=== PATIENT | female | born 1995 | race Caucasian/White ===

== ENCOUNTER 2023-06-25 20:33 | Outpatient (REF) | payer SELFPAY ==
[2023-07-01 14:09] LABS: Age Gdln ACOG Testing Note (.); IGP, rfx Aptima HPV ASCU Note (.)
== END 2023-06-25 20:34 | disposition home or self-care (01) ==
LOC: LAB 20:33
PROVIDERS: Visit Provider Obstetrics & Gynecology
DX: Z01.419 Encounter for gynecological examination (general) (routine) without abnormal findings (principal)
CPT/HCPCS: G0145

== ENCOUNTER 2023-10-03 13:46 | Outpatient (OUT) | payer SELFPAY ==
--- NOTE | 2023-10-03 13:48 | US_ITS ---
The [address] [address] Patient Name: ETHAN MADRIGAL MRN: [id number] date: 1995 Sex: F Assigned Patient Location: Current Patient Location: US Accession/Order Number: [id number] Exam Date: 10/03/2023 13:48 Report Date: 10/03/2023 22:42 At the request of: ASHOK AGEE Procedure: US OB transvaginal EXAMINATION: US OB transvaginal HISTORY: MISSED MENSES COMPARISON: No relevant comparison available. FINDINGS: GESTATIONAL SAC: Present and normal appearing. YOLK SAC: Present and normal appearing. POLE: Present and normal appearing. CARDIAC: Present. UTERUS: Small subchorionic hematoma/implantation bleed. OVARIES: Right: Normal. Left: Not seen. CERVIX: 5.6 cm in length and closed. CUL-DE-SAC: Normal. OTHER: None. AGE BY LMP: 8 weeks 6 days NEL BY LMP: 05/08/2024 AGE BY US CRL: 8 weeks 5 days NEL BY US CRL: 05/09/2024 US/US OB transvaginal IMPRESSION: 1. Single live intrauterine . Electronically authenticated by: JAZMÍN MURPHY Date: 10/03/2023 22:42
== END 2023-10-03 13:47 | disposition home or self-care (01) ==
LOC: US 13:46
PROVIDERS: Visit Provider Obstetrics & Gynecology
DX: Z34.91 Encounter for supervision of normal pregnancy, unspecified, first trimester (principal); N92.6 Irregular menstruation, unspecified; Z3A.08 8 weeks gestation of pregnancy
CPT/HCPCS: 76817

== ENCOUNTER 2023-11-28 14:17 | Outpatient (OUT) | payer BC, SELFPAY ==
[2023-11-28 15:16] LABS: Estimated Average Glucose 88 mg/dL; Glycohemoglobin A1C 4.7 % (4.5-6.2); Thyroid Stimulating Hormone 4.021 uIU/mL (0.358-3.740)
[2023-11-28 15:17] LABS: Basophils Percent Auto 0.4 % (0.2-2.0); Eosinophils Absolute Auto 0.1 10^3/uL (0.0-0.7); Eosinophils Percent Auto 1.2 % (0.9-7.0); Hematocrit 34.7 % (36.0-48.0); Hemoglobin 11.4 g/dL (12.0-16.0); Immature Granulocytes Abs Auto 0.15 10^3/uL (0.00-0.03); Immature Granulocytes Pct Auto 1.3 % (0.0-0.5); Lymphocytes Absolute Auto 2.6 10^3/uL (1.2-3.8); Lymphocytes Percent Auto 22.8 % (20.5-60.0); Mean Corpuscular HGB Conc 32.9 g/dL (29.9-35.2); Mean Corpuscular Hemoglobin 30.5 pg (26.7-34.0); Mean Corpuscular Volume 92.8 fL (81.0-99.0); Mean Platelet Volume 10.1 fL (9.5-13.5); Monocytes Absolute Auto 0.7 10^3/uL (0.3-0.8); Monocytes Percent Auto 6.5 % (1.7-12.0); Neutrophils Absolute Auto 7.7 10^3/uL (1.4-6.5); Neutrophils Percent Auto 67.8 % (43.0-75.0); Platelet Count 261 10^3/uL (150-450); Red Blood Count 3.74 10^6/uL (4.20-5.40); Red Cell Distribution Width 12.8 % (11.0-15.0); White Blood Count 11.3 10^3/uL (4.0-11.0)
[2023-11-29 07:10] LABS: Rubella Antibodies, IgG <0.90 index (Immune >0.99)
[2023-11-29 08:12] LABS: HCV Ab Non Reactive (Non Reactive); HIV Ab/p24 Ag Screen Non Reactive (Non Reactive)
[2024-01-16 14:45] LABS: HBsAg Screen Negative (Negative); Rapid Plasma Reagin, Quant Non Reactive titer (NonRea<1:1)
== END 2023-11-28 14:18 | disposition home or self-care (01) ==
LOC: LAB 14:17
PROVIDERS: Visit Provider Obstetrics & Gynecology
DX: N92.6 Irregular menstruation, unspecified (principal); Z36.0 Encounter for antenatal screening for chromosomal anomalies
CPT/HCPCS: 36415; 83036; 84443; 85025; 86592; 86762; 86803; 86850; 86900; 86901; 87086; 87150; 87186; 87340; 87389

== ENCOUNTER 2023-12-20 11:05 | Outpatient (OUT) | payer BC, SELFPAY ==
--- OUTSIDE RECORDS SUMMARY | 2023-12-20 11:08 | XMS_ITS | CCD ---
Author Name Unknown Address [address] [place] [id number] Organization [facility] Care Team Providers Care Project Architect Name Role Phone OMAR, DR FELIZ Attending Unavailable KARASIK, DR FELIZ Admitting Unavailable ANUEL, DR PULIDO Attending Unavailable ANUEL, DR PULIDO Consulting Unavailable ANUEL, DR PULIDO Admitting Unavailable ANUEL, DR PULIDO Attending Unavailable ANUEL, DR PULIDO Consulting Unavailable ANUEL, DR PULIDO Admitting Unavailable ANUEL, DR PULIDO Attending Unavailable ANUEL, DR PULIDO Consulting Unavailable ANUEL, DR PULIDO Admitting Unavailable KARASIK, DR FELIZ Consulting Unavailable KARASIK, DR FELIZ Admitting Unavailable KARASIK, DR FELIZ Procedure Practitioner Unava ilable KARASIK, DR FELIZ Attending Unavailable ANUEL, DR PULIDO Consulting Unavailable AGUBOSIM, ANDRE Consulting Unavailable IOFFE-PARRIS, FRANCESCO Consulting Unavailab le KARASIK, DR FELIZ Consulting Unavailable KARASIK, DR FELIZ Admitting Unavailable KARASIK, DR FELIZ Attending Unavailable D LO, DR MARIELLA Ramirez Consulting Unavailable ANUEL, DR PULIDO Consulting Unavailable ANUEL, DR PULIDO Attending Unavailable ANUEL, DR PULIDO Admitting Unavailable ANUEL, DR PULIDO Attending Unavailable ANUEL, DR PULIDO Admitting Unavailable ANUEL, ASHOK Attending Unavailable ANUEL, ASHOK Attending Unavailable Problems Active Problems Problem Classification Problem Date Documented Da te Episodic/Chronic Other and delivery including normal (9 sources) Encounter for care and examination of lactating mother; Translations: [Encounter for routine follow-up] Onset: 01-01-2022 Episodic Unclassified (1 source) CONTACT W/AND (SUSP) EXPOS COVID-19; Translations: [CONTACT W/AND (SUSP) EXPOS COVID-19] Onset: 01-03-2022 Past or Other Problems Problem Classification Problem Date Documented Date Episodic/Chronic Diabetes mellitus without complication (4 sources) Other abnormal glucose; Translations: [OTHER ABNORMAL GLUCOSE] Onset: 11-07-2021 Episodic Immunizations and screening for infectious disease (1 source) Contact with and (suspected) exposure to infections with a predominantly sexual mode of transmission; Translations: [CONTCT W EXPOS INFECT SEXUAL TRNSMS] Onset: 11-01-2021 Episodic Other complications of ; puerperium affecting management of mother (1 source) Abnormality in heart rate and rhythm complicating labor and delivery; Translations: [ABN FETL HEART RATE RHYTHM COMP L AND D] Onset: 01-03-2022 Episodic Other complications of ; puerperium affecting management of mother (1 source) Streptococcus B carrier state complicating childbirth; Translations: [STREP B GRIFFITH STATE COMP CHILDBIRTH] Onset: 01-03-2022 Episodic Other complications of (1 source) Maternal care for excessive growth, third trimester, not applicable or unspecified; Translations: [MAT CARE EXCSS FTL GRTH 3RD TRI UNS] Onset: 01-03-2022 Episodic Other screening for suspected conditions (not mental disorders or infectious disease) (8 sources) Encounter for screening for Streptococcus B; Translations: [Encounter for screening for diabetes mellitus] Onset: 10-26-2021 Episodic Prolonged (4 sources) Post-term ; Translations: [POST-TERM ] Onset: 12-24-2021 Episodic Residual codes; unclassified (1 source) 40 weeks gestation of ; Translations: [40 WEEKS GESTATION OF ] Onset: 01-03-2022 Episodic Umbilical cord complication (1 source) Labor and delivery complicated by cord around neck, without compression, not applicable or unspecified; Translations: [L AND D COMP CORD NECK NO COMPRS NA/UNS] Onset: 01-03-2022 Episodic Results Test Name Value Interpretation Reference Range Facil ity CBC W MANUAL DIFFon 12-26-19 22 ATYPICAL LYMPH # Normal [facility] Comment on above: Performed By: #### C NOMAN #### [facility] [address] [place], [place] [address] Dr. Amy Carrion ATYPICAL LYMPH % Normal [facility] Comment on above: Performed By: #### C NOMAN #### [facility] [address] [place] [address] [address] Amy Carrion BAND # 0.4 103/ul Critically high 0.0-0.3 [facility] Comment on above: Performed By: #### C BCMAN #### [facility] [address] [place] [address] Dr. Amy Carrion BAND % 3 % Normal 0-5 [facility] Comment on above: Performed By: #### C NOMAN #### [facility] [address] [place] [address] Dr. Amy Carrion BASOM # 0.00 103/ul Normal 0.00-0.10 [facility] Comment on above: Performed By: #### C NOMAN #### [facility] [address] [place] [address] Dr. Amy Carrion BASOM % 0.0 % Critically low 0.2-2.0 [facility] Comment on above: Performed By: #### C NOMAN #### [facility] [address] [place] [address] Dr. Amy Carrion BLAST # Normal [facility] Comment on above: Performed By: #### C NOMAN #### [facility] [address] [place] [address] Dr. Amy Carrion BLAST % Normal [facility] Comment on above: Performed By: #### C NOMAN #### [facility] [address] [place] [address] Dr. Amy Carrion CORRECTED WBC Normal 4.0-11.0 [facility] Comment on above: Performed By: #### C BCKAM #### [facility] [address] [place] [address] Dr. Amy Carrion EOS # 0.00 103/ul Normal 0.00-0.70 [facility] Comment on above: Performed By: #### C NOMAN #### [facility] [address] [place] [address] Dr. Amy Carrion EOS% 0.0 % Critically low 0.9-7.0 [facility] Comment on above: Performed By: #### C NOMAN #### [facility] [address] [place] [address] [address] Amy Carrion HCT 24.9 % Critically low 36.0-48.0 [facility] Comment on above: Performed By: #### C NOMAN #### [facility] [address] [place] [address] Dr. Amy Carrion HGB 8.0 g/dl Critically low 12.0-16.0 [facility] Comment on above: Performed By: #### C NOMAN #### [facility] [address] [place] [address] Dr. Amy Carrion LYMPHM # 3.06 103/ul Normal 1.20-3.80 [facility] Comment on above: Performed By: #### C NOMAN #### [facility] [address] [place] [address] Dr. Amy Carrion LYMPHM% 22.0 % Normal 20.5-60.0 [facility] Comment on above: Performed By: #### C NOMAN #### [facility] [address] [place] [address] Dr. Amy Carrion MCH 30.8 pg Normal 26.7-34.0 [facility] Comment on above: Performed By: #### C NOMAN #### [facility] [address] [place] [address] Dr. Amy Carrion MCHC 32.1 g/dl Normal 29.9-35.2 [facility] Comment on above: Performed By: #### C NOMAN #### [facility] [address] [place] [address] Dr. Amy Carrion MCV 95.8 fL Normal 81.0-99.0 [facility] Comment on above: Performed By: #### C NOMAN #### [facility] [address] [place] [address] Dr. Amy Carrion METAMYELOCYTE # Normal [facility] Comment on above: Performed By: #### C NOMAN #### [facility] [address] [place] [address] Dr. Amy Carrion METAMYELOCYTE % Normal [facility] Comment on above: Performed By: #### C NOMAN #### [facility] [address] [place] [address] [address] Amy Carrion MONOM# 1.25 103/ul Critically high 0.30-0.80 [facility] Comment on above: Performed By: #### C NOMAN #### [facility] [address] [address] [address] Amy Carrion MONOM% 9.0 % Normal 1.7-12.0 [facility] Comment on above: Performed By: #### C NOMAN #### [facility] [address] [address] [address] Amy Carrion MPV 11.0 fL Normal 9.5-13.5 [facility] Comment on above: Performed By: #### C NOMAN #### [facility] [address] [place] [address] Dr. Amy Carrion MYELOCYTE # Normal [facility] Comment on above: Performed By: #### C NOMAN #### [facility] [address] [place] [address] Dr. Amy Carrion MYELOCYTE % Normal [facility] Comment on above: Performed By: #### C NOMAN #### [facility] [address] [place] [address] Dr. Amy Carrion NRBC Normal [facility] Comment on above: Performed By: #### C NOMAN #### [facility] [address] [place] [address] Dr. Amy Carrion PLT 170 103/ul Normal 150-450 [facility] Comment on above: Performed By: #### C NOMAN #### [facility] [address] [place] [address] Dr. Amy Carrion RBC 2.60 106/ul Critically low 4.20-5.40 [facility] Comment on above: Performed By: #### C NOMAN #### [facility] [address] [place] [address] [address] Amy Carrion RDW 13.1 % Normal 11.0-15.0 [facility] Comment on above: Performed By: #### C BCMAN #### [facility] [address] [place] [address] Dr. Amy Carrion SEG # 9.17 103/ul Critically high 1.40-6.50 [facility] Comment on above: Performed By: #### C BCMAN #### [facility] [address] [place] [address] Dr. Amy Carrion SEG % 66.0 % Normal 43.0-75.0 [facility] Comment on above: Performed By: #### C BCMAN #### [facility] [address] [place] [address] Dr. Amy Carrion WBC 13.9 103/ul Critically high 4.0-11.0 [facility] Comment on above: Performed By: #### C NOMAN #### [facility] [address] [place] [address] Dr. Amy Carrion CBC AUTO DIFFon 12-25-2021 BASO # 0.0 103/ul Normal 0.0-0.1 [facility] Comment on above: Performed By: #### C BC #### [facility] [address] [place] [address] Dr. Amy Carrion Basophils/100 WBC (Bld) 0.1 % Critically low 0.2-2.0 [facility] Comment on above: Performed By: #### C BC #### [facility] [address] [place] [address] Dr. Amy Carrion EO # 0.0 103/ul Normal 0.0-0.7 [facility] Comment on above: Performed By: #### C BC #### [facility] [address] [place] [address] Dr. Amy Carrion Eosinophils/100 WBC (Bld) 0.0 % Critically low 0.9-7.0 [facility] Comment on above: Performed By: #### C BC #### [facility] [address] [place] [address] Dr. Amy Carrion Erythrocyte distribution width (RBC) [Ratio] 13.0 % Normal 11.0-15.0 [facility] Comment on above: Performed By: #### C BC #### [facility] [address] [place] [address] [address] Amy Carrion Hematocrit (Bld) [Volume fraction] 25.2 % Critically low 36.0-48.0 [facility] Comment on above: Performed By: #### C BC #### [facility] [address] [place] [address] [address] Amy Carrion Hemoglobin (Bld) [Mass/Vol] 8.2 g/dL Critically low 12.0-16.0 [facility] Comment on above: Result Comment: Post Performed By: #### C BC #### [facility] [address] [place] [address] Dr. Amy Carrion IG # 0.27 10e3/ul Critically high 0.00-0.03 [facility] Comment on above: Performed By: #### C BC #### [facility] [address] [place] [address] Dr. Amy Carrion IG % 1.3 % Critically high 0.0-0.5 [facility] Comment on above: Performed By: #### C BC #### [facility] [address] [place] [address] Dr. Amy Carrion LYMPH # 2.3 103/ul Normal 1.2-3.8 [facility] Comment on above: Performed By: #### C BC #### [facility] [address] [place] [address] Dr. Amy Carrion Lymphocytes/100 WBC (Bld) 10.8 % Critically low 20.5-60.0 [facility] Comment on above: Performed By: #### C BC #### [facility] [address] [place] [address] Dr. Amy Carrion MANUAL DIFF REQ NO Normal [facility] Comment on above: Performed By: #### C BC #### [facility] [address] [place] [address] Dr. Amy Carrion MCH (RBC) [Entitic mass] 30.6 pg Normal 26.7-34.0 [facility] Comment on above: Performed By: #### C BC #### [facility] [address] [place] [address] [address] Amy Carrion MCHC (RBC) [Mass/Vol] 32.5 g/dL Normal 29.9-35.2 [facility] Comment on above: Performed By: #### C BC #### [facility] [address] [place] [address] [address] Amy Carrion MCV (RBC) [Entitic vol] 94.0 fL Normal 81.0-99.0 [facility] Comment on above: Performed By: #### C BC #### [facility] [address] [place] [address] [address] Amy Carrion MONO # 1.8 103/ul Critically high 0.3-0.8 [facility] Comment on above: Performed By: #### C BC #### [facility] [address] [place] [address] Dr. Amy Carrion Monocytes/100 WBC (Bld) 8.4 % Normal 1.7-12.0 [facility] Comment on above: Performed By: #### C BC #### [facility] [address] [place] [address] [address] Amy Carrion NEUT # 16.7 103/ul Critically high 1.4-6.5 [facility] Comment on above: Performed By: #### C BC #### [facility] [address] [place] [address] Dr. Amy Carrion Neutrophils/100 WBC (Bld) 79.4 % Critically high 43.0-75.0 [facility] Comment on above: Performed By: #### C BC #### [facility] [address] [place] [address] [address] Amy Carrion Platelet mean volume (Bld) [Entitic vol] 10.9 fL Normal 9.5-13.5 [facility] Comment on above: Performed By: #### C BC #### [facility] [address] [place] [address] [address] Amy Carrion PLT 167 103/ul Normal 150-450 [facility] Comment on above: Performed By: #### C BC #### [facility] [address] [place] [address] Dr. Amy Carrion RBC 2.68 106/ul Critically low 4.20-5.40 [facility] Comment on above: Performed By: #### C BC #### [facility] [address] [place] [address] Dr. Amy Carrion WBC 21.0 103/ul Critically high 4.0-11.0 [facility] Comment on above: Performed By: #### C BC #### [facility] [address] [place] [address] Dr. Amy Carrion ASYMPTOMATIC COVID-19 ANTIGE Non 12-24-2021 EUA Statement SEE BELOW Normal [facility] Comment on above: Result Comment: This test has not been FDA cleared or approved, but has been authorized by the FDA under an Emergency Use Authorization (EUA) for use by authorized laboratories certified under CLIA that meet the requirements to perform moderate or high complexity testing. This test has been authorized only for the detection of proteins from SARS-CoV-2, not for any other viruses or pathogens. The emergency use of this test is authorized for the duration of the declaration that circumstances exist justifying the authorization of emergency use of in vitro diagnostic tests for detection and/or diagnosis of Covid-19 under section 564(b)(1) of the Act, 21 U.S.C. 360bbb-3(b)(1), unless the declaration is terminated or authorization is revoked sooner. Performed By: #### C VDAGA #### [facility] [address] [place] [address] Dr. Amy Carrion SARS-CoV-2 (COVID-19) RNA KERA+probe Ql (Unsp spec) Negative Normal NEGATIVE [facility] Comment on above: Result Comment: Nega tive results are presumptive. They do not preclude infection and should not be used as the sole basis for treatment decisions. Additional confirmatory testing by a molecular method should be considered. Performed By: #### C VDAGA #### [facility] [address] [place] [address] Dr. Amy Carrion CBC W MANUAL DIFFon 12-24-19 22 ATYPICAL LYMPH # Normal [facility] Comment on above: Performed By: #### C NOMAN #### [facility] [address] [place] [address] Dr. Amy Carrion ATYPICAL LYMPH % Normal [facility] Comment on above: Performed By: #### C NOMAN #### [facility] [address] [place] [address] Dr. Amy Carrion BAND # 0.3 103/ul Normal 0.0-0.3 [facility] Comment on above: Performed By: #### C NOMAN #### [facility] [address] [place] [address] Dr. Amy Carrion BAND % 2 % Normal 0-5 [facility] Comment on above: Performed By: #### C NOMAN #### [facility] [address] [place] [address] Dr. Amy Carrion BASOM # 0.00 103/ul Normal 0.00-0.10 [facility] Comment on above: Performed By: #### C NOMAN #### [facility] [address] [place] [address] Dr. Amy Carrion BASOM % 0.0 % Critically low 0.2-2.0 [facility] Comment on above: Performed By: #### C NOMAN #### [facility] [address] [place] [address] Dr. Amy Carrion BLAST # Normal [facility] Comment on above: Performed By: #### C NOMAN #### [facility] [address] [place] [address] Dr. Amy Carrion BLAST % Normal [facility] Comment on above: Performed By: #### C NOMAN #### [facility] [address] [place] [address] Dr. Amy Carrion CORRECTED WBC Normal 4.0-11.0 [facility] Comment on above: Performed By: #### C NOMAN #### [facility] [address] [place] [address] Dr. Amy Carrion EOS # 0.00 103/ul Normal 0.00-0.70 [facility] Comment on above: Performed By: #### C NOMAN #### [facility] [address] [place] [address] [address] Amy Carrion EOS% 0.0 % Critically low 0.9-7.0 [facility] Comment on above: Performed By: #### C NOMAN #### [facility] [address] [place] [address] [address] Amy Carrion HCT 36.0 % Normal 36.0-48.0 [facility] Comment on above: Performed By: #### C NOMAN #### [facility] [address] [place] [address] Dr. Amy Carrion HGB 12.2 g/dl Normal 12.0-16.0 [facility] Comment on above: Performed By: #### C NOMAN #### [facility] [address] [place] [address] Dr. Amy Carrion LYMPHM # 1.56 103/ul Normal 1.20-3.80 [facility] Comment on above: Performed By: #### Luzmaria TINEO #### [facility] [address] [place] [address] Dr. Amy Carrion LYMPHM% 9.0 % Critically low 20.5-60.0 [facility] Comment on above: Performed By: #### C NOMAN #### [facility] [address] [place] [address] Dr. Amy Carrion MCH 30.8 pg Normal 26.7-34.0 [facility] Comment on above: Performed By: #### C NOMAN #### [facility] [address] [place] [address] Dr. Amy Carrion MCHC 33.9 g/dl Normal 29.9-35.2 [facility] Comment on above: Performed By: #### Luzmaria TINEO #### [facility] [address] [place] [address] Dr. Amy Carrion MCV 90.9 fL Normal 81.0-99.0 [facility] Comment on above: Performed By: #### Luzmaria TINEO #### [facility] [address] [place] [address] Dr. Amy Carrion METAMYELOCYTE # Normal [facility] Comment on above: Performed By: #### C NOMAN #### [facility] [address] [place] [address] [address] Amy Carrion METAMYELOCYTE % Normal [facility] Comment on above: Performed By: #### C NOMAN #### [facility] [address] [address] [address] Amy Carrion MONOM# 0.86 103/ul Critically high 0.30-0.80 [facility] Comment on above: Performed By: #### C NOMAN #### [facility] [address] [address] [address] Amy Carrion MONOM% 5.0 % Normal 1.7-12.0 [facility] Comment on above: Performed By: #### C NOMAN #### [facility] [address] [place] [address] Dr. Amy Carrion MPV 11.1 fL Normal 9.5-13.5 [facility] Comment on above: Performed By: #### C NOMAN #### [facility] [address] [place] [address] Dr. Amy Carrion MYELOCYTE # Normal [facility] Comment on above: Performed By: #### C NOMAN #### [facility] [address] [place] [address] Dr. Amy Carrion MYELOCYTE % Normal [facility] Comment on above: Performed By: #### C NOMAN #### [facility] [address] [place] [address] Dr. Amy Carrion NRBC Normal [facility] Comment on above: Performed By: #### C NOMAN #### [facility] [address] [place] [address] [address] Amy Carrion PLT 203 103/ul Normal 150-450 [facility] Comment on above: Performed By: #### C NOMAN #### [facility] [address] [place] [address] Dr. Amy Carrion RBC 3.96 106/ul Critically low 4.20-5.40 [facility] Comment on above: Performed By: #### C NOMAN #### [facility] [address] [place] [address] [address] Amy Carrion RDW 12.7 % Normal 11.0-15.0 [facility] Comment on above: Performed By: #### C NOMAN #### [facility] [address] [place] [address] [address] Amy Carrion SEG # 14.53 103/ul Critically high 1.40-6.50 [facility] Comment on above: Performed By: #### C NOMAN #### [facility] [address] [place] [address] [address] Amy Carrion SEG % 84.0 % Critically high 43.0-75.0 [facility] Comment on above: Performed By: #### C NOMAN #### [facility] [address] [place] [address] Dr. Amy Carrion WBC 17.3 103/ul Critically high 4.0-11.0 [facility] Comment on above: Performed By: #### Luzmaria TINEO #### [facility] [address] [place] [address] Dr. Amy Carrion DRUG SCREEN RAPID (URINE)on 12-24-2021 AMP Negative Normal NEGATIVE [facility] Comment on above: Performed By: #### D RUGRPD #### [facility] [address] [place] [address] Dr. Amy Carrion BAR Negative Normal NEGATIVE [facility] Comment on above: Performed By: #### D RUGRPD #### [facility] [address] [place] [address] Dr. Amy Carrion BUP Negative Normal NEGATIVE [facility] Comment on above: Performed By: #### D RUGRPD #### [facility] [address] [place] [address] Dr. Amy Carrion BZO Negative Normal NEGATIVE [facility] Comment on above: Performed By: #### D RUGRPD #### [facility] [address] [address] [address] Amy Carrion MARISSA Negative Normal NEGATIVE [facility] Comment on above: Performed By: #### D RUGRPD #### [facility] [address] [place] [address] Dr. Amy Carrion CUT-OFFS SEE BELOW Normal [facility] Comment on above: Result Comment: AMP (Amphetamine): 500ng/mL, BAR (Barbituates): 200 ng/mL, BZO (Benzodiazepines): 150 ng/mL, BUP (Buprenorphine): 10 ng/mL, MARISSA (Cocaine): 150 ng/mL, mAMP (Methamphetamine): 500 ng/mL, MTD (Methadone): 200 ng/mL, OPI (Opiates): 100 ng/mL, OXY (Oxycodone): 100 ng/mL, PCP (Phencyclidine): 25 ng/mL, PPX (Propoxyphene): 300 ng/mL, THC (Cannabinoids): 50 ng/mL, TCA (Trycyclic Antidepressants): 300 ng/mL Performed By: #### D RUGRPD #### [facility] [address] [place] [address] Dr. Amy Carrion DRUG CUT HEADER DRUG CLASS TEST SYSTEM CUT-OFF CONCENTRATIONS ARE FOLLOWS: Normal [facility] Comment on above: Performed By: #### D RUGRPD #### [facility] [address] [place] [address] Dr. Amy Carrion mAMP Negative Normal NEGATIVE [facility] Comment on above: Performed By: #### D RUGRPD #### [facility] [address] [place] [address] Dr. Amy Carrion MTD Negative Normal NEGATIVE [facility] Comment on above: Performed By: #### D RUGRPD #### [facility] [address] [place] [address] Dr. Amy Carrion OPI Negative Normal NEGATIVE [facility] Comment on above: Performed By: #### D RUGRPD #### [facility] [address] [place] [address] Dr. Amy Carrion OXY Negative Normal NEGATIVE [facility] Comment on above: Performed By: #### D RUGRPD #### [facility] [address] [place] [address] Dr. Amy Carrion PCP Negative Normal NEGATIVE [facility] Comment on above: Performed By: #### D RUGRPD #### [facility] [address] [place] [address] Dr. Amy Carrion PPX Negative Normal NEGATIVE [facility] Comment on above: Performed By: #### D RUGRPD #### [facility] [address] [address] [address] Amy Carrion TCA Negative Normal NEGATIVE [facility] Comment on above: Performed By: #### D RUGRPD #### [facility] [address] [place] [address] Dr. Amy Carrion THC Negative Normal NEGATIVE [facility] Comment on above: Performed By: #### D RUGRPD #### [facility] [address] [place] [address] Dr. Amy Carrion TYPE AND SCREENon 12-24-2021 TYPE AND SCREEN Negative Normal [facility] Comment on above: Performed By: #### G TT3P #### [facility] [address] [place] [address] Dr. Amy Carrion US PREG BIOPHY W NON STRESSo n 12-22-2021 US PREG BIOPHY W NON STRESS EXAMINATION: US PREG BIOPHY W NON STRESS HISTORY: Post-term COMPARISON: No relevant comparison available. TECHNIQUE: Ultrasound biophysical profile was performed in the radiology department. FINDINGS: BREATHING MOVEMENTS: 2.0 GROSS BODY MOVEMENTS: 2.0 TONE: 2.0 QUALITATIVE AMNIOTIC FLUID VOLUME: 2.0 PRESENTATION: Cephalic HEART RATE: 132.4 bpm H.B./min AMNIOTIC FLUID VOLUME: 22.2 cm cm GESTATIONAL AGE: 40 weeks 0 days CONCLUSION: Total biophysical profile score: 8.0 Electronically authenticated by: MARIELLA WHITEHEAD Date: 2021-12-22 10:47 Normal [facility] US PREG GROWTHon 12-22-2021 US PREG GROWTH EXAMINATION: US PREG GROWTH HISTORY: Large for gestation age fetus COMPARISON: No relevant comparison available. FINDINGS: Heart Rate: 132.4 bpm Amniotic Fluid Volume: 22.2 cm , above the 95th percentile Number: 1.0 Position: Cephalic presentation, longitudinal lie Maximum Vertical Pocket: 5.8 cm cm 3.2 cm cm 9.7 cm cm 3.4 cm cm BIOMETRY: BPD: 9.5 cm cm; 38 weeks 4 days; 57% HC: 34.3 cmcm; 39 weeks 5 days, 39% AC: 37.9 cm cm; 41 weeks 6 days, greater than 97% FL: 7.6 cm cm; 38 weeks 6 days; 32.6 % % EFW: 4131.4 grams, 9 lbs. 2 oz., 87% FL/AC: 20.0 FL/BPD: 80.2 HC/AC: 0.9 GESTATIONAL AGE: Age by EDC: 40 weeks 0 days NEL by EDC: 12/22/2021 Age by US: 39 weeks 5 days NEL by US: 12/24/2021 IMPRESSION: Polyhydramnios Estimated weight 9 lbs. 2 oz. Electronically authenticated by: MARIELLA WHITEHEAD Date: 2021-12-22 10:49 Normal [facility] GROUP B STREP CULTUREon S. agalactiae Ag Ql (Unsp spec) Culture Observations: Faxed to Dr. Bose/Dr. Nelson's office 11/27/21. Isolate 1 Streptococcus agalactiae Heavy growth of ORGANISM 1 Streptococcus agalactiae ANTIBIOTIC M.I.C RX STATUS Benzylpenicillin <=0.06 S F Ampicillin <=0.25 S F Cefotaxime <=0.12 S F Ceftriaxone <=0.12 S F Levofloxacin 0.5 S F Inducible Clindamycin Resistance Neg NEG F Erythromycin <=0.12 S F Clindamycin <=0.25 S F Linezolid <=2 S F Vancomycin 0.5 S F Tetracycline >=16 R F Normal [facility] Comment on above: Performed By: #### G TT3P #### [facility] [address] [place] [address] Dr. Amy Carrion GTT 3 HR PREGon 11-07-2021 Glucose [Mass/Vol] 91 mg/dL Normal 74-106 [facility] Comment on above: Performed By: #### G TT3P #### [facility] [address] [place] [address] Dr. Amy Carrion Glucose [Mass/Vol] 172 mg/dL Normal [facility] Comment on above: Performed By: #### G TT3P #### [facility] [address] [address] [address] Amy Carrion Glucose [Mass/Vol] 134 mg/dL Normal [facility] Comment on above: Performed By: #### G TT3P #### [facility] [address] [place] [address] Dr. Amy Carrion Glucose [Mass/Vol] 117 mg/dL Normal [facility] Comment on above: Performed By: #### G TT3P #### [facility] [address] [place] [address] Dr. Amy Carrion HEPATITIS C ANTIBODYon 10-27 Hep C Virus Ab 0.2 s/co ratio Normal 0.0-0.9 [facility] Comment on above: Result Comment: Nega tive: < 0.8 Indeterminate: 0.8 - 0.9 Positive: > 0.9 . The CDC recommends that a positive HCV antibody result be followed up with a HCV Nucleic Acid Amplification test (550930). Performed By: #### G TT3P #### [facility] [address] [place] [address] Dr. Amy Carrion HIV 1 AND 2 WITH REFLEXon HIV Screen 4th Generation wRfx Non-Reactive Normal Non Reactive [facility] Comment on above: Performed By: #### H IV12 #### [facility] [address] [place] [address] Dr. Amy Carrion GLUCOSE - 1HRon 10-26-2021 Glucose [Mass/Vol] 142 mg/dL Critically high 74-106 [facility] Comment on above: Performed By: #### G LU1HR #### [facility] [address] [place] [address] Dr. Amy Carrion HEMOGRAM AND PLATELon 2020 Hematocrit (Bld) [Volume fraction] 32.8 % Critically low 36.0-48.0 [facility] Comment on above: Performed By: #### H H #### [facility] [address] [place] [address] Dr. Amy Carrion Hemoglobin (Bld) [Mass/Vol] 10.7 g/dL Critically low 12.0-16.0 [facility] Comment on above: Performed By: #### H H #### [facility] [address] [address] [address] Amy Carrion MCH (RBC) [Entitic mass] 30.6 pg Normal 26.7-34.0 [facility] Comment on above: Performed By: #### H H #### [facility] [address] [address] [address] Amy Carrion MCHC (RBC) [Mass/Vol] 32.6 g/dL Normal 29.9-35.2 [facility] Comment on above: Performed By: #### H H #### [facility] [address] [place] [address] Dr. Amy aCrrion MCV (RBC) [Entitic vol] 93.7 fL Normal 81.0-99.0 [facility] Comment on above: Performed By: #### H H #### [facility] [address] [address] [address] Amy Carrion PLT 197 103/ul Normal 150-450 [facility] Comment on above: Performed By: #### H H #### [facility] [address] [address] [address] Amy Carrion RBC 3.50 106/ul Critically low 4.20-5.40 [facility] Comment on above: Performed By: #### H H #### [facility] [address] [address] [address] Amy Carrion WBC 12.4 103/ul Critically high 4.0-11.0 [facility] Comment on above: Performed By: #### H H #### [facility] [address] [address] [address] mAy Carrion Encounters Encounter Date Encounter Type Care Provider Facility Start: 12-05-2023 End: 12-05-2023 ambulatory ASHOK BOSE Not Available Start: 10-31-2023 End: 10-31-2023 ambulatory ASHOK BOSE Not Available Start: 07-27-2022 End: 07-27-[address] ASHOK BOSE Facility:[facility] Start: 01-02-2022 End: 01-18-[address] ASHOK BOSE Facility:[facility] Start: 01-01-2022 End: 01-01-[address] TRAY NELSON Facility:[facility] Start: 12-24-2021 End: 12-26-2021 Evaluation and management of inpatient DR TRAY NELSON Facility:[facility] Start: 12-22-2021 End: 12-22-[address] TRAY NELSON Facility:[facility] Start: 11-22-2021 End: 11-22-[address] ASHOK BOSE Facility:[facility] Start: 11-07-2021 End: 11-08-[address] ASHOK BOSE Facility:[facility] Start: 10-26-2021 End: 10-27-[address] ASHOK BOSE Facility:[facility] Procedures Date Procedure Procedure Detail Performing Clinician Start: 12-24-2021 Extraction of Produc ts of Conception, Low Cervical, Open Approach DR TRAY NELSON Payers Date Payer Category Payer Unknown [id number] 1995 Unknown [id number] 2.16.84 [id number] 1997 Unknown [id number] 2.16.84 [id number] 1997 Unknown [id number] 2.16.84 [id number] 1997 Unknown [id number] 2.16.84 [id number] 1997 Unknown [id number] 2.16.84 [id number] 1997 Unknown [id number] 2.16.84 [id number] 1997 Unknown [id number] 2.16.84 [id number] 1997 Unknown [id number] 2.16.84 [id number] 1997 Unknown [id number] 2.16.84 [id number] 1959 Self-pay 1957 Unknown [id number] Summary Purpose Family History No Family History Records FoundNo Family History Records Found Advance Directives No Advanced Directives Records FoundNo Advanced Directives Records Found Additional Source Comments INFORMATION SOURCE (unrecogn ized section and content) DATE CREATED AUTHOR 07/27/2022 [facility] DATE CREATED AUTHOR AUTHOR'S ORGANIZ ATION 12/06/2023 [facility] EPIC FOR RECORDS PERTAINING TO PATIENTS WHO ARE OR HAVE BEEN ENROLLED IN A CHEMICAL DEPENDENCY/SUBSTANCEABUSE PROGRAM, SOME INFORMATION MAY BE OMITTED. This clinical summary was aggregated from multiple sources. Caution should be exercised in using it in the provision of clinical care. This summary normalizes information from multiple sources, and as a consequence, information in this document may materially change the coding, format and clinical context of patient data. In addition, data may be omitted in some cases. CLINICAL DECISIONS SHOULD BE BASED ON THE PRIMARY CLINICAL RECORDS. [facility] [employer] provides no warranty or guarantee of the accuracy or completeness of information in this document.
--- NOTE | 2023-12-20 11:11 | US_ITS ---
[address] [address] Patient Name: ETHAN MADRIGAL MRN: [id number] date: 1995 Sex: F Assigned Patient Location: US Current Patient Location: Accession/Order Number: [id number] Exam Date: 12/20/2023 11:12 Report Date: 12/20/2023 13:08 At the request of: ASHOK AGEE Procedure: US OB anatomy EXAMINATION: US OB anatomy, US OB transvaginal HISTORY: Screening Z36.89 COMPARISON: No relevant comparison available. TECHNIQUE: Transabdominal sonographic examination was performed for obstetrical and evaluation. FINDINGS: Number: 1 Heart Rate: 142.9 bpm H.B. /min Amniotic Fluid Volume: Subjectively normal position: Breech presentation, longitudinal lie Placental Location: Posterior, placental edge 2.1 cm from the internal os, grade 0 Cervix Length: 4.6 cm , closed Normal anatomy: Lateral ventricles, cerebellum, posterior fossa, nose, lips, orbits, four-chamber heart, RVOT, LVOT, diaphragm, stomach, kidneys, abdominal cord insertion, bladder, umbilical arteries, three-vessel cord, spine, extremities BIOMETRY: BPD: 4.5 cm 19 weeks 5 days ,38% HC: 17.1 cm 19 weeks 5 days,27% AC: 15.4 cm 20 weeks 4 days, 64% FL: 3.0 cm 19 weeks 2 days , 19% EFW:322.8 grams; 11 oz, 42% FL/AC: 19.5 FL/BPD: 66.2 HC/AC: 1.1 GESTATIONAL AGE: Age by EDC: 20 weeks 0 days Age by current US: 19 weeks 6 days NEL by current US: 05/09/2024 ENL by EDC: 05/08/2024 US/US OB anatomy IMPRESSION: Low lying placenta, otherwise normal anatomy scan Closed cervix measuring 4.6 cm in length *Reference: [employer] Practice Guideline for the performance of Obstetric Ultrasound Examinations, August 25, 2007. Electronically authenticated by: MARIELLA WHITEHEAD Date: 12/20/2023 13:08
--- NOTE | 2023-12-20 11:11 | US_ITS ---
[address] [address] Patient Name: ETHAN MADRIGAL MRN: [id number] date: 1995 Sex: F Assigned Patient Location: US Current Patient Location: Accession/Order Number: [id number] Exam Date: 12/20/2023 11:12 Report Date: 12/20/2023 13:08 At the request of: ASHOK AGEE Procedure: US OB transvaginal EXAMINATION: US OB anatomy, US OB transvaginal HISTORY: Screening Z36.89 COMPARISON: No relevant comparison available. TECHNIQUE: Transabdominal sonographic examination was performed for obstetrical and evaluation. FINDINGS: Number: 1 Heart Rate: 142.9 bpm H.B. /min Amniotic Fluid Volume: Subjectively normal position: Breech presentation, longitudinal lie Placental Location: Posterior, placental edge 2.1 cm from the internal os, grade 0 Cervix Length: 4.6 cm , closed Normal anatomy: Lateral ventricles, cerebellum, posterior fossa, nose, lips, orbits, four-chamber heart, RVOT, LVOT, diaphragm, stomach, kidneys, abdominal cord insertion, bladder, umbilical arteries, three-vessel cord, spine, extremities BIOMETRY: BPD: 4.5 cm 19 weeks 5 days ,38% HC: 17.1 cm 19 weeks 5 days,27% AC: 15.4 cm 20 weeks 4 days, 64% FL: 3.0 cm 19 weeks 2 days , 19% EFW:322.8 grams; 11 oz, 42% FL/AC: 19.5 FL/BPD: 66.2 HC/AC: 1.1 GESTATIONAL AGE: Age by EDC: 20 weeks 0 days Age by current US: 19 weeks 6 days NEL by current US: 05/09/2024 NEL by EDC: 05/08/2024 US/US OB transvaginal IMPRESSION: Low lying placenta, otherwise normal anatomy scan Closed cervix measuring 4.6 cm in length *Reference: [employer] Practice Guideline for the performance of Obstetric Ultrasound Examinations, August 25, 2007. Electronically authenticated by: MARIELLA WHITEHEAD Date: 12/20/2023 13:08
== END 2023-12-20 11:06 | disposition home or self-care (01) ==
LOC: US 11:05
PROVIDERS: Visit Provider Obstetrics & Gynecology
DX: Z36.89 Encounter for other specified antenatal screening (principal); O44.42 Low lying placenta NOS or without hemorrhage, second trimester; Z3A.20 20 weeks gestation of pregnancy
CPT/HCPCS: 76805; 76817

== ENCOUNTER 2024-01-14 15:23 | Outpatient (OUT) | payer BC, SELFPAY ==
--- NOTE | 2024-01-14 | US_ITS ---
[address] [address] Patient Name: ETHAN MADRIGAL MRN: [id number] date: 1995 Sex: F Assigned Patient Location: [facility] Current Patient Location: [facility] Accession/Order Number: [id number] Exam Date: 01/14/2024 14:32 Report Date: 01/14/2024 15:30 At the request of: ASHOK AGEE Procedure: US OB cervical length EXAMINATION: US OB placenta, US OB cervical length HISTORY: LOW LYING PLACENTA COMPARISON: [Ultrasound OB anatomy FINDINGS: PLACENTA: Posterior, grade 0, with lower margin 3.5 cm from os. CERVIX LENGTH: 5.0 cm in length, closed. HEART RATE: Not obtained. OTHER: None. US/US OB cervical length IMPRESSION: 1. Posterior placenta which is no longer low-lying. Electronically authenticated by: JAZMÍN MURPHY Date: 01/14/2024 15:30
--- NOTE | 2024-01-14 14:30 | US_ITS ---
[address] [id number] Patient Name: ETHAN MADRIGAL MRN: [id number] date: 1995 Sex: F Assigned Patient Location: [facility] Current Patient Location: [facility] Accession/Order Number: [id number] Exam Date: 01/14/2024 14:32 Report Date: 01/14/2024 15:30 At the request of: ASHOK AGEE Procedure: US OB placenta EXAMINATION: US OB placenta, US OB cervical length HISTORY: LOW LYING PLACENTA COMPARISON: [Ultrasound OB anatomy FINDINGS: PLACENTA: Posterior, grade 0, with lower margin 3.5 cm from os. CERVIX LENGTH: 5.0 cm in length, closed. HEART RATE: Not obtained. OTHER: None. US/US OB placenta IMPRESSION: 1. Posterior placenta which is no longer low-lying. Electronically authenticated by: JAZMÍN MURPHY Date: 01/14/2024 15:30
== END 2024-01-14 15:24 | disposition home or self-care (01) ==
LOC: NOMS 15:23
PROVIDERS: Visit Provider Obstetrics & Gynecology
DX: O44.40 Low lying placenta NOS or without hemorrhage, unspecified trimester (principal)
CPT/HCPCS: 76815; 76817

== ENCOUNTER 2024-02-11 15:17 | Outpatient (OUT) | payer BC, SELFPAY ==
--- OUTSIDE RECORDS SUMMARY | 2024-02-11 15:26 | XMS_ITS | CCD ---
Author Organization [facility] Care Team Providers Care Cover Creaser Name Role Phone OMAR, DR FELIZ Attending [...] Admitting Unavailable KARASIK, DR FELIZ Attending Unavailable WEST, DR MARIELLA Ramirez Consulting Unavailable ANUEL, DR PULIDO Consulting Unavailable ANUEL, DR PULIDO Attending Unavailable ANUEL, DR PULIDO Admitting Unavailable ANUEL, DR PULIDO Attending Unavailable ANUEL, DR PULIDO Admitting Unavailable Unavailable Primary Care Provider Unavailabl e ASHOK BOSE Attending Unavailable LLUVIAJANINA MCALLISTER Attending Unavailable ANUEL, ASHOK Attending Unavailable ANUEL, ASHOK Attending Unavailable Medications Current Medications Medication Drug Class(es) Dates Sig (Normalized) Sig (Original) docusate sodium 100 mg oral capsule (2 sources) Start: 01-02-2024 End: 04-01-2024 take 1 capsule by mouth twice daily as needed for constipation docusate sodium (Colace) 100 MG capsule Indications: Constipation during in second trimester Take 1 capsule (100 mg) by mouth 2 (two) times a day as needed for constipation 60 capsule 2 01/02/2024 04/01/2024 Active magnesium oxide 400 mg oral tablet (2 sources) Start: 01-02-2024 End: 04-01-2024 take 1 tablet by mouth once in the morning magnesium oxide (Mag-Ox) 400 MG tablet Indications: Constipation during in second trimester Take 1 tablet (400 mg) by mouth in the morning. 30 tablet 2 01/02/2024 04/01/2024 Active sertraline 100 mg oral tablet (2 sources) Serotonin Reuptake Inhibitor Start: 10-31-2023 End: 02-28-2024 take 1 tablet by mouth once daily sertraline (Zoloft) 100 MG tablet Indications: Depression with anxiety Take 1 tablet (100 mg) by mouth 1 (one) time each day at the same time 30 tablet 3 10/31/2023 02/28/2024 Active Problems Active Problems Problem Classification Problem Date Documented Da te Episodic/Chronic Other complications of (2 sources) Diseases of the digestive system complicating , second trimester; Translations: [Other current conditions classifiable elsewhere of mother, antepartum condition or complication] 01-02-2024 Episodic Other and delivery including normal (11 sources) Encounter for care and examination of [...] Results Test Name Value Interpretation Reference Range Facility Urinalysis macro (dipstick) panel (U)on 01-02-2024 Bilirubin, UA Negative Negative - 4(70) +++ mg/dL [facility] Blood, UA Negative Negative - 50 Nathan/mcL [facility] Clarity, UA Clear [facility] re Color, UA Yellow [facility] Glucose, UA Negative Negative - 2000(110) ++++ mg/dL [facility] Interpretation and review of laboratory results Abnormal [facility] Ketones, UA Negative Negative - 160(16) ++++ mg/dL [facility] Leukocytes, UA Negative Negative - 500+++ Isha/mcL [facility] Nitrite, UA Negative Negative - Positive [facility] pH, UA 7.0 5 - 9 [facility] Protein, UA Positive Negative - 1999(20) ++++ mg/dL [facility] Spec Grav, UA 1.020 1 - 1.03 [facility] care Urobilinogen, UA 0.2 0.2 - 12 mg/dL [facility] CBC W MANUAL DIFFon 12-26-19 ATYPICAL LYMPH # Normal [facility] Comment on above: Performed By: #### C BCKAM #### [facility] [address] [place] [address] Dr. Amy Carrion ATYPICAL LYMPH % Normal [facility] Comment on above: Performed By: #### C NOMAN #### [facility] [address] [place] [address] Dr. Amy Carrion BAND # 0.4 103/ul Critically high 0.0-0.3 [facility] Comment on above: Performed By: #### C NOMAN #### [facility] [address] [place] [address] Dr. Amy Carrion BAND % 3 % Normal 0-5 [facility] Comment on above: Performed By: #### C NOMAN #### [facility] [address] [place] [address] Dr. Amy Carrion BASOM # 0.00 103/ul Normal 0.00-0.10 [facility] Comment on above: Performed By: #### C NOMAN #### [facility] [address] [place] [address] Dr. Amy Carrion BASOM % 0.0 % Critically low 0.2-2.0 [facility] Comment on above: Performed By: #### C NOMAN #### [facility] [address] [place] [address] Dr. Amy Carrion BLAST # Normal [facility] Comment on above: Performed By: #### C NOMAN #### [facility] [address] [place] [address] Dr. Amy Carrion BLAST % Normal [facility] Comment on above: Performed By: #### C NOMAN #### [facility] [address] [place] [address] Dr. Amy Carrion CORRECTED WBC Normal 4.0-11.0 [facility] Comment on above: Performed By: #### C NOMAN #### [facility] [address] [place] [address] Dr. Amy Carrion EOS # 0.00 103/ul Normal 0.00-0.70 [facility] Comment on above: Performed By: #### C NOMAN #### [facility] [address] [address] [address] Amy Carrion EOS% 0.0 % Critically low 0.9-7.0 [facility] Comment on above: Performed By: #### C NOMAN #### [facility] [address] [address] [address] Amy Carrion HCT 24.9 % Critically low 36.0-48.0 [facility] Comment on above: Performed By: #### C NOMAN #### [facility] [address] [place] [address] Dr. Amy Carrion HGB 8.0 g/dl Critically low 12.0-16.0 [facility] Comment on above: Performed By: #### C NOMAN #### [facility] [address] [place] [address] Dr. Amy Carrion LYMPHM # 3.06 103/ul Normal 1.20-3.80 [facility] Comment on above: Performed By: #### C NOMAN #### [facility] [address] [place] [address] Dr. Amy Carrion LYMPHM% 22.0 % Normal 20.5-60.0 [facility] Comment on above: Performed By: #### C NOMAN #### [facility] [address] [place] [address] Dr. Amy Carrion MCH 30.8 pg Normal 26.7-34.0 [facility] Comment on above: Performed By: #### C NOMAN #### [facility] [address] [address] [address] Amy Carrion MCHC 32.1 g/dl Normal 29.9-35.2 [facility] Comment on above: Performed By: #### C NOMAN #### [facility] [address] [place] [address] Dr. Amy Carrion MCV 95.8 fL Normal 81.0-99.0 [facility] Comment on above: Performed By: #### C NOMAN #### [facility] [address] [place] [address] Dr. Amy Carrion METAMYELOCYTE # Normal [facility] Comment on above: Performed By: #### C NOMAN #### [facility] [address] [address] [address] Amy Carrion METAMYELOCYTE % Normal [facility] Comment on above: Performed By: #### C NOMAN #### [facility] [address] [address] [address] Amy Carrion MONOM# 1.25 103/ul Critically high 0.30-0.80 [facility] Comment on above: Performed By: #### C NOMAN #### [facility] [address] [place] [address] Dr. Amy Carrion MONOM% 9.0 % Normal 1.7-12.0 [facility] Comment on above: Performed By: #### C NOMAN #### [facility] [address] [place] [address] Dr. Amy Carrion MPV 11.0 fL Normal 9.5-13.5 [facility] Comment on above: Performed By: #### C NOMAN #### [facility] [address] [place] [address] Dr. Amy Carrion MYELOCYTE # Normal [facility] Comment on above: Performed By: #### C NOMAN #### [facility] [address] [place] [address] Dr. Amy Carrion MYELOCYTE % Normal [facility] Comment on above: Performed By: #### C NOMAN #### [facility] [address] [place] [address] Dr. Amy Carrion NRBC Normal [facility] Comment on above: Performed By: #### C NOMAN #### [facility] [address] [address] [address] Amy Carrion PLT 170 103/ul Normal 150-450 [facility] Comment on above: Performed By: #### C NOMAN #### [facility] [address] [place] [address] Dr. Amy Carrion RBC 2.60 106/ul Critically low 4.20-5.40 [facility] Comment on above: Performed By: #### C BCMAN #### [facility] [address] [place] [address] Dr. Amy Carrion RDW 13.1 % Normal 11.0-15.0 [facility] Comment on above: Performed By: #### C BCMAN #### [facility] [address] [place] [address] Dr. Amy Carrion SEG # 9.17 103/ul Critically high 1.40-6.50 [facility] Comment on above: Performed By: #### C BCMAN #### [facility] [address] [place] [address] Dr. Amy Carrion SEG % 66.0 % Normal 43.0-75.0 [facility] Comment on above: Performed By: #### C BCMAN #### [facility] [address] [place] [address] Dr. Amy Carrion WBC 13.9 103/ul Critically high 4.0-11.0 [facility] Comment on above: Performed By: #### C BCMAN #### [facility] [address] [place] [address] Dr. Amy Carrion CBC AUTO DIFFon 12-25-2021 BASO # 0.0 103/ul Normal 0.0-0.1 [facility] Comment on above: Performed By: #### C BC #### [facility] [address] [place] [address] Dr. Amy Carrion Basophils/100 WBC (Bld) 0.1 % Critically low 0.2-2.0 [facility] Comment on above: Performed By: #### C BC #### [facility] [address] [place] [address] Dr. Amy Carrion EO # 0.0 103/ul Normal 0.0-0.7 [facility] Comment on above: Performed By: #### C BC #### [facility] [address] [place] [address] Dr. Amy Carrion Eosinophils/100 WBC (Bld) 0.0 % Critically low 0.9-7.0 [facility] Comment on above: Performed By: #### C BC #### [facility] [address] [address] [address] Amy Carrion Erythrocyte distribution width (RBC) [Ratio] 13.0 % Normal 11.0-15.0 [facility] Comment on above: Performed By: #### C BC #### [facility] [address] [address] [address] Amy Carrion Hematocrit (Bld) [Volume fraction] 25.2 % Critically low 36.0-48.0 [facility] Comment on above: Performed By: #### C BC #### [facility] [address] [place] [address] Dr. Amy Carrion Hemoglobin (Bld) [Mass/Vol] 8.2 g/dL Critically low 12.0-16.0 [facility] Comment on above: Result Comment: Post Performed By: #### C BC #### [facility] [address] [place] [address] Dr. Amy Carrion IG # 0.27 10e3/ul Critically high 0.00-0.03 [facility] Comment on above: Performed By: #### C BC #### [facility] [address] [place] [address] Dr. Amy Carrion IG % 1.3 % Critically high 0.0-0.5 [facility] Comment on above: Performed By: #### C BC #### [facility] [address] [place] [address] Dr. Amy Carrion LYMPH # 2.3 103/ul Normal 1.2-3.8 [facility] Comment on above: Performed By: #### C BC #### [facility] [address] [place] [address] Dr. Amy Carrion Lymphocytes/100 WBC (Bld) 10.8 % Critically low 20.5-60.0 [facility] Comment on above: Performed By: #### C BC #### [facility] [address] [place] [address] Dr. Amy Carrion MANUAL DIFF REQ NO Normal [facility] Comment on above: Performed By: #### C BC #### [facility] [address] [address] [address] Amy Carrion MCH (RBC) [Entitic mass] 30.6 pg Normal 26.7-34.0 [facility] Comment on above: Performed By: #### C BC #### [facility] [address] [place] [address] Dr. Amy Carrion MCHC (RBC) [Mass/Vol] 32.5 g/dL Normal 29.9-35.2 [facility] Comment on above: Performed By: #### C BC #### [facility] [address] [place] [address] Dr. Amy Carrion MCV (RBC) [Entitic vol] 94.0 fL Normal 81.0-99.0 [facility] Comment on above: Performed By: #### C BC #### [facility] [address] [place] [address] Dr. Amy Carrion MONO # 1.8 103/ul Critically high 0.3-0.8 [facility] Comment on above: Performed By: #### C BC #### [facility] [address] [place] [address] Dr. Amy Carrion Monocytes/100 WBC (Bld) 8.4 % Normal 1.7-12.0 [facility] Comment on above: Performed By: #### C BC #### [facility] [address] [place] [address] Dr. Amy Carrion NEUT # 16.7 103/ul Critically high 1.4-6.5 [facility] Comment on above: Performed By: #### C BC #### [facility] [address] [place] [address] Dr. Amy Carrion Neutrophils/100 WBC (Bld) 79.4 % Critically high 43.0-75.0 [facility] Comment on above: Performed By: #### C BC #### [facility] [address] [place] [address] Dr. Amy Carrion Platelet mean volume (Bld) [Entitic vol] 10.9 fL Normal 9.5-13.5 [facility] Comment on above: Performed By: #### C BC #### [facility] [address] [place], [place] [address] Dr. Amy Carrion PLT 167 103/ul Normal 150-450 [facility] Comment on above: Performed By: #### C BC #### [facility] [address] [place], [place] [address] Dr. Amy Carrion RBC 2.68 106/ul Critically low 4.20-5.40 [facility] Comment on above: Performed By: #### C BC #### [facility] [id number] Amy Carrion WBC 21.0 103/ul Critically high 4.0-11.0 [facility] Comment on above: Performed By: #### C BC #### [facility] [address] [place] [address] Dr. Amy Carrion ASYMPTOMATIC COVID-19 ANTIGE Non 12-24-2021 EUA Statement SEE BELOW Normal [facility] Comment on above: Result Comment: This [...] sooner. Performed By: #### C VDAGA #### [facility] [address] [place] [address] Dr. Amy Carrion SARS-CoV-2 (COVID-19) RNA KERA+probe Ql (Unsp spec) Negative Normal NEGATIVE [facility] Comment on above: Result Comment: Nega tive results are presumptive. They do not preclude infection and should not be used as the sole basis for treatment decisions. Additional confirmatory testing by a molecular method should be considered. Performed By: #### C VDAGA #### [facility] [address] [place] [address] Dr. Amy Carrion CBC W MANUAL DIFFon 12-24-19 22 ATYPICAL LYMPH # Normal [facility] Comment on above: Performed By: #### C NOMAN #### [facility] [address] [place] [address] Dr. Amy Carrion ATYPICAL LYMPH % Normal [facility] Comment on above: Performed By: #### C NICOLASMAN #### [facility] [address] [place] [address] Dr. Amy Carrion BAND # 0.3 103/ul Normal 0.0-0.3 [facility] Comment on above: Performed By: #### C NOMAN #### [facility] [address] [place] [address] Dr. Amy Carrion BAND % 2 % Normal 0-5 [facility] Comment on above: Performed By: #### C NOMAN #### [facility] [address] [place] [address] Dr. Amy Carrion BASOM # 0.00 103/ul Normal 0.00-0.10 [facility] Comment on above: Performed By: #### C NOMAN #### [facility] [address] [place] [address] Dr. Amy Carrion BASOM % 0.0 % Critically low 0.2-2.0 [facility] Comment on above: Performed By: #### C NOMAN #### [facility] [address] [place] [address] Dr. Amy Carrion BLAST # Normal [facility] Comment on above: Performed By: #### C NOMAN #### [facility] [address] [place] [address] Dr. Amy Carrion BLAST % Normal [facility] Comment on above: Performed By: #### C NOMAN #### [facility] [address] [place] [address] Dr. Amy Carrion CORRECTED WBC Normal 4.0-11.0 [facility] Comment on above: Performed By: #### C NOMAN #### [facility] [address] [address] [address] Amy Carrion EOS # 0.00 103/ul Normal 0.00-0.70 [facility] Comment on above: Performed By: #### C NOMAN #### [facility] [address] [address] [address] Amy Carrion EOS% 0.0 % Critically low 0.9-7.0 [facility] Comment on above: Performed By: #### C NOMAN #### [facility] [address] [place] [address] Dr. Amy Carrion HCT 36.0 % Normal 36.0-48.0 [facility] Comment on above: Performed By: #### C NOMAN #### [facility] [address] [place] [address] Dr. Amy Carrion HGB 12.2 g/dl Normal 12.0-16.0 [facility] Comment on above: Performed By: #### C NOMAN #### [facility] [address] [place] [address] Dr. Amy Carrion LYMPHM # 1.56 103/ul Normal 1.20-3.80 [facility] Comment on above: Performed By: #### C NOMAN #### [facility] [address] [place] [address] Dr. Amy Carrion LYMPHM% 9.0 % Critically low 20.5-60.0 [facility] Comment on above: Performed By: #### C NOMAN #### [facility] [address] [place] [address] Dr. Amy Carrion MCH 30.8 pg Normal 26.7-34.0 [facility] Comment on above: Performed By: #### C NOMAN #### [facility] [address] [place] [address] Dr. Amy Carrion MCHC 33.9 g/dl Normal 29.9-35.2 [facility] Comment on above: Performed By: #### C NOMAN #### [facility] [address] [place] [address] Dr. Amy Carrion MCV 90.9 fL Normal 81.0-99.0 [facility] Comment on above: Performed By: #### C BCMAN #### [facility] [address] [place] [address] Dr. Amy Carrion METAMYELOCYTE # Normal [facility] Comment on above: Performed By: #### C NOMNA #### [facility] [address] [place] [address] Dr. Amy Carrion METAMYELOCYTE % Normal [facility] Comment on above: Performed By: #### C NOMAN #### [facility] [address] [place] [address] Dr. Amy Carrion MONOM# 0.86 103/ul Critically high 0.30-0.80 [facility] Comment on above: Performed By: #### C NOMAN #### [facility] [address] [place] [address] Dr. Amy Carrion MONOM% 5.0 % Normal 1.7-12.0 [facility] Comment on above: Performed By: #### C NOMAN #### [facility] [address] [place] [address] Dr. Amy Carrion MPV 11.1 fL Normal 9.5-13.5 [facility] Comment on above: Performed By: #### C NOMAN #### [facility] [address] [place] [address] Dr. Amy Carrion MYELOCYTE # Normal [facility] Comment on above: Performed By: #### C NOMAN #### [facility] [address] [place] [address] Dr. Amy Carrion MYELOCYTE % Normal [facility] Comment on above: Performed By: #### C NOMAN #### [facility] [address] [place] [address] Dr. Amy Carrion NRBC Normal [facility] Comment on above: Performed By: #### C NOMAN #### [facility] [address] [place] [address] Dr. Amy Carrion PLT 203 103/ul Normal 150-450 [facility] Comment on above: Performed By: #### C NOMAN #### [facility] [address] [address] [address] Amy Carrion RBC 3.96 106/ul Critically low 4.20-5.40 [facility] Comment on above: Performed By: #### C NOMAN #### [facility] [address] [address] [address] Amy Carrion RDW 12.7 % Normal 11.0-15.0 [facility] Comment on above: Performed By: #### C NOMAN #### [facility] [address] [address] [address] Amy Carrion SEG # 14.53 103/ul Critically high 1.40-6.50 [facility] Comment on above: Performed By: #### C NOMAN #### [facility] [address] [address] [address] Amy Carrion SEG % 84.0 % Critically high 43.0-75.0 [facility] Comment on above: Performed By: #### Luzmaria TINEO #### [facility] [address] [address] [address] Amy Carrion WBC 17.3 103/ul Critically high 4.0-11.0 [facility] Comment on above: Performed By: #### C NOMAN #### [facility] [address] [address] [address] Amy Carrion DRUG SCREEN RAPID (URINE)on 12-24-2021 AMP Negative Normal NEGATIVE [facility] Comment on above: Performed By: #### D RUGRPD #### [facility] [address] [address] [address] Amy Carrion BAR Negative Normal NEGATIVE [facility] Comment on above: Performed By: #### D RUGRPD #### [facility] [address] [address] [address] Amy Carrion BUP Negative Normal NEGATIVE [facility] Comment on above: Performed By: #### D RUGRPD #### [facility] [address] [address] [address] Amy Carrion BZO Negative Normal NEGATIVE [facility] Comment on above: Performed By: #### D RUGRPD #### [facility] [address] [place] [address] Dr. Amy Carrion MARISSA Negative Normal NEGATIVE [facility] Comment on above: Performed By: #### D RUGRPD #### [facility] [address] [place] [address] Dr. Amy Carrion CUT-OFFS SEE BELOW Normal [facility] Comment on above: Result Comment: AMP [...] ng/mL Performed By: #### D RUGRPD #### [facility] [address] [place] [address] Dr. Amy Carrion DRUG CUT HEADER DRUG CLASS TEST SYSTEM CUT-OFF CONCENTRATIONS ARE FOLLOWS: Normal [facility] Comment on above: Performed By: #### D RUGRPD #### [facility] [address] [place] [address] Dr. Amy Carrion mAMP Negative Normal NEGATIVE [facility] Comment on above: Performed By: #### D RUGRPD #### [facility] [address] [place] [address] Dr. Amy Carrion MTD Negative Normal NEGATIVE [facility] Comment on above: Performed By: #### D RUGRPD #### [facility] [address] [place] [address] Dr. Amy Carrion OPI Negative Normal NEGATIVE [facility] Comment on above: Performed By: #### D RUGRPD #### [facility] [address] [place] [address] Dr. Amy Carrion OXY Negative Normal NEGATIVE [facility] Comment on above: Performed By: #### D RUGRPD #### [facility] [address] [place] [address] Dr. Amy Carrion PCP Negative Normal NEGATIVE [facility] Comment on above: Performed By: #### D RUGRPD #### [facility] [address] [place] [address] Dr. Amy Carrion PPX Negative Normal NEGATIVE [facility] Comment on above: Performed By: #### D RUGRPD #### [facility] [address] [place] [address] Dr. Amy Carrion TCA Negative Normal NEGATIVE [facility] Comment on above: Performed By: #### D RUGRPD #### [facility] [address] [place] [address] Dr. Amy Carrion THC Negative Normal NEGATIVE [facility] Comment on above: Performed By: #### D RUGRPD #### [facility] [address] [place] [address] Dr. Amy Carrion TYPE AND SCREENon 12-24-2021 TYPE AND SCREEN Negative Normal [facility] Comment on above: Performed By: #### G TT3P #### [facility] [facility] [address] [place] [address] Dr. Amy Carrion US PREG BIOPHY W [...] by: MARIELLA WHITEHEAD Date: 2021-12-22 10:47 Normal [facility] US PREG GROWTHon 12-22-2021 US PREG [...] by: MARIELLA WHITEHEAD Date: 2021-12-22 10:[address] [facility] GROUP B STREP CULTUREon S. agalactiae Ag Ql (Unsp spec) Culture Observations: Faxed to Dr. Bose/Dr. Mills's office 11/27/21. Isolate 1 Streptococcus agalactiae Heavy [...] S F Tetracycline >=[address] [facility] Comment on above: Performed By: #### G TT3P #### [facility] [address] [place] [address] Dr. Amy Carrion GTT 3 HR PREGon 11-07-2021 Glucose [Mass/Vol] 91 mg/dL Normal 74-106 [facility] Comment on above: Performed By: #### G TT3P #### [facility] [address] [place] [address] Dr. Amy Carrion Glucose [Mass/Vol] 172 mg/dL Normal [facility] Comment on above: Performed By: #### G TT3P #### [facility] [address] [place] [address] Dr. Amy Carrion Glucose [Mass/Vol] 134 mg/dL Normal [facility] Comment on above: Performed By: #### G TT3P #### [facility] [address] [place] [address] Dr. Amy Carrion Glucose [Mass/Vol] 117 mg/dL Normal [facility] Comment on above: Performed By: #### G TT3P #### [facility] [address] [place] [address] Dr. Amy Carrion HEPATITIS C ANTIBODYon 10-27 Hep C Virus Ab 0.2 s/co ratio Normal 0.0-0.9 [facility] Comment on above: Result Comment: Nega tive: < 0.8 Indeterminate: 0.8 - 0.9 Positive: > 0.9 . The CDC recommends that a positive HCV antibody result be followed up with a HCV Nucleic Acid Amplification test ([id number]). Performed By: #### G TT3P #### [facility] [address] [place] [address] Dr. Amy Carrion HIV 1 AND 2 WITH REFLEXon HIV Screen 4th Generation wRfx Non-Reactive Normal Non Reactive [facility] Comment on above: Performed By: #### H IV12 #### [facility] [address] [place] [address] Dr. Amy Carrion GLUCOSE - 1HRon 10-26-2021 Glucose [Mass/Vol] 142 mg/dL Critically high 74-106 [facility] Comment on above: Performed By: #### G LU1HR #### [facility] [address] [place] [address] Dr. Amy Carrion HEMOGRAM AND PLATELon 2020 Hematocrit (Bld) [Volume fraction] 32.8 % Critically low 36.0-48.0 [facility] Comment on above: Performed By: #### H H #### [facility] [address] [place] [address] Dr. Amy Carrion Hemoglobin (Bld) [Mass/Vol] 10.7 g/dL Critically low 12.0-16.0 [facility] Comment on above: Performed By: #### H H #### [facility] [address] [place] [address] Dr. Amy Carrion MCH (RBC) [Entitic mass] 30.6 pg Normal 26.7-34.0 [facility] Comment on above: Performed By: #### H H #### [facility] [address] [place] [address] Dr. Amy Carrion MCHC (RBC) [Mass/Vol] 32.6 g/dL Normal 29.9-35.2 [facility] Comment on above: Performed By: #### H H #### [facility] [address] [place] [address] Dr. Amy Carrion MCV (RBC) [Entitic vol] 93.7 fL Normal 81.0-99.0 [facility] Comment on above: Performed By: #### H H #### [facility] [address] [place] [address] Dr. Amy Carrion PLT 197 103/ul Normal 150-450 [facility] Comment on above: Performed By: #### H H #### [facility] [address] [place] [address] Dr. Amy Carrion RBC 3.50 106/ul Critically low 4.20-5.40 [facility] Comment on above: Performed By: #### H H #### [facility] [address] [place] [address] Dr. Amy Carrion WBC 12.4 103/ul Critically high 4.0-11.0 [facility] Comment on above: Performed By: #### H H #### [facility] [address] [place] [address] Dr. Amy Carrion Vital Signs Date Time Vital Sign Value Performing Clinician Faci lity 01-02-2024 11:26-0500 Body mass index (BMI) [Ratio] 33.62 kg/m2 Janina DAY Work Phone: [facility] 01-02-2024 11:26-0500 Body weight 83.37 kg Janina DAY Work Phone: [facility] 01-02-2024 11:26-0500 Diastolic blood pressure 74 mm[Hg] Janina DAY Work Phone: [facility] 01-02-2024 11:26-0500 Systolic blood pressure 122 mm[Hg] Janina DAY Work Phone: [facility] Healthcare Encounters Encounter Date Encounter Type Care Provider Facility Start: 02-03-2024 End: 02-03-2024 ambulatory ASHOK BOSE Not Available Start: 01-02-2024 End: 01-02-2024 ambulatory JANINA TEIXEIRA Not Available Start: 01-02-2024 End: 01-02-2024 flow sheet Janina DAY Work Phone: [facility] Comment on above: Second trimester pre gnancy; Constipation during in second trimester Start: 12-05-2023 End: 12-05-2023 ambulatory ASHOK BOSE Not Available Start: 10-31-2023 End: 10-31-2023 ambulatory ASHOK BOSE Not Available Start: 07-27-2022 End: 07-27-[address] ASHOK BOSE Facility:[facility] Start: 01-02-2022 End: 01-18-[address] ASHOK BOSE Facility:[facility] Start: 01-01-2022 End: 01-01-[address] TRAY MILLS Facility:[facility] Start: 12-24-2021 End: 12-26-2021 Evaluation and management of inpatient DR TRAY MILLS Facility:[facility] Start: 12-22-2021 End: 12-22-[address] TRAY MILLS Facility:[facility] Start: 11-22-2021 End: 11-22-[address] ASHOK BOSE Facility:[facility] Start: 11-07-2021 End: 11-08-[address] ASHOK BOSE Facility:[facility] Start: 10-26-2021 End: 10-27-[address] ASHOK BOSE Facility:[facility] Procedures Date Procedure Procedure Detail Performing Clinician Start: 01-02-2024 Urnls dip stick/tabl et rgnt non-auto w/o micrscp Janina DAY Work Phone: Start: 12-24-2021 Extraction of Produc ts of Conception, Low Cervical, Open Approach DR TRAY MILLS Plan of Treatment Date Care Activity Detail Author Start: 06-30-2024 End: 06-30-2024 Patient encounter procedure 06/30/2024 2:00 PM EDT Office Visit [facility] [address] [place] [address] Ashok Bose, DO [address] [place], [place] [id number] [facility] Start: 02-03-2024 End: 02-03-2024 Patient encounter procedure 02/03/2024 1:50 PM EDT Routine [facility] [address] [place] [address] Ashok Bose, DO [address], [facility] Payers Date Payer Category Payer Unknown BCBS BCBS xxxxxx [id number] 2023-Present [phone] [address] [place] [address] [id number] 2023 Unknown [id number] 1997 Unknown [id number] 1997 Unknown [id number] 1997 Unknown [id number] [id number] 1997 Unknown [id number] [id number] 1997 Unknown [id number] [id number] 1997 Unknown [id number] [id number] 1997 Unknown [id number] [id number] 1997 Unknown [id number] [id number] 1997 Unknown [id number] [id number] 1997 Unknown [id number] [id number] 1997 Unknown [id number] 1957 Self-pay 1957 Unknown [id number] Social History Date Type Detail Facility Tobacco smoking stat [facility] Tobacco smoking consumption unknown [facility] Start: 08-16-2023 [facility] Start: 1997 Sex Assigned At Not on file [facility] Gender identity Not on file [facility] History of Present illness Narrative 01-02-2024 SHAY Flores - 01/02/2024 11:20 AM EST Note Date & Type Note Facility 01-02-2024 History of Presen t illness Narrative Reason for Appointment: Patient ID: Ethan Madrigal is a 28 y.o. female who presents for Routine Visit Patient presents today for Return OB appointment. Current Medications: has a current medication list which includes the following prescription(s): sertraline. Medical History: Active Ambulatory Problems Diagnosis Date Noted No Active Ambulatory Problems Resolved Ambulatory Problems Diagnosis Date Noted No Resolved Ambulatory Problems Past Medical History: Diagnosis Date Anxiety Frequent headaches Family History Problem Relation Name Age of Onset Hypertension Mother Diabetes Father Cancer Maternal Grandmother Social History Tobacco Use Smoking status: Not on file Smokeless tobacco: Not on file Substance Use Topics Alcohol use: Not on file Drug use: Not on file Past Surgical History: Procedure Laterality Date SECTION, LOW TRANSVERSE 12/24/2021 PAP SMEAR 03/01/2021 negative No Known Allergies Review of Systems: Review of Systems Constitutional: Negative. HENT: Negative. Eyes: Negative. Respiratory: Negative. Cardiovascular: Negative. Gastrointestinal: Negative. Genitourinary: Negative. Musculoskeletal: Negative. Skin: Negative. Neurological: Negative. All other systems reviewed and are negative. Hematological: Negative. Endocrine: Negative. Allergic/Immunologic: Negative. Objective Physical Exam Constitutional: Appearance: Normal appearance. She is normal weight. HENT: Head: Normocephalic. Cardiovascular: Rate and Rhythm: Normal rate. Pulses: Normal pulses. Pulmonary: Effort: Pulmonary effort is normal. Breath sounds: Normal breath sounds. Abdominal: Palpations: Abdomen is soft. Musculoskeletal: General: Normal range of motion. Neurological: General: No focal deficit present. Mental Status: She is alert and oriented to person, place, and time. Psychiatric: Mood and Affect: Mood normal. Behavior: Behavior normal. Thought Content: Thought content normal. Judgment: Judgment normal. Vitals and nursing note reviewed. Vitals: Estimated body mass index is 33.62 kg/m as calculated from the following: Height as of 06/25/23: 5' 2 . Weight as of this encounter: 183 lb 12.8 oz. BP: 122/74 Patient's last menstrual period was 08/02/2023. Assessment/Plan Encounter Diagnosis Name Primary? Second trimester Patient presents today for a routine obstetrics appointment. Patient is currently 21w6d with a Estimated Date of Delivery: 05/08/24. Patient presents today for a routine obstetrics appointment. Patient is currently 21w6d . Patient states she is doing well but has complaints of being tired due to current . Patient has verbalizes frequent movement. labor precautions was discussed/given Follow Up: Patient is to return to office in 4 weeks for routine OB appointment. Documented by SHAY Flores on behalf of: SHAY Flores documented in this encounter [facility] Evaluation note Note Date & Type Note Facility Evaluation note Diagnosis Second trimester state, incidental Constipation during in second trimester documented in this encounter [facility] Summary Purpose Family History No Family History Records FoundNo Family History Records Found Advance Directives No Advanced Directives Records FoundNo Advanced Directives Records Found Additional Source Comments INFORMATION SOURCE (unrecogn ized section and content) DATE CREATED AUTHOR 07/27/2022 [facility] DATE CREATED AUTHOR AUTHOR'S ORGANIZ ATION 02/04/2024 [facility] EPIC Reason for Visit (unrecogniz ed section and content) Reason Comments Routine Visit FOR RECORDS PERTAINING TO PATIENTS WHO ARE [...] BE BASED ON THE PRIMARY CLINICAL RECORDS. [facility] [employer] provides no warranty or guarantee of the accuracy or completeness of information in this document.
[2024-02-11 16:52] LABS: Basophils Absolute Auto 0.1 10^3/uL (0.0-0.1); Basophils Percent Auto 0.4 % (0.2-2.0); Eosinophils Absolute Auto 0.1 10^3/uL (0.0-0.7); Eosinophils Percent Auto 0.6 % (0.9-7.0); Hematocrit 33.2 % (36.0-48.0); Hemoglobin 10.9 g/dL (12.0-16.0); Immature Granulocytes Pct Auto 1.5 % (0.0-0.5); Lymphocytes Absolute Auto 2.3 10^3/uL (1.2-3.8); Lymphocytes Percent Auto 17.2 % (20.5-60.0); Mean Corpuscular HGB Conc 32.8 g/dL (29.9-35.2); Mean Corpuscular Volume 94.3 fL (81.0-99.0); Mean Platelet Volume 9.6 fL (9.5-13.5); Monocytes Absolute Auto 0.7 10^3/uL (0.3-0.8); Monocytes Percent Auto 5.2 % (1.7-12.0); Neutrophils Percent Auto 75.1 % (43.0-75.0); Platelet Count 218 10^3/uL (150-450); Red Blood Count 3.52 10^6/uL (4.20-5.40); Red Cell Distribution Width 12.4 % (11.0-15.0); White Blood Count 13.3 10^3/uL (4.0-11.0)
[2024-02-11 17:01] LABS: Glucose 1 Hour 140 mg/dL (<130)
== END 2024-02-11 15:18 | disposition home or self-care (01) ==
LOC: LAB 15:17
PROVIDERS: Visit Provider Obstetrics & Gynecology
DX: Z13.1 Encounter for screening for diabetes mellitus (principal)
CPT/HCPCS: 36415; 82950; 85025

== ENCOUNTER 2024-02-25 13:41 | Outpatient (OUT) | payer BC, SELFPAY ==
--- OUTSIDE RECORDS SUMMARY | 2024-02-25 13:54 | XMS_ITS | CCD ---
Author Organization [facility] Care Team Providers Care Flamer After Lasting Name Role Phone OMAR, DR FELIZ Attending [...] PULIDO Admitting Unavailable Unavailable Primary Care Provider Unavailtawnya e ASHOK BOSE Attending Unavailable JANINA TEIXEIRA Attending Unavailable ANUEL, ASHOK Attending Unavailable ANUELASHOK HERNANDEZ Attending Unavailable ANUELASHOK Attending Unavailable Medications Current Medications Medication Drug [...] UA Negative Negative - 4(70) +++ mg/dL [facility] Blood, UA Negative Negative - 50 Nathan/mcL [facility] Clarity, UA [facility] Color, UA Yellow [facility] e Glucose, UA Negative Negative - 1999(110) ++++ mg/dL [facility] Interpretation and review of laboratory results Abnormal [facility] Ketones, UA Negative Negative - 160(16) ++++ mg/dL [facility] Leukocytes, UA Negative Negative - 500+++ Isha/mcL [facility] Nitrite, UA Negative Negative - Positive [facility] pH, UA 7.0 5 - [facility], [facility] Positive Negative - 1999(20) ++++ mg/dL [facility] Spec Grav, UA 1.020 1 - 1.03 [facility] care Urobilinogen, UA 0.2 0.2 - 12 mg/dL [facility] CBC W MANUAL DIFFon 12-26-19 22 ATYPICAL LYMPH # Normal [facility] Comment on above: Performed By: #### C NOMAN #### [facility] [address] [place] [address] Dr. Amy Carrion ATYPICAL LYMPH % Normal [facility] Comment on above: Performed By: #### C NOMAN #### [facility] [address] [place] [address] Dr. Amy Carrion BAND # 0.4 103/ul Critically high 0.0-0.3 [facility] Comment on above: Performed By: #### C NOMAN #### [facility] [address] [place] [address] Dr. Amy Carrion BAND % 3 % Normal 0-5 [facility] Comment on above: Performed By: #### C NOMAN #### [facility] [address] [place] [address] Dr. Amy Carrion BASOM # 0.00 103/ul Normal 0.00-0.10 [facility] Comment on above: Performed By: #### C NOMAN #### [facility] [address] [place] [address] Dr. Amy Carrion BASOM % 0.0 % Critically low 0.2-2.0 [facility] Comment on above: Performed By: #### C NOMAN #### [facility] [address] [place] [address] Dr. Amy Carrion BLAST # Normal [facility] Comment on above: Performed By: #### C NOMAN #### [facility] [address] [place] [address] Dr. Amy Carrion BLAST % Normal [facility] Comment on above: Performed By: #### C NOMAN #### [facility] [address] [place] [address] Dr. Amy Carrion CORRECTED WBC Normal 4.0-11.0 [facility] Comment on above: Performed By: #### C NOMAN #### [facility] [address] [place] [address] Dr. Amy Carrion EOS # 0.00 103/ul Normal 0.00-0.70 [facility] Comment on above: Performed By: #### C NOMAN #### [facility] [address] [address] [address] Amy Carrion EOS% 0.0 % Critically low 0.9-7.0 [facility] Comment on above: Performed By: #### C NOMAN #### [facility] [address] [address] [address] Amy Carrion HCT 24.9 % Critically low 36.0-48.0 [facility] Comment on above: Performed By: #### C NOMAN #### [facility] [address] [address] [address] Amy Carrion HGB 8.0 g/dl Critically low 12.0-16.0 [facility] Comment on above: Performed By: #### C NOMAN #### [facility] [address] [place] [address] Dr. Amy Carrion LYMPHM # 3.06 103/ul Normal 1.20-3.80 [facility] Comment on above: Performed By: #### C NOMAN #### [facility] [address] [address] [address] Amy Carrion LYMPHM% 22.0 % Normal 20.5-60.0 [facility] Comment on above: Performed By: #### C NOMAN #### [facility] [address] [place] [address] Dr. Amy Carrion MCH 30.8 pg Normal 26.7-34.0 [facility] Comment on above: Performed By: #### C NOMAN #### [facility] [address] [address] [address] Amy Carrion MCHC 32.1 g/dl Normal 29.9-35.2 [facility] Comment on above: Performed By: #### C NOMAN #### [facility] [address] [place] [address] Dr. Amy Carrion MCV 95.8 fL Normal 81.0-99.0 [facility] Comment on above: Performed By: #### C NOMAN #### [facility] [address] [place] [address] Dr. Amy Carrion METAMYELOCYTE # Normal [facility] Comment on above: Performed By: #### C NOMAN #### [facility] [address] [place] [address] Dr. Amy Carrion METAMYELOCYTE % Normal [facility] Comment on above: Performed By: #### C NOMAN #### [facility] [address] [address] [address] Amy Carrion MONOM# 1.25 103/ul Critically high 0.30-0.80 [facility] Comment on above: Performed By: #### C NOMAN #### [facility] [address] [address] [address] Amy Carrion MONOM% 9.0 % Normal 1.7-12.0 [facility] Comment on above: Performed By: #### C NOMAN #### [facility] [address] [place] [address] Dr. Amy Carrion MPV 11.0 fL Normal 9.5-13.5 [facility] Comment on above: Performed By: #### C NOMAN #### [facility] [address] [place] [address] Dr. Amy Carrion MYELOCYTE # Normal [facility] Comment on above: Performed By: #### C NOMAN #### [facility] [address] [place] [address] Dr. Amy Carrion MYELOCYTE % Normal [facility] Comment on above: Performed By: #### C NOMAN #### [facility] [address] [place] [address] Dr. Amy Carrion NRBC Normal [facility] Comment on above: Performed By: #### C NOMAN #### [facility] [address] [address] [address] Amy Carrion PLT 170 103/ul Normal 150-450 [facility] Comment on above: Performed By: #### C NOMAN #### [facility] [address] [place] [address] Dr. Amy Carrion RBC 2.60 106/ul Critically low 4.20-5.40 [facility] Comment on above: Performed By: #### C BCMAN #### [facility] [address] [address] [address] Amy Carrion RDW 13.1 % Normal 11.0-15.0 [facility] Comment on above: Performed By: #### C BCMAN #### [facility] [address] [place] [address] Dr. Amy Carrion SEG # 9.17 103/ul Critically high 1.40-6.50 [facility] Comment on above: Performed By: #### C BCMAN #### [facility] [address] [place] [address] Dr. Amy Carrion SEG % 66.0 % Normal 43.0-75.0 [facility] Comment on above: Performed By: #### C BCMAN #### [facility] [address] [place] [address] Dr. Amy Carrion WBC 13.9 103/ul Critically high 4.0-11.0 [facility] Comment on above: Performed By: #### C NICOLASMAN #### [facility] [address] [place] [address] Dr. Amy Carrion CBC AUTO DIFFon 12-25-2021 BASO # 0.0 103/ul Normal 0.0-0.1 [facility] Comment on above: Performed By: #### C BC #### [facility] [address] [place] [address] Dr. Amy Carrion Basophils/100 WBC (Bld) 0.1 % Critically low 0.2-2.0 [facility] Comment on above: Performed By: #### C BC #### [facility] [address] [place] [address] Dr. Amy Carrion EO # 0.0 103/ul Normal 0.0-0.7 [facility] Comment on above: Performed By: #### C BC #### [facility] [address] [place] [address] Dr. Amy Carrion Eosinophils/100 WBC (Bld) 0.0 % Critically low 0.9-7.0 [facility] Comment on above: Performed By: #### C BC #### [facility] [address] [place] [address] Dr. Amy Carrion Erythrocyte distribution width (RBC) [Ratio] 13.0 % Normal 11.0-15.0 [facility] Comment on above: Performed By: #### C BC #### [facility] [address] [place] [address] Dr. Amy Carrion Hematocrit (Bld) [Volume fraction] 25.2 % Critically low 36.0-48.0 [facility] Comment on above: Performed By: #### C BC #### [facility] [address] [place] [address] Dr. Amy Carrion Hemoglobin (Bld) [Mass/Vol] 8.2 g/dL Critically low 12.0-16.0 [facility] Comment on above: Result Comment: Post Performed By: #### C BC #### [facility] [address] [place] [address] Dr. Amy Carrion IG # 0.27 10e3/ul Critically high 0.00-0.03 [facility] Comment on above: Performed By: #### C BC #### [facility] [address] [place] [address] Dr. Amy Carrion IG % 1.3 % Critically high 0.0-0.5 [facility] Comment on above: Performed By: #### C BC #### [facility] [address] [place] [address] Dr. Amy Carrion LYMPH # 2.3 103/ul Normal 1.2-3.8 [facility] Comment on above: Performed By: #### C BC #### [facility] [address] [place] [address] Dr. Amy Carrion Lymphocytes/100 WBC (Bld) 10.8 % Critically low 20.5-60.0 [facility] Comment on above: Performed By: #### C BC #### [facility] [address] [place] [address] Dr. Amy Carrion MANUAL DIFF REQ NO Normal [facility] Comment on above: Performed By: #### C BC #### [facility] [address] [address] [address] Amy Carrion MCH (RBC) [Entitic mass] 30.6 pg Normal 26.7-34.0 [facility] Comment on above: Performed By: #### C BC #### [facility] [address] [address] [address] Amy Carrion MCHC (RBC) [Mass/Vol] 32.5 g/dL Normal 29.9-35.2 [facility] Comment on above: Performed By: #### C BC #### [facility] [address] [address] [address] Amy Carrion MCV (RBC) [Entitic vol] 94.0 fL Normal 81.0-99.0 [facility] Comment on above: Performed By: #### C BC #### [facility] [address] [place] [address] Dr. Amy Carrion MONO # 1.8 103/ul Critically high 0.3-0.8 [facility] Comment on above: Performed By: #### C BC #### [facility] [address] [place] [address] Dr. Amy Carrion Monocytes/100 WBC (Bld) 8.4 % Normal 1.7-12.0 [facility] Comment on above: Performed By: #### C BC #### [facility] [address] [place] [address] Dr. Amy Carrion NEUT # 16.7 103/ul Critically high 1.4-6.5 [facility] Comment on above: Performed By: #### C BC #### [facility] [address] [place] [address] Dr. Amy Carrion Neutrophils/100 WBC (Bld) 79.4 % Critically high 43.0-75.0 [facility] Comment on above: Performed By: #### C BC #### [facility] [address] [place] [address] Dr. Amy Carrion Platelet mean volume (Bld) [Entitic vol] 10.9 fL Normal 9.5-13.5 [facility] Comment on above: Performed By: #### C BC #### [facility] [address] [place], [place] [address] Dr. Amy Carrion PLT 167 103/ul Normal 150-450 [facility] Comment on above: Performed By: #### C BC #### [facility] [address] [place], [place] [address] Dr. Amy Carrion RBC 2.68 106/ul Critically low 4.20-5.40 [facility] Comment on above: Performed By: #### C BC #### [facility] [address] [place], [place] [address] Dr. Amy Carrion WBC 21.0 103/ul Critically high 4.0-11.0 [facility] Comment on above: Performed By: #### C BC #### [facility] [address] [address] [address] Amy Carrion ASYMPTOMATIC COVID-19 ANTIGE Non 12-24-2021 EUA Statement SEE BELOW Normal [facility] Comment on above: Result Comment: This test [...] sooner. Performed By: #### C VDAGA #### [facility] [address] [address] [address] Amy Carrion SARS-CoV-2 (COVID-19) RNA KERA+probe Ql (Unsp spec) Negative Normal NEGATIVE [facility] Comment on above: Result Comment: Nega tive results are presumptive. They do not preclude infection and should not be used as the sole basis for treatment decisions. Additional confirmatory testing by a molecular method should be considered. Performed By: #### C VDAGA #### [facility] [address] [place] [address] Dr. Amy Carrion CBC W MANUAL DIFFon 12-24-19 22 ATYPICAL LYMPH # Normal [facility] Comment on above: Performed By: #### C BCMAN #### [facility] [address] [place] [address] Dr. Amy Carrion ATYPICAL LYMPH % Normal [facility] Comment on above: Performed By: #### C BCMAN #### [facility] [address] [place] [address] Dr. Amy Carrion BAND # 0.3 103/ul Normal 0.0-0.3 [facility] Comment on above: Performed By: #### C BCMAN #### [facility] [address] [place] [address] Dr. Amy Carrion BAND % 2 % Normal 0-5 [facility] Comment on above: Performed By: #### C NICOLASMAN #### [facility] [address] [place] [address] Dr. Amy Carrion BASOM # 0.00 103/ul Normal 0.00-0.10 [facility] Comment on above: Performed By: #### C BCMAN #### [facility] [address] [place] [address] Dr. Amy Carrion BASOM % 0.0 % Critically low 0.2-2.0 [facility] Comment on above: Performed By: #### C NICOLASMAN #### [facility] [address] [place] [address] Dr. Amy Carrion BLAST # Normal [facility] Comment on above: Performed By: #### C NICOLASMAN #### [facility] [address] [place] [address] Dr. Amy Carrion BLAST % Normal [facility] Comment on above: Performed By: #### C NICOLASMAN #### [facility] [address] [place] [address] Dr. Amy Carrion CORRECTED WBC Normal 4.0-11.0 [facility] Comment on above: Performed By: #### C NOMAN #### [facility] [address] [address] [address] Amy Carrion EOS # 0.00 103/ul Normal 0.00-0.70 [facility] Comment on above: Performed By: #### C NOMAN #### [facility] [address] [address] [address] Amy Carrion EOS% 0.0 % Critically low 0.9-7.0 [facility] Comment on above: Performed By: #### C NOMAN #### [facility] [address] [place] [address] Dr. Amy Carrion HCT 36.0 % Normal 36.0-48.0 [facility] Comment on above: Performed By: #### C NOMAN #### [facility] [address] [place] [address] Dr. Amy Carrion HGB 12.2 g/dl Normal 12.0-16.0 [facility] Comment on above: Performed By: #### C NOMAN #### [facility] [address] [place] [address] Dr. Amy Carrion LYMPHM # 1.56 103/ul Normal 1.20-3.80 [facility] Comment on above: Performed By: #### C NOMAN #### [facility] [address] [place] [address] Dr. Amy Carrion LYMPHM% 9.0 % Critically low 20.5-60.0 [facility] Comment on above: Performed By: #### C NOMAN #### [facility] [address] [place] [address] Dr. Amy Carrion MCH 30.8 pg Normal 26.7-34.0 [facility] Comment on above: Performed By: #### C NOMAN #### [facility] [address] [place] [address] Dr. Amy Carrion MCHC 33.9 g/dl Normal 29.9-35.2 [facility] Comment on above: Performed By: #### C NOMAN #### [facility] [address] [address] [address] Amy Carrion MCV 90.9 fL Normal 81.0-99.0 [facility] Comment on above: Performed By: #### C BCMAN #### [facility] [address] [place] [address] Dr. Amy Carrion METAMYELOCYTE # Normal [facility] Comment on above: Performed By: #### C BCKAM #### [facility] [address] [place] [address] Dr. Amy Carrion METAMYELOCYTE % Normal [facility] Comment on above: Performed By: #### C BCKAM #### [facility] [address] [place] [address] Dr. Amy Carrion MONOM# 0.86 103/ul Critically high 0.30-0.80 [facility] Comment on above: Performed By: #### C BCKAM #### [facility] [address] [place] [address] Dr. Amy Carrion MONOM% 5.0 % Normal 1.7-12.0 [facility] Comment on above: Performed By: #### C NOMAN #### [facility] [address] [place] [address] Dr. Amy Carrion MPV 11.1 fL Normal 9.5-13.5 [facility] Comment on above: Performed By: #### C NOMAN #### [facility] [address] [place] [address] Dr. Amy Carrion MYELOCYTE # Normal [facility] Comment on above: Performed By: #### C BCKAM #### [facility] [address] [place] [address] Dr. Amy Carrion MYELOCYTE % Normal [facility] Comment on above: Performed By: #### C BCMAN #### [facility] [address] [place] [address] Dr. Amy Carrion NRBC Normal [facility] Comment on above: Performed By: #### C NOMAN #### [facility] [address] [place] [address] Dr. Amy Carrion PLT 203 103/ul Normal 150-450 [facility] Comment on above: Performed By: #### C NICOLASMAN #### [facility] [address] [address] [address] Amy Carrion RBC 3.96 106/ul Critically low 4.20-5.40 [facility] Comment on above: Performed By: #### C NOMAN #### [facility] [address] [address] [address] Amy Carrion RDW 12.7 % Normal 11.0-15.0 [facility] Comment on above: Performed By: #### C NOMAN #### [facility] [address] [address] [address] Amy Carrion SEG # 14.53 103/ul Critically high 1.40-6.50 [facility] Comment on above: Performed By: #### C NOMAN #### [facility] [address] [address] [address] Amy Carrion SEG % 84.0 % Critically high 43.0-75.0 [facility] Comment on above: Performed By: #### C NOMAN #### [facility] [address] [address] [address] Amy Carrion WBC 17.3 103/ul Critically high 4.0-11.0 [facility] Comment on above: Performed By: #### C NOMAN #### [facility] [address] [address] [address] Amy Carrion DRUG SCREEN RAPID (URINE)on 12-24-2021 AMP Negative Normal NEGATIVE [facility] Comment on above: Performed By: #### D RUGRPD #### [facility] [address] [place] [address] Dr. Amy Carrion BAR Negative Normal NEGATIVE [facility] Comment on above: Performed By: #### D RUGRPD #### [facility] [address] [address] [address] Amy Carrion BUP Negative Normal NEGATIVE [facility] Comment on above: Performed By: #### D RUGRPD #### [facility] [address] [address] [address] Amy Carrion BZO Negative Normal NEGATIVE [facility] Comment on above: Performed By: #### D RUGRPD #### [facility] [address] [place] [address] Dr. Amy Carrion MARISSA Negative Normal NEGATIVE [facility] Comment on above: Performed By: #### D RUGRPD #### [facility] [address] [place] [address] Dr. Amy Carrion CUT-OFFS SEE BELOW Normal [facility] Comment on above: Result Comment: AMP [...] ng/mL Performed By: #### D RUGRPD #### [facility] [address] [place] [address] Dr. Amy Carrion DRUG CUT HEADER DRUG CLASS TEST SYSTEM CUT-OFF CONCENTRATIONS ARE FOLLOWS: Normal [facility] Comment on above: Performed By: #### D RUGRPD #### [facility] [address] [place] [address] Dr. Amy Carrion mAMP Negative Normal NEGATIVE [facility] Comment on above: Performed By: #### D RUGRPD #### [facility] [address] [place] [address] Dr. Amy Carrion MTD Negative Normal NEGATIVE [facility] Comment on above: Performed By: #### D RUGRPD #### [facility] [address] [place] [address] Dr. Amy Carrion OPI Negative Normal NEGATIVE [facility] Comment on above: Performed By: #### D RUGRPD #### [facility] [address] [place] [address] Dr. Amy Carrion OXY Negative Normal NEGATIVE [facility] Comment on above: Performed By: #### D RUGRPD #### [facility] [address] [place] [address] Dr. Amy Carrion PCP Negative Normal NEGATIVE [facility] Comment on above: Performed By: #### D RUGRPD #### [facility] [address] [place] [address] Dr. Amy Carrion PPX Negative Normal NEGATIVE [facility] Comment on above: Performed By: #### D RUGRPD #### [facility] [address] [place] [address] Dr. Amy Carrion TCA Negative Normal NEGATIVE [facility] Comment on above: Performed By: #### D RUGRPD #### [facility] [address] [place] [address] Dr. Amy Carrion THC Negative Normal NEGATIVE [facility] Comment on above: Performed By: #### D RUGRPD #### [facility] [address] [place] [address] Dr. Amy Carrion TYPE AND SCREENon 12-24-2021 TYPE AND SCREEN Negative Normal [facility] Comment on above: Performed By: #### G TT3P #### [facility] [address] [place] [address] Dr. Amy Carrion US PREG BIOPHY W [...] MARIELLA WHITEHEAD Date: 2021-12-22 10:47 Normal [facility] US PREG GROWTHon 12-22-2021 US PREG [...] by: MARIELLA WHITEHEAD Date: 2021-12-22 10:49 Normal [facility] GROUP B STREP CULTUREon S. agalactiae [...] S F Tetracycline >=16 R F Normal [facility] Comment on above: Performed By: #### G TT3P #### [facility] [address] [place] [address] Dr. Amy Carrion GTT 3 HR PREGon 11-07-2021 Glucose [Mass/Vol] 91 mg/dL Normal 74-106 [facility] Comment on above: Performed By: #### G TT3P #### [facility] [address] [place] [address] Dr. Amy Carrion Glucose [Mass/Vol] 172 mg/dL Normal [facility] Comment on above: Performed By: #### G TT3P #### [facility] [address] [place] [address] Dr. Amy Carrion Glucose [Mass/Vol] 134 mg/dL Normal [facility] Comment on above: Performed By: #### G TT3P #### [facility] [address] [place] [address] Dr. Amy Carrion Glucose [Mass/Vol] 117 mg/dL Normal [facility] Comment on above: Performed By: #### G TT3P #### [facility] [address] [place] [address] Dr. Amy Carrion HEPATITIS C ANTIBODYon 10-27 Hep C Virus Ab 0.2 s/co ratio Normal 0.0-0.9 [facility] Comment on above: Result Comment: Nega tive: < 0.8 Indeterminate: 0.8 - 0.9 Positive: > 0.9 . The CDC recommends that a positive HCV antibody result be followed up with a HCV Nucleic Acid Amplification test (335135). Performed By: #### G TT3P #### [facility] [address] [place] [address] Dr. Amy Carrion HIV 1 AND 2 WITH REFLEXon HIV Screen 4th Generation wRfx Non-Reactive Normal Non Reactive [facility] Comment on above: Performed By: #### H IV12 #### [facility] [address] [place] [address] Dr. Amy Carrion GLUCOSE - 1HRon 10-26-2021 Glucose [Mass/Vol] 142 mg/dL Critically high 74-106 [facility] Comment on above: Performed By: #### G LU1HR #### [facility] [address] [place] [address] Dr. Amy Carrion HEMOGRAM AND PLATELon 2020 Hematocrit (Bld) [Volume fraction] 32.8 % Critically low 36.0-48.0 [facility] Comment on above: Performed By: #### H H #### [facility] [address] [place] [address] Dr. Amy Carrion Hemoglobin (Bld) [Mass/Vol] 10.7 g/dL Critically low 12.0-16.0 [facility] Comment on above: Performed By: #### H H #### [facility] [address] [place] [address] Dr. Amy Carrion MCH (RBC) [Entitic mass] 30.6 pg Normal 26.7-34.0 [facility] Comment on above: Performed By: #### H H #### [facility] [address] [place] [address] Dr. Amy Carrion MCHC (RBC) [Mass/Vol] 32.6 g/dL Normal 29.9-35.2 [facility] Comment on above: Performed By: #### H H #### [facility] [address] [place] [address] Dr. Amy Carrion MCV (RBC) [Entitic vol] 93.7 fL Normal 81.0-99.0 [facility] Comment on above: Performed By: #### H H #### [facility] [address] [place] [address] Dr. Amy Carrion PLT 197 103/ul Normal 150-450 [facility] Comment on above: Performed By: #### H H #### [facility] [address] [place] [address] Dr. Amy Carrion RBC 3.50 106/ul Critically low 4.20-5.40 [facility] Comment on above: Performed By: #### H H #### [facility] [address] [place] [address] Dr. Amy Carrion WBC 12.4 103/ul Critically high 4.0-11.0 [facility] Comment on above: Performed By: #### H H #### [facility] [address] [place] [address] Dr. Amy Carrion Vital Signs Date Time Vital Sign Value Performing Clinician Faci lity 02-08-2024 11:26-0500 Body mass index (BMI) [Ratio] 33.62 kg/m2 Janina DAY Work Phone: [facility] 01-02-2024 11:26-0500 Body weight 83.37 kg Janina DAY Work Phone: [facility] 01-02-2024 11:26-0500 Diastolic blood pressure 74 mm[Hg] Janina DAY Work Phone: [facility] 01-02-2024 11:26-0500 Systolic blood pressure 122 mm[Hg] Janina DAY Work Phone: [facility] Healthcare Encounters Encounter Date Encounter Type Care Provider Facility Start: 02-17-2024 End: 02-17-2024 ambulatory ASHOK ANUEL Not Available Start: 02-03-2024 End: 02-03-2024 ambulatory ASHOK ANUEL Not Available Start: 01-02-2024 End: 01-02-2024 ambulatory JANINA TEIXEIRA Not Available Start: 01-02-2024 End: 01-02-2024 flow sheet Janina DAY Work Phone: [facility] Comment on above: Second trimester pre gnancy; Constipation during in second trimester Start: 12-05-2023 End: 12-05-2023 ambulatory ASHOK ANUEL Not Available Start: 10-31-2023 End: 10-31-2023 ambulatory ASHOK ANUEL Not Available Start: 07-27-2022 End: 07-27-2022 ambulatory [...] EDT Office Visit [facility] [address] [id number] Ashok Bose, DO [address] [place], [place] [id number] [facility] Start: 02-03-2024 End: 02-03-2024 Patient encounter procedure 02/03/2024 1:50 PM EDT Routine [facility] [address] [place] [address] Ashok Bose, DO [address] [place] [address] [facility] Payers Date Payer Category Payer Unknown BCBS BCBS xxxxxx [id number] 2023-Present [phone] [address] [place] [address] [id number] 2023 Unknown [id number] 1997 Unknown [id number] [id number] 1997 Unknown [id number] 2.16.840.1.803511.3.579.2.593 1997 Unknown [id number] 2.16.840.1.582130.3.579.2.593 1997 Unknown [id number] 2.16.840.1.917772.3.579.2.593 1997 Unknown [id number] 2.16.840.1.392190.3.579.2.593 1997 Unknown [id number] 2.16.840.1.270128.3.579.2.593 1997 Unknown [id number] 2.16.840.1.090962.3.579.2.593 1997 Unknown [id number] 2.16.840.1.119826.3.579.2.593 1997 Unknown [id number] 2.16.840.1.614794.3.579.2.1259 1997 Unknown [id number] 2.16.840.1.688601.3.579.2.1259 1997 Unknown [id number] 2.16.840.1.301520.3.579.2.1259 1997 Unknown [id number] 2.16.840.1.744382.3.579.2.1259 1959 Self-pay 1957 Unknown [id number] Social History Date Type Detail Facility Tobacco smoking stat [facility] Tobacco smoking consumption unknown [facility] Start: 08-16-2023 [facility] Start: 1997 Sex Assigned At Not on file [facility] Gender identity Not on file [facility] History of Present illness Narrative 01-02-2024 [...] pital DATE CREATED AUTHOR AUTHOR'S ORGANIZ ATION 02/18/2024 [facility] EPIC Reason for Visit (unrecogniz ed [...] BE BASED ON THE PRIMARY CLINICAL RECORDS. [employer] provides no warranty or guarantee of the accuracy or completeness of information in this document.
[2024-02-25 15:17] LABS: Glucose Fasting 77 mg/dL (<95)
[2024-02-25 15:19] LABS: Glucose 1 Hour 162 mg/dL (<180)
[2024-02-25 16:11] LABS: Glucose 2 Hour 153 mg/dL (<155)
[2024-02-25 17:08] LABS: Glucose 3 Hour 125 mg/dL (<140)
== END 2024-02-25 13:42 | disposition home or self-care (01) ==
LOC: LAB 13:41
PROVIDERS: Visit Provider Obstetrics & Gynecology
DX: R73.09 Other abnormal glucose (principal)
CPT/HCPCS: 36415; 82951; 82952

== ENCOUNTER 2024-03-31 15:24 | Outpatient (OUT) | payer BC, SELFPAY ==
[2024-03-31 16:26] LABS: Thyroid Stimulating Hormone 2.166 uIU/mL (0.358-3.740)
== END 2024-03-31 15:25 | disposition home or self-care (01) ==
LOC: LAB 15:24
PROVIDERS: Visit Provider Obstetrics & Gynecology
DX: R79.89 Other specified abnormal findings of blood chemistry (principal)
CPT/HCPCS: 36415; 84443

== ENCOUNTER 2024-04-14 | Outpatient (REF) | payer BC, SELFPAY | END 2024-04-15 13:07 | disposition home or self-care (01) | LOC: LAB | PROVIDERS: Visit Provider Obstetrics & Gynecology | DX: Z34.93 Encounter for supervision of normal pregnancy, unspecified, third trimester (principal) | CPT/HCPCS: 87081; 87150; 87186 ==

== ENCOUNTER 2024-05-06 05:31 | Inpatient (IN) | payer BC, SELFPAY ==
[2024-05-06] VITALS (39 sets, daily range): BP systolic 91–131; BP diastolic 51–79; PULSE 71–92; TEMP 36.4–37.2; O2SAT 89–100
--- OUTSIDE RECORDS SUMMARY | 2024-05-06 05:35 | XMS_ITS | CCD ---
Author Organization [facility] Care Team Providers Care Retail Warehouse Associate Name Role Phone OMAR, DR FELIZ Attending [...] Admitting Unavailable KARASIK, DR FELIZ Attending Unavailable VIEQUES, DR MARIELLA Ramirez Consulting Unavailable ANUEL, DR PULIDO Consulting Unavailable ANUEL, DR PULIDO Attending Unavailable ANUEL, DR PULIDO Admitting Unavailable ANUEL, DR PULIDO Attending Unavailable ANUEL, DR PULIDO Admitting Unavailable Unavailable Primary Care Provider Unavailabl e ASHOK BOSE Attending Unavailable JANINA TEIXEIRA Attending Unavailable ANUELASHOK HERNANDEZ Attending Unavailable ANUELASHOK HERNANDEZ Attending Unavailable JANINA TEIXEIRA Attending Unavailable ANUELASHOK HERNANDEZ Attending Unavailable ANUEL, ASHOK Attending Unavailable LLUVIA, JANINA Attending Unavailable ANUELASHOK HERNANDEZ Attending Unavailable ANUELASHOK HRENANDEZ Attending Unavailable JANINA TEIXEIRA Attending Unavailable Medications Current Medications Medication Drug [...] UA Negative Negative - 4(70) +++ mg/dL [facility] Blood, UA Negative Negative - 50 Nathan/mcL [facility] Clarity, UA Clear [facility] re Color, UA Yellow [facility], [facility]A Negative Negative - 1999(110) ++++ mg/dL [facility] Interpretation and review of laboratory results Abnormal [facility] Ketones, UA Negative Negative - 160(16) ++++ mg/dL [facility] Leukocytes, UA Negative Negative - 500+++ Isha/mcL [facility] Nitrite, UA Negative Negative - Positive [facility] pH, UA 7.0 5 - 9 [facility] e Protein, UA Positive Negative - 1999(20) ++++ mg/dL [facility] Spec Grav, UA 1.020 1 - 1.03 [facility] Urobilinogen, UA 0.2 0.2 - 12 mg/dL [facility] W MANUAL DIFFon 12-26-19 22 ATYPICAL LYMPH # Normal [facility] Comment on above: Performed By: #### C NOMAN #### [facility] [address] [place] [address] Dr. Amy Carrion ATYPICAL LYMPH % Normal [facility] Comment on above: Performed By: #### C NOMAN #### [facility] [address] [address] [address] Amy Carrion BAND # 0.4 103/ul Critically high 0.0-0.3 [facility] Comment on above: Performed By: #### C NOMAN #### [facility] [address] [place] [address] Dr. Amy Carrion BAND % 3 % Normal 0-5 [facility] Comment on above: Performed By: #### C NOMAN #### [facility] [address] [place] [address] Dr. Amy Carrion BASOM # 0.00 103/ul Normal 0.00-0.10 [facility] Comment on above: Performed By: #### C NOMAN #### [facility] [address] [place] [address] Dr. Amy Carrion BASOM % 0.0 % Critically low 0.2-2.0 [facility] Comment on above: Performed By: #### C NOMAN #### [facility] [address] [address] [address] Amy Carrion BLAST # Normal [facility] Comment on above: Performed By: #### C NOMAN #### [facility] [address] [place] [address] Dr. Amy Carrion BLAST % Normal [facility] Comment on above: Performed By: #### C NOMAN #### [facility] [address] [place] [address] Dr. Amy Carrion CORRECTED WBC Normal 4.0-11.0 [facility] Comment on above: Performed By: #### C NOMAN #### [facility] [address] [address] [address] Amy Carrion EOS # 0.00 103/ul Normal 0.00-0.70 [facility] Comment on above: Performed By: #### Luzmaria TINEO #### [facility] [address] [place] [address] Dr. Amy Carrion EOS% 0.0 % Critically low 0.9-7.0 [facility] Comment on above: Performed By: #### Luzmaria TINEO #### [facility] [address] [place] [address] Dr. Amy Carrion HCT 24.9 % Critically low 36.0-48.0 [facility] Comment on above: Performed By: #### Luzmaria TINEO #### [facility] [address] [place] [address] Dr. Amy Carrion HGB 8.0 g/dl Critically low 12.0-16.0 [facility] Comment on above: Performed By: #### Luzmaria TINEO #### [facility] [address] [place] [address] Dr. Amy Carrion LYMPHM # 3.06 103/ul Normal 1.20-3.80 [facility] Comment on above: Performed By: #### Luzmaria TINEO #### [facility] [address] [place] [address] Dr. Amy Carrion LYMPHM% 22.0 % Normal 20.5-60.0 [facility] Comment on above: Performed By: #### Luzmaria TINEO #### [facility] [address] [place] [address] Dr. Amy Carrion MCH 30.8 pg Normal 26.7-34.0 [facility] Comment on above: Performed By: #### Luzmaria TINEO #### [facility] [address] [place] [address] Dr. Amy Carrion MCHC 32.1 g/dl Normal 29.9-35.2 [facility] Comment on above: Performed By: #### Luzmaria TINEO #### [facility] [address] [place] [address] Dr. Amy Carrion MCV 95.8 fL Normal 81.0-99.0 [facility] Comment on above: Performed By: #### C BCKAM #### [facility] [address] [place] [address] Dr. Amy Carrion METAMYELOCYTE # Normal [facility] Comment on above: Performed By: #### C BCMAN #### [facility] [address] [place] [address] Dr. Amy Carrion METAMYELOCYTE % Normal [facility] Comment on above: Performed By: #### C BCMAN #### [facility] [address] [place] [address] Dr. Amy Carrion MONOM# 1.25 103/ul Critically high 0.30-0.80 [facility] Comment on above: Performed By: #### C BCKAM #### [facility] [address] [place] [address] Dr. Amy Carrion MONOM% 9.0 % Normal 1.7-12.0 [facility] Comment on above: Performed By: #### C BCMAN #### [facility] [address] [place] [address] Dr. Amy Carrion MPV 11.0 fL Normal 9.5-13.5 [facility] Comment on above: Performed By: #### C NOMAN #### [facility] [address] [place] [address] Dr. Amy Carrion MYELOCYTE # Normal [facility] Comment on above: Performed By: #### C BCKAM #### [facility] [address] [place] [address] Dr. Amy Carrion MYELOCYTE % Normal [facility] Comment on above: Performed By: #### C BCKAM #### [facility] [address] [place] [address] Dr. Amy Carrion NRBC Normal [facility] Comment on above: Performed By: #### C BCKAM #### [facility] [address] [place] [address] Dr. Amy Carrion PLT 170 103/ul Normal 150-450 [facility] Comment on above: Performed By: #### C BCKAM #### [facility] [address] [address] [address] Amy Carrion RBC 2.60 106/ul Critically low 4.20-5.40 [facility] Comment on above: Performed By: #### C NOMAN #### [facility] [address] [address] [address] Amy Carrion RDW 13.1 % Normal 11.0-15.0 [facility] Comment on above: Performed By: #### C NOMAN #### [facility] [address] [address] [address] Amy Carrion SEG # 9.17 103/ul Critically high 1.40-6.50 [facility] Comment on above: Performed By: #### C NOMAN #### [facility] [address] [place] [address] Dr. Amy Carrion SEG % 66.0 % Normal 43.0-75.0 [facility] Comment on above: Performed By: #### C NOMAN #### [facility] [address] [address] [address] Amy Carrion WBC 13.9 103/ul Critically high 4.0-11.0 [facility] Comment on above: Performed By: #### C NOMAN #### [facility] [address] [place] [address] Dr. Amy Carrion CBC AUTO DIFFon 12-25-2021 BASO # 0.0 103/ul Normal 0.0-0.1 [facility] Comment on above: Performed By: #### C BC #### [facility] [address] [place] [address] Dr. Amy Carrion Basophils/100 WBC (Bld) 0.1 % Critically low 0.2-2.0 [facility] Comment on above: Performed By: #### C BC #### [facility] [address] [place] [address] Dr. Amy Carrion EO # 0.0 103/ul Normal 0.0-0.7 [facility] Comment on above: Performed By: #### C BC #### [facility] [address] [address] [address] Amy Carrion Eosinophils/100 WBC (Bld) 0.0 % Critically low 0.9-7.0 [facility] Comment on above: Performed By: #### C BC #### [facility] [address] [place] [address] Dr. Amy Carrion Erythrocyte distribution width (RBC) [Ratio] 13.0 % Normal 11.0-15.0 [facility] Comment on above: Performed By: #### C BC #### [facility] [address] [place] [address] Dr. Amy Carrion Hematocrit (Bld) [Volume fraction] 25.2 % Critically low 36.0-48.0 [facility] Comment on above: Performed By: #### C BC #### [facility] [address] [place] [address] Dr. Amy Carrion Hemoglobin (Bld) [Mass/Vol] 8.2 g/dL Critically low 12.0-16.0 [facility] Comment on above: Result Comment: Post Performed By: #### C BC #### [facility] [address] [place] [address] Dr. Amy Carrion IG # 0.27 10e3/ul Critically high 0.00-0.03 [facility] Comment on above: Performed By: #### C BC #### [facility] [address] [place] [address] Dr. Amy Carrion IG % 1.3 % Critically high 0.0-0.5 [facility] Comment on above: Performed By: #### C BC #### [facility] [address] [place] [address] Dr. Amy Carrion LYMPH # 2.3 103/ul Normal 1.2-3.8 [facility] Comment on above: Performed By: #### C BC #### [facility] [address] [place] [address] Dr. Amy Carrion Lymphocytes/100 WBC (Bld) 10.8 % Critically low 20.5-60.0 [facility] Comment on above: Performed By: #### C BC #### [facility] [address] [place] [address] Dr. Amy Carrion MANUAL DIFF REQ NO Normal [facility] Comment on above: Performed By: #### C BC #### [facility] [address] [place] [address] Dr. Amy Carrion MCH (RBC) [Entitic mass] 30.6 pg Normal 26.7-34.0 [facility] Comment on above: Performed By: #### C BC #### [facility] [address] [place] [address] Dr. Amy Carrion MCHC (RBC) [Mass/Vol] 32.5 g/dL Normal 29.9-35.2 [facility] Comment on above: Performed By: #### C BC #### [facility] [address] [place] [address] Dr. Amy Carrion MCV (RBC) [Entitic vol] 94.0 fL Normal 81.0-99.0 [facility] Comment on above: Performed By: #### C BC #### [facility] [address] [place] [address] Dr. Amy Carrion MONO # 1.8 103/ul Critically high 0.3-0.8 [facility] Comment on above: Performed By: #### C BC #### [facility] [address] [place] [address] Dr. Amy Carrion Monocytes/100 WBC (Bld) 8.4 % Normal 1.7-12.0 [facility] Comment on above: Performed By: #### C BC #### [facility] [address] [place] [address] Dr. Amy Carrion NEUT # 16.7 103/ul Critically high 1.4-6.5 [facility] Comment on above: Performed By: #### C BC #### [facility] [address] [place] [address] Dr. Amy Carrion Neutrophils/100 WBC (Bld) 79.4 % Critically high 43.0-75.0 [facility] Comment on above: Performed By: #### C BC #### [facility] [address] [place] [address] Dr. Amy Carrion Platelet mean volume (Bld) [Entitic vol] 10.9 fL Normal 9.5-13.5 [facility] Comment on above: Performed By: #### C BC #### [facility] [address] [address] [address] Amy Carrion PLT 167 103/ul Normal 150-450 [facility] Comment on above: Performed By: #### C BC #### [facility] [address] [place] [address] Dr. Amy Carrion RBC 2.68 106/ul Critically low 4.20-5.40 [facility] Comment on above: Performed By: #### C BC #### [facility] [address] [place] [address] Dr. Amy Carrion WBC 21.0 103/ul Critically high 4.0-11.0 [facility] Comment on above: Performed By: #### C BC #### [facility] [address] [place] [address] Dr. Amy Carrion ASYMPTOMATIC COVID-19 ANTIGE Non 12-24-2021 EUA Statement SEE BELOW Normal [facility] Comment on above: Result Comment: This [...] #### C VDAGA #### [facility] [address] [place] [address] Dr. Amy Carrion SARS-CoV-2 (COVID-19) RNA KERA+probe Ql (Unsp spec) Negative Normal NEGATIVE [facility] Comment on above: Result Comment: Nega tive results are presumptive. They do not preclude infection and should not be used as the sole basis for treatment decisions. Additional confirmatory testing by a molecular method should be considered. Performed By: #### C VDAGA #### [facility] [address] [place] [address] Dr. Amy Carrion CBC W MANUAL DIFFon 12-24-19 22 ATYPICAL LYMPH # Normal [facility] Comment on above: Performed By: #### C NOMAN #### [facility] [address] [place] [address] Dr. Amy Carrion ATYPICAL LYMPH % Normal [facility] Comment on above: Performed By: #### C NOMAN #### [facility] [address] [place] [address] Dr. Amy Carrion BAND # 0.3 103/ul Normal 0.0-0.3 [facility] Comment on above: Performed By: #### C NOMAN #### [facility] [address] [place] [address] Dr. Amy Carrion BAND % 2 % Normal 0-5 [facility] Comment on above: Performed By: #### C NOMAN #### [facility] [address] [place] [address] Dr. Amy Carrion BASOM # 0.00 103/ul Normal 0.00-0.10 [facility] Comment on above: Performed By: #### C NOMAN #### [facility] [address] [place] [address] Dr. Amy Carrion BASOM % 0.0 % Critically low 0.2-2.0 [facility] Comment on above: Performed By: #### C NOMAN #### [facility] [address] [place] [address] Dr. Amy Carrion BLAST # Normal [facility] Comment on above: Performed By: #### C NOMAN #### [facility] [address] [place] [address] Dr. Amy Carrion BLAST % Normal [facility] Comment on above: Performed By: #### C NOMAN #### [facility] [address] [place] [address] Dr. Amy Carrion CORRECTED WBC Normal 4.0-11.0 [facility] Comment on above: Performed By: #### C NOMAN #### [facility] [address] [address] [address] Amy Carrion EOS # 0.00 103/ul Normal 0.00-0.70 [facility] Comment on above: Performed By: #### C NOMAN #### [facility] [address] [place] [address] Dr. Amy Carrion EOS% 0.0 % Critically low 0.9-7.0 [facility] Comment on above: Performed By: #### C NOMAN #### [facility] [address] [place] [address] Dr. Amy Carrion HCT 36.0 % Normal 36.0-48.0 [facility] Comment on above: Performed By: #### C NOMAN #### [facility] [address] [place] [address] Dr. Amy Carrion HGB 12.2 g/dl Normal 12.0-16.0 [facility] Comment on above: Performed By: #### C NOMAN #### [facility] [address] [place] [address] Dr. Amy Carrion LYMPHM # 1.56 103/ul Normal 1.20-3.80 [facility] Comment on above: Performed By: #### C NOMAN #### [facility] [address] [place] [address] Dr. Amy Carrion LYMPHM% 9.0 % Critically low 20.5-60.0 [facility] Comment on above: Performed By: #### C NOMAN #### [facility] [address] [place] [address] Dr. Amy Carrion MCH 30.8 pg Normal 26.7-34.0 [facility] Comment on above: Performed By: #### C NOMAN #### [facility] [address] [place] [address] Dr. Amy Carrion MCHC 33.9 g/dl Normal 29.9-35.2 [facility] Comment on above: Performed By: #### C BCMAN #### [facility] [address] [place] [address] Dr. Amy Carrion MCV 90.9 fL Normal 81.0-99.0 [facility] Comment on above: Performed By: #### C BCKAM #### [facility] [address] [place] [address] Dr. Amy Carrion METAMYELOCYTE # Normal [facility] Comment on above: Performed By: #### C BCKAM #### [facility] [address] [place] [address] Dr. Amy Carrion METAMYELOCYTE % Normal [facility] Comment on above: Performed By: #### C NOMAN #### [facility] [address] [place] [address] Dr. Amy Carrion MONOM# 0.86 103/ul Critically high 0.30-0.80 [facility] Comment on above: Performed By: #### C NOMAN #### [facility] [address] [place] [address] Dr. Amy Carrion MONOM% 5.0 % Normal 1.7-12.0 [facility] Comment on above: Performed By: #### C NOMAN #### [facility] [address] [place] [address] Dr. Amy Carrion MPV 11.1 fL Normal 9.5-13.5 [facility] Comment on above: Performed By: #### C BCMAN #### [facility] [address] [place] [address] Dr. Amy Carrion MYELOCYTE # Normal [facility] Comment on above: Performed By: #### C BCMAN #### [facility] [address] [place] [address] Dr. Amy Carrion MYELOCYTE % Normal [facility] Comment on above: Performed By: #### C BCKAM #### [facility] [address] [place] [address] Dr. Amy Carrion NRBC Normal [facility] Comment on above: Performed By: #### C NOMAN #### [facility] [address] [address] [address] Amy Carrion PLT 203 103/ul Normal 150-450 [facility] Comment on above: Performed By: #### C NOMAN #### [facility] [address] [address] [address] Amy Carrion RBC 3.96 106/ul Critically low 4.20-5.40 [facility] Comment on above: Performed By: #### C NOMAN #### [facility] [address] [address] [address] Amy Carrion RDW 12.7 % Normal 11.0-15.0 [facility] Comment on above: Performed By: #### Luzmaria TINEO #### [facility] [address] [address] [address] Amy Carrion SEG # 14.53 103/ul Critically high 1.40-6.50 [facility] Comment on above: Performed By: #### Luzmaria TINEO #### [facility] [address] [address] [address] Amy Carrion SEG % 84.0 % Critically high 43.0-75.0 [facility] Comment on above: Performed By: #### Luzmaria TINEO #### [facility] [address] [address] [address] Amy Carrion WBC 17.3 103/ul Critically high 4.0-11.0 [facility] Comment on above: Performed By: #### Luzmaria TINEO #### [facility] [address] [address] [address] Amy Carrion DRUG SCREEN RAPID (URINE)on 12-24-2021 AMP Negative Normal NEGATIVE [facility] Comment on above: Performed By: #### D RUGRPLeah #### [facility] [address] [address] [address] Amy Carrion BAR Negative Normal NEGATIVE [facility] Comment on above: Performed By: #### D RAMINRPLeah #### [facility] [address] [address] [address] Amy Carrion BUP Negative Normal NEGATIVE [facility] Comment on above: Performed By: #### D RUGRPD #### [facility] [address] [place] [address] Dr. Amy Carrion BZO Negative Normal NEGATIVE [facility] Comment on above: Performed By: #### D RUGRPD #### [facility] [address] [place] [address] Dr. Amy Carrion MARISSA Negative Normal NEGATIVE [facility] Comment on above: Performed By: #### D RUGRPD #### [facility] [address] [place] [address] Dr. Amy Carrion CUT-OFFS SEE BELOW Normal [facility] Comment on above: Result Comment: AMP [...] #### D RUGRPD #### [facility] [address] [place] [address] Dr. Amy Carrion DRUG CUT HEADER DRUG CLASS TEST SYSTEM CUT-OFF CONCENTRATIONS ARE FOLLOWS: Normal [facility] Comment on above: Performed By: #### D RUGRPD #### [facility] [address] [place] [address] Dr. Amy Carrion mAMP Negative Normal NEGATIVE [facility] Comment on above: Performed By: #### D RUGRPD #### [facility] [address] [place] [address] Dr. Amy Carrion MTD Negative Normal NEGATIVE [facility] Comment on above: Performed By: #### D RUGRPD #### [facility] [address] [place] [address] Dr. Amy Carrion OPI Negative Normal NEGATIVE [facility] Comment on above: Performed By: #### D RUGRPD #### [facility] [address] [address] [address] Amy Carrion OXY Negative Normal NEGATIVE [facility] Comment on above: Performed By: #### D RUGRPD #### [facility] [address] [place] [address] Dr. Amy Carrion PCP Negative Normal NEGATIVE [facility] Comment on above: Performed By: #### D RUGRPD #### [facility] [address] [place] [address] Dr. Amy Carrion PPX Negative Normal NEGATIVE [facility] Comment on above: Performed By: #### D RUGRPD #### [facility] [address] [place] [address] Dr. Amy Carrion TCA Negative Normal NEGATIVE [facility] Comment on above: Performed By: #### D RUGRPD #### [facility] [address] [place] [address] Dr. Amy Carrion THC Negative Normal NEGATIVE [facility] Comment on above: Performed By: #### D RUGRPD #### [facility] [address] [place] [address] Dr. Amy Carrion TYPE AND SCREENon 12-24-2021 TYPE AND SCREEN Negative Normal [facility] Comment on above: Performed By: #### G TT3P #### [facility] [address] [place] [address] Dr. Amy Carrion US PREG BIOPHY W [...] by: MARIELLA WHITEHEAD Date: 2021-12-22 10:49 Normal [facility] GROUP B STREP CULTUREon S. agalactiae [...] S F Tetracycline >=16 R F Normal [facility] Comment on above: Performed By: #### G TT3P #### [facility] [address] [place] [address] Dr. Amy Carrion GTT 3 HR PREGon 11-07-2021 Glucose [Mass/Vol] 91 mg/dL Normal 74-106 [facility] Comment on above: Performed By: #### G TT3P #### [facility] [address] [place] [address] Dr. Amy Carrion Glucose [Mass/Vol] 172 mg/dL Normal [facility] [facility] Comment on above: Performed By: #### G TT3P #### [facility] [address] [place] [address] Dr. Amy Carrion Glucose [Mass/Vol] 134 mg/dL Normal [facility] Comment on above: Performed By: #### G TT3P #### [facility] [address] [place] [address] Dr. Amy Carrion Glucose [Mass/Vol] 117 mg/dL Normal [facility] Comment on above: Performed By: #### G TT3P #### [facility] [address] [place] [address] Dr. Amy Carrion HEPATITIS C ANTIBODYon 10-27 Hep C Virus Ab 0.2 s/co ratio Normal 0.0-0.9 [facility] Comment on above: Result Comment: Nega tive: < 0.8 Indeterminate: 0.8 - 0.9 Positive: > 0.9 . The CDC recommends that a positive HCV antibody result be followed up with a HCV Nucleic Acid Amplification test ([id number]). Performed By: #### G TT3P #### [facility] [address] [place] [address] Dr. Amy Carrion HIV 1 AND 2 WITH REFLEXon HIV Screen 4th Generation wRfx Non-Reactive Normal Non Reactive [facility] Comment on above: Performed By: #### H IV12 #### [facility] [address] [place] [address] Dr. Amy Carrion GLUCOSE - 1HRon 10-26-2021 Glucose [Mass/Vol] 142 mg/dL Critically high 74-106 [facility] Comment on above: Performed By: #### G LU1HR #### [facility] [address] [place] [address] Dr. Amy Carrion HEMOGRAM AND PLATELon 2020 Hematocrit (Bld) [Volume fraction] 32.8 % Critically low 36.0-48.0 [facility] Comment on above: Performed By: #### H H #### [facility] [address] [place] [address] Dr. Amy Carrion Hemoglobin (Bld) [Mass/Vol] 10.7 g/dL Critically low 12.0-16.0 [facility] Comment on above: Performed By: #### H H #### [facility] [address] [place] [address] Dr. Amy Carrion MCH (RBC) [Entitic mass] 30.6 pg Normal 26.7-34.0 [facility] Comment on above: Performed By: #### H H #### [facility] [address] [place] [address] Dr. Amy Carrion MCHC (RBC) [Mass/Vol] 32.6 g/dL Normal 29.9-35.2 [facility] Comment on above: Performed By: #### H H #### [facility] [address] [place] [address] Dr. Amy Carrion MCV (RBC) [Entitic vol] 93.7 fL Normal 81.0-99.0 [facility] Comment on above: Performed By: #### H H #### [facility] [address] [place] [address] Dr. Amy Carrion PLT 197 103/ul Normal 150-450 [facility] Comment on above: Performed By: #### H H #### [facility] [address] [place] [address] Dr. Amy Carrion RBC 3.50 106/ul Critically low 4.20-5.40 [facility] Comment on above: Performed By: #### H H #### [facility] [address] [place] [address] Dr. Amy Carrion WBC 12.4 103/ul Critically high 4.0-11.0 [facility] Comment on above: Performed By: #### H H #### [facility] [address] [address] [address] Amy Carrion Vital Signs Date Time Vital Sign Value Performing Clinician Faci lity 01-02-2024 11:26-0500 Body mass index (BMI) [Ratio] 33.62 kg/m2 Janina DAY Work Phone: [facility] 01-02-2024 11:26-0500 Body weight 83.37 kg Janina DAY Work Phone: [facility] 01-02-2024 11:26-0500 Diastolic blood pressure 74 mm[Hg] Janina DAY Work Phone: [facility] 01-02-2024 11:26-0500 Systolic blood pressure 122 mm[Hg] Janina DAY Work Phone: [facility] Encounters Encounter Date Encounter Type Care Provider Facility Start: 04-29-2024 End: 04-29-2024 ambulatory JANINA LLUVIA Not Available Start: 04-23-2024 End: 04-23-2024 ambulatory ASHOK ANUEL Not Available Start: 04-14-2024 End: 04-14-2024 ambulatory ASHOK ANUEL Not Available Start: 03-31-2024 End: 03-31-2024 ambulatory JANINA LLUVIA Not Available Start: 03-17-2024 End: 03-17-2024 ambulatory ASHOK ANUEL Not Available Start: 03-03-2024 End: 03-03-2024 ambulatory JANINA LLUVIA Not Available Start: 02-17-2024 End: 02-17-2024 ambulatory ASHOK ANUEL Not Available Start: 02-03-2024 End: 02-03-2024 ambulatory ASHOK ANUEL Not Available Start: 01-02-2024 End: 01-02-2024 ambulatory JANINA LLUVIA Not Available Start: 01-02-2024 End: 01-02-2024 flow sheet Janina DAY Work Phone: [facility] Comment on above: Second trimester pre [...] Visit [facility] [address] [place] [address] Ashok Bose DO [address] [place] [address] [facility] Start: 02-03-2024 End: 02-03-2024 Patient encounter procedure 02/03/2024 1:50 PM EDT Routine [facility] [address] [place] [address] Ashok Bose DO [address] [place] [address] [facility] Payers Date Payer Category Payer Unknown BCBS BCBS xxxxxx [id number] 2023-Present [phone] [address] [place] [address] [id number] 2023 Unknown [id number] 1997 Unknown [id number] [id number] 1997 Unknown [id number] 2.16.840.1.241239.3.579.2.593 1997 Unknown [id number] 2.16.840.1.278975.3.579.2.593 1997 Unknown [id number] 2.16.840.1.854256.3.579.2.593 1997 Unknown [id number] 2.16.840.1.533432.3.579.2.593 1997 Unknown [id number] 2.16.840.1.837785.3.579.2.593 1997 Unknown [id number] 2.16.840.1.217168.3.579.2.593 1997 Unknown [id number] 2.16.840.1.605006.3.579.2.593 1997 Unknown [id number] 2.16.840.1.196080.3.579.2.1259 1997 Unknown [id number] 2.16.840.1.549569.3.579.2.1259 1997 Unknown [id number] 2.16.840.1.821009.3.579.2.1259 1997 Unknown [id number] 2.16.840.1.651730.3.579.2.1259 1997 Unknown [id number] 2.16.840.1.457709.3.579.2.9 1997 Unknown [id number] 2.16.840.1.148813.3.579.2.9 1997 Unknown [id number] 2.16.840.1.914649.3.579.2.9 1997 Unknown [id number] 2.16.840.1.011864.3.579.2.9 1997 Unknown [id number] 2.16.840.1.025763.3.579.2.9 1997 Unknown [id number] 2.16.840.1.908675.3.579.2.1259 1959 Self-pay 1957 Unknown [id number] Social History Date Type Detail Facility Tobacco smoking stat [facility] Tobacco smoking consumption unknown [facility] DATE CREATED AUTHOR AUTHOR'S ORGANRAUL ATION 04/30/2024 [facility] Reason for Visit (unrecogniz ed section and [...] BE BASED ON THE PRIMARY CLINICAL RECORDS. [employer] provides no warranty or guarantee of the accuracy or completeness of information in this document.
[2024-05-06 06:30] LABS: Basophils Absolute Auto 0.1 10^3/uL (0.0-0.1); Basophils Percent Auto 0.6 % (0.2-2.0); Eosinophils Absolute Auto 0.1 10^3/uL (0.0-0.7); Eosinophils Percent Auto 0.6 % (0.9-7.0); Hematocrit 30.2 % (36.0-48.0); Hemoglobin 10.1 g/dL (12.0-16.0); Immature Granulocytes Abs Auto 0.26 10^3/uL (0.00-0.03); Immature Granulocytes Pct Auto 2.2 % (0.0-0.5); Lymphocytes Absolute Auto 2.9 10^3/uL (1.2-3.8); Lymphocytes Percent Auto 24.1 % (20.5-60.0); Mean Corpuscular HGB Conc 33.4 g/dL (29.9-35.2); Mean Corpuscular Hemoglobin 29.5 pg (26.7-34.0); Mean Corpuscular Volume 88.3 fL (81.0-99.0); Mean Platelet Volume 10.8 fL (9.5-13.5); Monocytes Percent Auto 8.7 % (1.7-12.0); Neutrophils Absolute Auto 7.6 10^3/uL (1.4-6.5); Neutrophils Percent Auto 63.8 % (43.0-75.0); Platelet Count 204 10^3/uL (150-450); Red Blood Count 3.42 10^6/uL (4.20-5.40); Red Cell Distribution Width 12.9 % (11.0-15.0); White Blood Count 11.9 10^3/uL (4.0-11.0)
[2024-05-06 06:39] LABS: Amphetamine Screen Urine NEGATIVE (NEGATIVE); Barbiturates Screen Urine NEGATIVE (NEGATIVE); Benzodiazepines Screen Urine NEGATIVE (NEGATIVE); Buprenorphine Screen Urine NEGATIVE (NEGATIVE); Cannabinoid Screen Urine NEGATIVE (NEGATIVE); Cocaine Screen Urine NEGATIVE (NEGATIVE); Methadone Screen Urine NEGATIVE (NEGATIVE); Methamphetamines Screen Urine NEGATIVE (NEGATIVE); Opiate Screen Urine NEGATIVE (NEGATIVE); Oxycodone Screen Urine NEGATIVE (NEGATIVE); Phencyclidine Screen Urine NEGATIVE (NEGATIVE); Tricyclic Antidepressant Urine NEGATIVE (NEGATIVE)
[2024-05-06] MEDS: 0.9 % SODIUM CHLORIDE 1,000 ML 1000 ML IV ×2 (06:50→06:56)
[2024-05-06] MEDS: METOCLOPRAMIDE HCL 10 MG/2 ML VIAL IVP (06:55)
[2024-05-06] MEDS: CITRIC ACID/SODIUM CITRATE 30 ML SOLUTION ORACIT SHOHL'S SOLN PO (06:56)
[2024-05-06] MEDS: FAMOTIDINE/PF 20 MG/2 ML VIAL IV (06:56)
[2024-05-06] MEDS: CEFAZOLIN SODIUM/DEXTROSE,ISO 2 GM/50 ML PIGGYBACK IV ×2 (08:16→14:17)
[2024-05-06] MEDS: LACTATED RINGER'S SOLUTION 1,000 ML 50 ML IV (09:06)
--- NOTE | 2024-05-06 09:08 | P.ON_ITS ---
Brief Operative Note Date of procedure: 05/06/24 Pre-op diagnosis general: iup at 39wks, previous c/s Post-op diagnosis: same as pre-op Procedure: NAME OF PROCEDURE: [ section ] PROCEDURE: Patient was taken back to the Operating Room where she was given a spinal anesthesia with Duramorph without difficulty. She was prepped and draped in the normal sterile fashion. A Pfannenstiel skin incision was then made 2 cm above the symphysis pubis and carried down to underlying rectus fascia using a Bovie. The fascia was incised in the midline and extended laterally using Kern scissors. Two Shelia clamps were placed on the superior aspect of the fascia and dissected off the underlying rectus muscles. The same was performed on the inferior aspect as well. The muscles were then in the midline. Peritoneum was identified and entered bluntly. The peritoneum was then extended superiorly and inferiorly with good visualization of the bladder. The bladder blade was inserted. A low transverse incision was made on the patient's uterus and extended laterally digitally. The was then delivered atraumatically after the bladder blade was removed in the cephalic position. The cord was clamped and cut. Cord blood was obtained. The was handed off to awaiting team. The patient's placenta was spontaneously delivered. The uterus was then exteriorized. The uterus was cleared of all clots and debris. The bladder blade was reinserted. The patient's uterine incision was closed using #0 Vicryl in a running lock fashion. Excellent hemostasis was assured. The uterus was then returned to the patient's abdomen. The patient's abdomen was copiously irrigated using warm saline. Peritoneal gutters were cleared of all clots and debris. Again excellent hemostasis was assured. The patient's peritoneum was closed using 3-0 Vicryl in a running fashion. The patient's fascia was closed using #0 Vicryl in a running fashion. The patient's skin was closed using 4-0 Vicryl subcuticularly. The patient tolerated the procedure well. Sponge, lap, and needle counts were correct x2. The patient was taken to the Recovery Room in stable condition. Anesthesia: spinal Surgeon: Phillip Bose Crop Research Scientist: Hetal Jones Estimated blood loss (mL): 600 Pathology: none sent Condition: stable Disposition: floor Urinary Catheter Management Urinary Catheter Management Urethral: Cath placed during this visit: no
--- NOTE | 2024-05-06 09:10 | P.OBPRC_ITS ---
Procedure Pre-op/Post-op diagnoses: Pre-Op/Post-Op Diagnoses Operation Date: 05/06/24 07:30 <No data on this case meets the specified criteria> Procedure: Procedures Operation Date: 05/06/24 07:30 Actual Procedure Side Surgeon p Repeat Not Applicable Phillip Bose DO Supervisor Roving Department: Hetal Jones Estimated blood loss (mL): 600 Disposition: floor Anesthesia type: Spinal
[2024-05-06] MEDS: 0.9 % SODIUM CHLORIDE 10 ML VIAL 30 ML INJ (09:20)
[2024-05-06] MEDS: BUPIVACAINE LIPOSOME/PF 266 MG/13.3 ML VIAL INJ (09:20)
[2024-05-06] MEDS: BUPIVACAINE HCL 0.5% PF 50 MG/10 ML VIAL INJ (09:20)
[2024-05-06] MEDS: OXYTOCIN/0.9 % SODIUM CHLORIDE 20 UNITS/1,000 ML PLAST..BAG 125 UNIT IV (09:45)
[2024-05-06] MEDS: KETOROLAC TROMETHAMINE 30 MG/ML VIAL IVP ×2 (15:27→22:24)
[2024-05-06] MEDS: ACETAMINOPHEN 500 MG TABLET 1000 MG PO (20:15)
[2024-05-06] MEDS: ENOXAPARIN SODIUM 40 MG/0.4 ML SYRINGE SUBQ (22:25)
--- NOTE | 2024-05-06 22:47 | PC.NURSE ---
Arizmendi Catheter discontinued per protocal. Urine emptied.
[2024-05-07] VITALS (13 sets, daily range): BP systolic 113–115; BP diastolic 70–76; PULSE 88–95; TEMP 36.5–36.7; O2SAT 75–100
[2024-05-07] MEDS: KETOROLAC TROMETHAMINE 30 MG/ML VIAL IVP (03:44)
[2024-05-07 06:13] LABS: Basophils Absolute Auto 0.1 10^3/uL (0.0-0.1); Basophils Percent Auto 0.3 % (0.2-2.0); Eosinophils Absolute Auto 0.1 10^3/uL (0.0-0.7); Eosinophils Percent Auto 0.4 % (0.9-7.0); Hematocrit 25.6 % (36.0-48.0); Hemoglobin 8.1 g/dL (12.0-16.0); Immature Granulocytes Abs Auto 0.29 10^3/uL (0.00-0.03); Immature Granulocytes Pct Auto 1.8 % (0.0-0.5); Lymphocytes Absolute Auto 3.5 10^3/uL (1.2-3.8); Lymphocytes Percent Auto 21.5 % (20.5-60.0); Mean Corpuscular HGB Conc 31.6 g/dL (29.9-35.2); Mean Corpuscular Hemoglobin 29.2 pg (26.7-34.0); Mean Corpuscular Volume 92.4 fL (81.0-99.0); Mean Platelet Volume 11.1 fL (9.5-13.5); Monocytes Absolute Auto 1.5 10^3/uL (0.3-0.8); Neutrophils Absolute Auto 10.8 10^3/uL (1.4-6.5); Platelet Count 164 10^3/uL (150-450); Red Blood Count 2.77 10^6/uL (4.20-5.40); Red Cell Distribution Width 12.8 % (11.0-15.0); White Blood Count 16.2 10^3/uL (4.0-11.0)
--- NOTE | 2024-05-07 06:49 | P.OBPN_ITS ---
OB - PN: Subj Subjective Patient comments: no complaints and pain well controlled [place] status: doing well Exam Constitutional Vital Signs, click to edit/add: Last Vital Signs Temp 98.0 F 05/07/24 04:00 Pulse 88 05/07/24 04:00 Resp 16 05/07/24 04:00 BP 113/75 05/07/24 04:00 Pulse Ox 100 05/07/24 04:00 O2 Del Method Room Air 05/07/24 04:00 Documenting provider has reviewed patient's vital signs: yes Common normals: no apparent distress Respiratory Common normals: normal respiratory effort and clear to auscultation bilaterally Cardio Common normals: regular rate and regular rhythm GI Common normals: Normal to inspection, nondistended, normoactive bowel sounds present Extremity Common normals: no clubbing, cyanosis or edema and no calf tenderness Results Labs Labs: Short CBC 05/07/24 Range/Units 05:53 WBC 16.2 H (4.0-11.0) 10^3/uL Hgb 8.1 L (12.0-16.0) g/dL Hct 25.6 L (36.0-48.0) % Plt Count 164 (150-450) 10^3/uL Urinary Catheter Management Urinary Catheter Management Urethral: Cath placed during this visit: yes, but has since been removed by the nu rse Insertion date: 05/06/24 Removal date: 05/06/24 Removal time: 22:40 OB - PN: A/P Plan - day: 1 Plan: routine postop care Time Spent with Patient Time: Total time spent is greater than 50% in coordination of care (as documented) at patient's floor/unit and/or counseling patient: Total time spent with greater than 50% in coordination of care (as documented) at patient's floor/unit and/or counseling patient: less than 15 minutes
[2024-05-07] MEDS: IBUPROFEN 400 MG TABLET 800 MG PO ×2 (08:39→18:41)
[2024-05-07] MEDS: ACETAMINOPHEN 500 MG TABLET 1000 MG PO ×2 (13:09→21:20)
[2024-05-07] MEDS: ENOXAPARIN SODIUM 40 MG/0.4 ML SYRINGE SUBQ (21:21)
[2024-05-07] MEDS: SERTRALINE HCL 50 MG TABLET PO (21:21)
[2024-05-07] MEDS: DOCUSATE SODIUM 100 MG CAPSULE PO (21:21)
[2024-05-07] MEDS: BUPROPION HCL 150 MG XL TABLET 24H PO (21:21)
[2024-05-08] MEDS: IBUPROFEN 400 MG TABLET 800 MG PO ×2 (00:50→09:08)
[2024-05-08] MEDS: ACETAMINOPHEN 500 MG TABLET 1000 MG PO ×2 (05:02→13:38)
[2024-05-08 09:10] VITALS: BP 125/82
[2024-05-08 09:11] VITALS: PULSE 90; TEMP 36.4
--- NOTE | 2024-05-08 11:29 | P.DS_ITS ---
DS: Providers Provider Date of admission: 05/06/24 05:31 Primary care physician: Non-Staff Physician, Admitting clinician: Phillip Bose Consults: 05/06/24 Consult to Anesthesiology Routine Consulting Provider: Guillaume Goddard Reason for consultation: Spinal Attending physician on discharge: Tonia Huddleston Anticipated date of discharge: 05/08/24 DS: Diagnosis Discharge Diagnosis (1) delivery delivered: Assessment and plan: post op course uncomplicated, will discharge home today with instructions and follow up, will be on one tab iron qd for one month for anemia from blood loss. given prescriptions for anti depressants (2), percocet 5/325, ibuprofen 600 mg, and iron sulfate 325 mg (2) Anxiety: Assessment and plan: emotionally doing well on bupropion and zoloft Plan will be assessed at follow up for medication adjustment as indicated OB - DS: Summary Hospital Course Hospital Course: uncomplicated Time spent discussing smoking cessation with patient: 3 to 10 minutes Peripartum Data - Procedures: Procedures Operation Date: 05/06/24 07:30 Actual Procedure Side Surgeon p Repeat Not Applicable Phillip Bose DO Peripartum Data - Vaginal Delivery Procedures: Procedures Operation Date: 05/06/24 07:30 Actual Procedure Side Surgeon p Repeat Not Applicable Phillip Bose DO Complications complications: none Delivery method: section Gender: male Discharge plan: home Status at Discharge Cognitive/behavioral status at discharge: WNL Functional status at discharge: independent ambulation Overall status at discharge: patient is progressing back to baseline Time Spent with Patient Time attestation: Total time spent providing and/or coordinating discharge services: Time spent: less than 30 minutes Exam Narrative Exam Narrative: VOICING NO COMPLAINTS Constitutional Vital Signs, click to edit/add: Last Vital Signs Temp 97.6 F 05/08/24 09:11 Pulse 90 05/08/24 09:11 Resp 14 05/08/24 09:11 BP 125/82 05/08/24 09:10 Pulse Ox 96 05/07/24 09:31 O2 Del Method Room Air 05/08/24 09:11 Documenting provider has reviewed patient's vital signs: yes Common normals: no apparent distress HENMT Common normals: normocephalic and head/scalp atraumatic Eye Common normals: PERRL Pupil: accommodation reflex normal Neck & C-Spine Common normals: full ROM and supple Respiratory Common normals: normal respiratory effort Cardio Common normals: regular rate and regular rhythm GI Common normals: Normal to inspection, nondistended, normoactive bowel sounds present, soft to palpation and non-tender Common normals: no CVA tenderness Back & Pelvis Common normals: no thoracic nor lumbar tenderness Extremity Common normals: full ROM and no calf tenderness Neuro Common normals: CN's II-XII intact bilaterally, moves all extremities, no focal motor deficits and no sensory deficits noted Psych Common normals: mental status grossly normal, thought process normal, cooperative and affect normal Discharge Plan Discharge Disposition: Home, Self-Care Condition: Good Assessment: voicing no complaints, antidepressants working well, bonding with baby, chart reviewed, will start iron daily for a month Health Concerns: none Discharge Medications: Discontinued bupropion HCl 150 mg tablet extended release 24 hr PO sertraline [Zoloft] 50 mg tablet 50 mg PO DAILY Activity: increase activity as tolerated Diet: regular diet Print Language: [place] Verde[place] Patient Instructions: (DC) Activity Restrictions/Additional Instructions: no sex six weeks, no lifting six weeks, limit driving 4 weeks, may climb stairs, no swimming 4 weeks Forms: Portal Instructions Follow Up Appointments: incision check one week Discharge location: home
== END 2024-05-08 14:00 | disposition home or self-care (01) | DRG 788 ==
PROVIDERS: Admitting Provider Obstetrics & Gynecology; Visit Provider Obstetrics & Gynecology
PROC: 10D00Z1 Extraction of Products of Conception, Low, Open Approach (ICD-10-PCS; CPT 59514; principal; 2024-05-06 07:30)
DX: O34.211 Maternal care for low transverse scar from previous cesarean delivery (principal); O99.344 Other mental disorders complicating childbirth; F41.9 Anxiety disorder, unspecified; O99.824 Streptococcus B carrier state complicating childbirth; Z3A.39 39 weeks gestation of pregnancy; Z37.0 Single live birth
CPT/HCPCS: 36415; 64488; 80307; 85025; 86850; 86900; 86901; 94667; 94668; 96372; 96374; 96375; 96376; J0131; J0665; J0690; J1110; J1650; J1885; J2274; J2371; J2405; J2590; J2765

== ENCOUNTER 2024-05-12 08:07 | Outpatient (OUT) | payer BC, SELFPAY ==
--- NOTE | 2024-05-12 12:34 | PC.NURSE ---
Ricky Long, 4 yo Kavon and 6 day old Wu arrive for follow up visit. Parents express the second time around is so much easier Parents able relax and enjoy . Mom relates nipples are tender, but so much better than with first child. 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 Mercedes with VSS and assessment WNL. No longer needs medication for incisional pain. Only takes Motrin when has all over discomfort. Incision clean and dry, no redness or drainage noted. Steri strips intact. Does have +2 edema in feet and lower legs, soft, not pitting. No further concerns for self or for care. Wu with VSS and assessment WNL. Infant 10 grams from weight on day 6 of life. Feeds every 3 hours, cluster feeding from 7pm to 2 am. Mom states is trying to adjust feeding routine so cluster does not last 5 hours. Ricky very supportive and helpful with NB and 4 yo daughter. Strong family bonding noted. Mom does voice concern over 4 yo transition to daddy was so easy. 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 Feelings validated as is in place of transition. Discussed normal expected behavior for 4 yo and that children are capable of building strong bonds with mother through nurturing and then transition to father easily as part of growth and development stage of life. Verbalized understanding, but a little tearful at the moment. Aware is natural progression of growth, but didn't know it would feel so sudden . Mom aware to call for concerns or questions . Aware of [facility]OM[facility] group for additional support. Family leaves ambulatory.
[2024-05-12 12:39] VITALS: BP 126/88; PULSE 100; TEMP 36.6; O2SAT 98
== END 2024-05-12 10:15 | disposition home or self-care (01) ==
PROVIDERS: Visit Provider Obstetrics & Gynecology
DX: Z39.2 Encounter for routine postpartum follow-up (principal)

== ENCOUNTER 2024-06-09 08:20 | Outpatient (OUT) | payer BC, SELFPAY ==
--- OUTSIDE RECORDS SUMMARY | 2024-06-09 08:27 | XMS_ITS | CCD ---
Author Organization [facility] Care Team Providers Care Field Staff Manager Name Role Phone OMAR, DR FELIZ Attending Unavailable KARASIK, DR FELIZ Admitting Unavailable ANUEL, DR PULIDO Attending Unavailable ANUEL, DR PULIDO Consulting Unavailable ANUEL, DR PULIDO Admitting Unavailable NAUEL, DR PULIDO Attending Unavailable ANUEL, DR PULIDO [...] Unavailable Unavailable Primary Care Provider Unavailabl e ANUELASHOK HERNANDEZ Attending Unavailable LLUVIAJANINA MCALLISTER Attending Unavailable ANUEL, ASHOK Attending Unavailable ANUELASHOK HERNANDEZ Attending Unavailable LLUVIAJANINA MCALLISTER Attending Unavailable ANUELASHOK Attending Unavailable ANUEL, ASHOK Attending Unavailable LLUVIA JANINA Attending Unavailable ANUEL, ASHOK Attending Unavailable ANUELASHOK Attending Unavailable LLUVIA, JANINA Attending Unavailable ANUELASHOK HERNANDEZ Attending Unavailable Medications Current Medications Medication Drug [...] UA Negative Negative - 4(70) +++ mg/dL [facility] Blood, UA Negative Negative - 50 Nathan/mcL [facility] Clarity, UA Clear [facility] re Color, UA Yellow [facility] e Glucose, UA Negative Negative - 1999(110) ++++ mg/dL [facility] Interpretation and review of laboratory results Abnormal [facility] Ketones, UA Negative Negative - 160(16) ++++ mg/dL [facility] Leukocytes, UA Negative Negative - 500+++ Isha/mcL [facility] Nitrite, UA Negative Negative - Positive [facility] pH, UA 7.0 5 - 9 [facility] e Protein, UA Positive Negative - 1999(20) ++++ mg/dL [facility] Spec Grav, UA 1.020 1 - 1.03 [facility] Urobilinogen, UA 0.2 0.2 - 12 [facility] W [facility]UAL DIFFon 12-26-19 22 ATYPICAL LYMPH # Normal [facility] Comment on above: Performed By: #### C NOMAN #### [facility] [address] [place] [address] Dr. Amy Carrion ATYPICAL LYMPH % Normal [facility] Comment on above: Performed By: #### C NOMAN #### [facility] [address] [address] [address] Amy Carrion BAND # 0.4 103/ul Critically high 0.0-0.3 [facility] Comment on above: Performed By: #### C NOMAN #### [facility] [address] [place] [address] Dr. Amy Carrion BAND % 3 % Normal 0-5 [facility] Comment on above: Performed By: #### C NOMAN #### [facility] [address] [place] [address] Dr. Amy Carrion BASOM # 0.00 103/ul Normal 0.00-0.10 [facility] Comment on above: Performed By: #### C NOMAN #### [facility] [address] [place] [address] Dr. Amy Carrion BASOM % 0.0 % Critically low 0.2-2.0 [facility] Comment on above: Performed By: #### C NOMAN #### [facility] [address] [place] [address] Dr. Amy Carrion BLAST # Normal [facility] Comment on above: Performed By: #### C NOMAN #### [facility] [address] [place] [address] Dr. Amy Carrion BLAST % Normal [facility] Comment on above: Performed By: #### C NOMAN #### [facility] [address] [place] [address] Dr. Amy Carrion CORRECTED WBC Normal 4.0-11.0 [facility] Comment on above: Performed By: #### C NOMAN #### [facility] [address] [address] [address] Amy Carrion EOS # 0.00 103/ul Normal 0.00-0.70 [facility] Comment on above: Performed By: #### C NOMAN #### [facility] [address] [place] [address] Dr. Amy Carrion EOS% 0.0 % Critically low 0.9-7.0 [facility] Comment on above: Performed By: #### C NOMAN #### [facility] [address] [place] [address] Dr. Amy Carrion HCT 24.9 % Critically low 36.0-48.0 [facility] Comment on above: Performed By: #### C NOMAN #### [facility] [address] [place] [address] Dr. Amy Carrion HGB 8.0 g/dl Critically low 12.0-16.0 [facility] Comment on above: Performed By: #### Luzmaria TINEO #### [facility] [address] [place] [address] Dr. Amy Carrion LYMPHM # 3.06 103/ul Normal 1.20-3.80 [facility] Comment on above: Performed By: #### C NOMAN #### [facility] [address] [place] [address] Dr. Amy Carrion LYMPHM% 22.0 % Normal 20.5-60.0 [facility] Comment on above: Performed By: #### C NOMAN #### [facility] [address] [place] [address] Dr. Amy Carrion MCH 30.8 pg Normal 26.7-34.0 [facility] Comment on above: Performed By: #### Luzmaria TINEO #### [facility] [address] [place] [address] Dr. Amy Carrion MCHC 32.1 g/dl Normal 29.9-35.2 [facility] Comment on above: Performed By: #### Luzmaria TINEO #### [facility] [address] [place] [address] Dr. Amy Carrion MCV 95.8 fL Normal 81.0-99.0 [facility] Comment on above: Performed By: #### C BCMAN #### [facility] [address] [place] [address] Dr. Amy Carrion METAMYELOCYTE # Normal [facility] Comment on above: Performed By: #### C BCKAM #### [facility] [address] [place] [address] Dr. Amy Carrion METAMYELOCYTE % Normal [facility] Comment on above: Performed By: #### C BCMAN #### [facility] [address] [address] [address] Amy Carrion MONOM# 1.25 103/ul Critically high 0.30-0.80 [facility] Comment on above: Performed By: #### C NOMAN #### [facility] [address] [place] [address] Dr. Amy Carrion MONOM% 9.0 % Normal 1.7-12.0 [facility] Comment on above: Performed By: #### C BCMAN #### [facility] [address] [place] [address] Dr. Amy Carrion MPV 11.0 fL Normal 9.5-13.5 [facility] Comment on above: Performed By: #### C NOMAN #### [facility] [address] [place] [address] Dr. Amy Carrion MYELOCYTE # Normal [facility] Comment on above: Performed By: #### C NOMAN #### [facility] [address] [place] [address] Dr. Amy Carrion MYELOCYTE % Normal [facility] Comment on above: Performed By: #### C NOMAN #### [facility] [address] [place] [address] Dr. Amy Carrion NRBC Normal [facility] Comment on above: Performed By: #### C BCMAN #### [facility] [address] [place] [address] Dr. Amy Carrion PLT 170 103/ul Normal 150-450 [facility] Comment on above: Performed By: #### C BCKAM #### [facility] [address] [address] [address] Amy Carrion RBC 2.60 106/ul Critically low 4.20-5.40 [facility] Comment on above: Performed By: #### C NOMAN #### [facility] [address] [address] [address] Amy Carrion RDW 13.1 % Normal 11.0-15.0 [facility] Comment on above: Performed By: #### C NOMAN #### [facility] [address] [place] [address] Dr. Amy Carrion SEG # 9.17 103/ul Critically high 1.40-6.50 [facility] Comment on above: Performed By: #### C NOMAN #### [facility] [address] [place] [address] Dr. Amy Carrion SEG % 66.0 % Normal 43.0-75.0 [facility] Comment on above: Performed By: #### C NOMAN #### [facility] [address] [place] [address] Dr. Amy Carrion WBC 13.9 103/ul Critically high 4.0-11.0 [facility] Comment on above: Performed By: #### C NOMAN #### [facility] [address] [place] [address] Dr. Amy Carrion CBC AUTO DIFFon 12-25-2021 BASO # 0.0 103/ul Normal 0.0-0.1 [facility] Comment on above: Performed By: #### C BC #### [facility] [address] [place] [address] Dr. Amy Carrion Basophils/100 WBC (Bld) 0.1 % Critically low 0.2-2.0 [facility] Comment on above: Performed By: #### C BC #### [facility] [address] [place] [address] Dr. Amy Carrion EO # 0.0 103/ul Normal 0.0-0.7 [facility] Comment on above: Performed By: #### C BC #### [facility] [address] [place] [address] Dr. Amy Carrion Eosinophils/100 WBC (Bld) 0.0 % Critically low 0.9-7.0 [facility] Comment on above: Performed By: #### C BC #### [facility] [address] [place] [address] Dr. Amy Carrion Erythrocyte distribution width (RBC) [Ratio] 13.0 % Normal 11.0-15.0 [facility] Comment on above: Performed By: #### C BC #### [facility] [address] [place] [address] Dr. Amy Carrion Hematocrit (Bld) [Volume fraction] 25.2 % Critically low 36.0-48.0 [facility] Comment on above: Performed By: #### C BC #### [facility] [address] [place] [address] Dr. Amy Carrion Hemoglobin (Bld) [Mass/Vol] 8.2 g/dL Critically low 12.0-16.0 [facility] Comment on above: Result Comment: Post Performed By: #### C BC #### [facility] [address] [place] [address] Dr. Amy Carrion IG # 0.27 10e3/ul Critically high 0.00-0.03 [facility] Comment on above: Performed By: #### C BC #### [facility] [address] [place] [address] Dr. Amy Carrion IG % 1.3 % Critically high 0.0-0.5 [facility] Comment on above: Performed By: #### C BC #### [facility] [address] [place] [address] Dr. Amy Carrion LYMPH # 2.3 103/ul Normal 1.2-3.8 [facility] Comment on above: Performed By: #### C BC #### [facility] [address] [place] [address] Dr. Amy Carrion Lymphocytes/100 WBC (Bld) 10.8 % Critically low 20.5-60.0 [facility] Comment on above: Performed By: #### C BC #### [facility] [address] [address] [address] Amy Carrion MANUAL DIFF REQ NO Normal [facility] Comment on above: Performed By: #### C BC #### [facility] [address] [place] [address] Dr. Amy Carrion MCH (RBC) [Entitic mass] 30.6 pg Normal 26.7-34.0 [facility] Comment on above: Performed By: #### C BC #### [facility] [address] [place] [address] Dr. Amy Carrion MCHC (RBC) [Mass/Vol] 32.5 g/dL Normal 29.9-35.2 [facility] Comment on above: Performed By: #### C BC #### [facility] [address] [place] [address] Dr. Amy Carrion MCV (RBC) [Entitic vol] 94.0 fL Normal 81.0-99.0 [facility] Comment on above: Performed By: #### C BC #### [facility] [address] [place] [address] Dr. Amy Carrion MONO # 1.8 103/ul Critically high 0.3-0.8 [facility] Comment on above: Performed By: #### C BC #### [facility] [address] [place] [address] Dr. Amy Carrion Monocytes/100 WBC (Bld) 8.4 % Normal 1.7-12.0 [facility] Comment on above: Performed By: #### C BC #### [facility] [address] [place] [address] Dr. Amy Carrion NEUT # 16.7 103/ul Critically high 1.4-6.5 [facility] Comment on above: Performed By: #### C BC #### [facility] [address] [place] [address] Dr. Amy Carrion Neutrophils/100 WBC (Bld) 79.4 % Critically high 43.0-75.0 [facility] Comment on above: Performed By: #### C BC #### [facility] [address] [place] [address] Dr. Amy Carrion Platelet mean volume (Bld) [Entitic vol] 10.9 fL Normal 9.5-13.5 [facility] Comment on above: Performed By: #### C BC #### [facility] [address] [address] [address] Amy Carrion PLT 167 103/ul Normal 150-450 [facility] Comment on above: Performed By: #### C BC #### [facility] [address] [address] [address] Amy Carrion RBC 2.68 106/ul Critically low 4.20-5.40 [facility] Comment on above: Performed By: #### C BC #### [facility] [address] [place] [address] Dr. Amy Carrion WBC 21.0 103/ul Critically high 4.0-11.0 [facility] Comment on above: Performed By: #### C BC #### [facility] [address] [address] [address] Amy Carrion ASYMPTOMATIC COVID-19 ANTIGE Non 12-24-2021 EUA Statement SEE BELOW Normal [facility] Comment on above: Result Comment: This [...] sooner. Performed By: #### C VDAGA #### [facility] [address] [place] [address] Dr. Amy Carrion SARS-CoV-2 (COVID-19) RNA KERA+probe Ql (Unsp spec) Negative Normal NEGATIVE [facility] Comment on above: Result Comment: Nega tive results are presumptive. They do not preclude infection and should not be used as the sole basis for treatment decisions. Additional confirmatory testing by a molecular method should be considered. Performed By: #### C DALLASAGA #### [facility] [address] [place] [address] Dr. Amy Carrion CBC W MANUAL DIFFon 12-24-19 22 ATYPICAL LYMPH # Normal [facility] Comment on above: Performed By: #### C NOMAN #### [facility] [address] [place] [address] Dr. Amy Carrion ATYPICAL LYMPH % Normal [facility] Comment on above: Performed By: #### C NOMAN #### [facility] [address] [place] [address] Dr. Amy Carrion BAND # 0.3 103/ul Normal 0.0-0.3 [facility] Comment on above: Performed By: #### C NOMAN #### [facility] [address] [place] [address] Dr. Amy Carrion BAND % 2 % Normal 0-5 [facility] Comment on above: Performed By: #### C NOMAN #### [facility] [address] [place] [address] Dr. Amy Carrion BASOM # 0.00 103/ul Normal 0.00-0.10 [facility] Comment on above: Performed By: #### C NOMAN #### [facility] [address] [place] [address] Dr. Amy Carrion BASOM % 0.0 % Critically low 0.2-2.0 [facility] Comment on above: Performed By: #### C NOMAN #### [facility] [address] [place] [address] Dr. Amy Carrion BLAST # Normal [facility] Comment on above: Performed By: #### C NOMAN #### [facility] [address] [place] [address] Dr. Amy Carrion BLAST % Normal [facility] Comment on above: Performed By: #### C NOMAN #### [facility] [address] [address] [address] Amy Carrion CORRECTED WBC Normal 4.0-11.0 [facility] Comment on above: Performed By: #### C NOMAN #### [facility] [address] [address] [address] Amy Carrion EOS # 0.00 103/ul Normal 0.00-0.70 [facility] Comment on above: Performed By: #### C NOMAN #### [facility] [address] [place] [address] Dr. Amy Carrion EOS% 0.0 % Critically low 0.9-7.0 [facility] Comment on above: Performed By: #### C NOMAN #### [facility] [address] [place] [address] Dr. Amy Carrion HCT 36.0 % Normal 36.0-48.0 [facility] Comment on above: Performed By: #### C NOMAN #### [facility] [address] [place] [address] Dr. Amy Carrion HGB 12.2 g/dl Normal 12.0-16.0 [facility] Comment on above: Performed By: #### C NOMAN #### [facility] [address] [place] [address] Dr. Amy Carrion LYMPHM # 1.56 103/ul Normal 1.20-3.80 [facility] Comment on above: Performed By: #### C NOMAN #### [facility] [address] [place] [address] Dr. Amy Carrion LYMPHM% 9.0 % Critically low 20.5-60.0 [facility] Comment on above: Performed By: #### C NOMAN #### [facility] [address] [place] [address] Dr. Amy Carrion MCH 30.8 pg Normal 26.7-34.0 [facility] Comment on above: Performed By: #### C NOMAN #### [facility] [address] [place] [address] Dr. Amy Carrion MCHC 33.9 g/dl Normal 29.9-35.2 [facility] Comment on above: Performed By: #### C BCMAN #### [facility] [address] [place] [address] Dr. Amy Carrion MCV 90.9 fL Normal 81.0-99.0 [facility] Comment on above: Performed By: #### C BCMAN #### [facility] [address] [place] [address] Dr. Amy Carrion METAMYELOCYTE # Normal [facility] Comment on above: Performed By: #### C BCMAN #### [facility] [address] [place] [address] Dr. Amy Carrion METAMYELOCYTE % Normal [facility] Comment on above: Performed By: #### C BCMAN #### [facility] [address] [place] [address] Dr. Amy Carrion MONOM# 0.86 103/ul Critically high 0.30-0.80 [facility] Comment on above: Performed By: #### C BCMAN #### [facility] [address] [place] [address] Dr. Amy Carrion MONOM% 5.0 % Normal 1.7-12.0 [facility] Comment on above: Performed By: #### C BCMAN #### [facility] [address] [place] [address] Dr. Amy Carrion MPV 11.1 fL Normal 9.5-13.5 [facility] Comment on above: Performed By: #### C BCMAN #### [facility] [address] [place] [address] Dr. Amy Carrion MYELOCYTE # Normal [facility] Comment on above: Performed By: #### C BCMAN #### [facility] [address] [place] [address] Dr. Amy Carrion MYELOCYTE % Normal [facility] Comment on above: Performed By: #### C BCMAN #### [facility] [address] [place] [address] Dr. Amy Carrion NRBC Normal [facility] Comment on above: Performed By: #### Luzmaria TINEO #### [facility] [address] [address] [address] Amy Carrion PLT 203 103/ul Normal 150-450 [facility] Comment on above: Performed By: #### C NOMAN #### [facility] [address] [address] [address] Amy Carrion RBC 3.96 106/ul Critically low 4.20-5.40 [facility] Comment on above: Performed By: #### C NOMAN #### [facility] [address] [address] [address] Amy Carrion RDW 12.7 % Normal 11.0-15.0 [facility] Comment on above: Performed By: #### Luzmaria TINEO #### [facility] [address] [address] [address] Amy Carrion SEG # 14.53 103/ul Critically high 1.40-6.50 [facility] Comment on above: Performed By: #### Luzmaria TINEO #### [facility] [address] [address] [address] Amy Carrion SEG % 84.0 % Critically high 43.0-75.0 [facility] Comment on above: Performed By: #### Luzmaria TINEO #### [facility] [address] [address] [address] Amy Carrion WBC 17.3 103/ul Critically high 4.0-11.0 [facility] Comment on above: Performed By: #### Luzmaria TINEO #### [facility] [address] [place] [address] Dr. Amy Carrion DRUG SCREEN RAPID (URINE)on 12-24-2021 AMP Negative Normal NEGATIVE [facility] Comment on above: Performed By: #### D RUGCHUCK #### [facility] [address] [place] [address] Dr. Amy Carrion BAR Negative Normal NEGATIVE [facility] Comment on above: Performed By: #### Leah ROSS #### [facility] [address] [place] [address] Dr. Amy Carrion BUP Negative Normal NEGATIVE [facility] Comment on above: Performed By: #### D RUGRPD #### [facility] [address] [address] [address] Amy Carrion BZO Negative Normal NEGATIVE [facility] Comment on above: Performed By: #### D RUGRPD #### [facility] [address] [address] [address] Amy Carrion MARISSA Negative Normal NEGATIVE [facility] Comment on above: Performed By: #### D RUGRPD #### [facility] [address] [address] [address] Amy Carrion CUT-OFFS SEE BELOW Normal [facility] Comment on above: Result Comment: AMP [...] ng/mL Performed By: #### D RUGRPD #### [facility] [address] [place] [address] Dr. Amy Carrion DRUG CUT HEADER DRUG CLASS TEST SYSTEM CUT-OFF CONCENTRATIONS ARE FOLLOWS: Normal [facility] Comment on above: Performed By: #### D RUGRPD #### [facility] [address] [address] [address] Amy Carrion mAMP Negative Normal NEGATIVE [facility] Comment on above: Performed By: #### D RUGRPD #### [facility] [address] [place] [address] Dr. Amy Carrion MTD Negative Normal NEGATIVE [facility] Comment on above: Performed By: #### D RUGRPD #### [facility] [address] [place] [address] Dr. Amy Carrion OPI Negative Normal NEGATIVE [facility] Comment on above: Performed By: #### D RUGRPD #### [facility] [address] [place] [address] Dr. Amy Carrion OXY Negative Normal NEGATIVE [facility] Comment on above: Performed By: #### D RUGRPD #### [facility] [address] [place] [address] Dr. Amy Carrion PCP Negative Normal NEGATIVE [facility] Comment on above: Performed By: #### D RUGRPD #### [facility] [address] [place] [address] Dr. Amy Carrion PPX Negative Normal NEGATIVE [facility] Comment on above: Performed By: #### D RUGRPD #### [facility] [address] [place] [address] Dr. Amy Carrion TCA Negative Normal NEGATIVE [facility] Comment on above: Performed By: #### D RUGRPD #### [facility] [address] [place] [address] Dr. Amy Carrion THC Negative Normal NEGATIVE [facility] Comment on above: Performed By: #### D RUGRPD #### [facility] [address] [place] [address] Dr. Amy Carrion TYPE AND SCREENon 12-24-2021 TYPE AND SCREEN Negative Normal [facility] Comment on above: Performed By: #### G TT3P #### [facility] [address] [place] [address] Dr. Amy Carrion US PREG BIOPHY W [...] profile score: 8.0 Electronically authenticated by: MARIELLA Vyas: 2021-12-22 10:47 Normal [facility] US PREG GROWTHon 12-22-2021 US PREG [...] by: MARIELLA WHITEHEAD Date: 2021-12-22 10:49 Normal [facility] GROUP B STREP CULTUREon S. agalactiae [...] S F Tetracycline >=16 R F Normal [facility] Comment on above: Performed By: #### G TT3P #### [facility] [address] [address] [address] Amy Carrion GTT 3 HR PREGon 11-07-2021 Glucose [Mass/Vol] 91 mg/dL Normal 74-106 [facility] Comment on above: Performed By: #### G TT3P #### [facility] [address] [place] [address] Dr. Amy Carrion Glucose [Mass/Vol] 172 mg/dL Normal [facility] Comment on above: Performed By: #### G TT3P #### [facility] [address] [place] [address] Dr. Amy Carrion Glucose [Mass/Vol] 134 mg/dL Normal [facility] Comment on above: Performed By: #### G TT3P #### [facility] [address] [place] [address] Dr. Amy Carrion Glucose [Mass/Vol] 117 mg/dL Normal [facility] Comment on above: Performed By: #### G TT3P #### [facility] [address] [place] [address] Dr. Amy Carrion HEPATITIS C ANTIBODYon 10-27 Hep C Virus Ab 0.2 s/co ratio Normal 0.0-0.9 [facility] Comment on above: Result Comment: Nega tive: < 0.8 Indeterminate: 0.8 - 0.9 Positive: > 0.9 . The CDC recommends that a positive HCV antibody result be followed up with a HCV Nucleic Acid Amplification test (817064). Performed By: #### G TT3P #### [facility] [address] [place] [address] Dr. Amy Carrino HIV 1 AND 2 WITH REFLEXon HIV Screen 4th Generation wRfx Non-Reactive Normal Non Reactive [facility] Comment on above: Performed By: #### H IV12 #### [facility] [address] [place] [address] Dr. Amy Carrion GLUCOSE - 1HRon 10-26-2021 Glucose [Mass/Vol] 142 mg/dL Critically high 74-106 [place] Comment on above: Performed By: #### G LU1HR #### [facility] [address] [place] [address] Dr. Amy Carrion HEMOGRAM AND PLATELon 2020 Hematocrit (Bld) [Volume fraction] 32.8 % Critically low 36.0-48.0 [facility] Comment on above: Performed By: #### H H #### [facility] [address] [place] [address] Dr. Amy Carrion Hemoglobin (Bld) [Mass/Vol] 10.7 g/dL Critically low 12.0-16.0 [facility] Comment on above: Performed By: #### H H #### [facility] [address] [place] [address] Dr. Amy Carrion MCH (RBC) [Entitic mass] 30.6 pg Normal 26.7-34.0 [facility] Comment on above: Performed By: #### H H #### [facility] [address] [place] [address] Dr. Amy Carrion MCHC (RBC) [Mass/Vol] 32.6 g/dL Normal 29.9-35.2 [facility] Comment on above: Performed By: #### H H #### [facility] [address] [place] [address] Dr. Amy Carrion MCV (RBC) [Entitic vol] 93.7 fL Normal 81.0-99.0 [facility] Comment on above: Performed By: #### H H #### [facility] [address] [place] [address] Dr. Amy Carrion PLT 197 103/ul Normal 150-450 [facility] Comment on above: Performed By: #### H H #### [facility] [address] [place] [address] Dr. Amy Carrion RBC 3.50 106/ul Critically low 4.20-5.40 [facility] Comment on above: Performed By: #### H H #### [facility] [address] [place] [address] Dr. Amy Carrion WBC 12.4 103/ul Critically high 4.0-11.0 [facility] Comment on above: Performed By: #### H H #### [facility] [address] [address] [address] Amy Carrion Vital Signs Date Time Vital Sign Value Performing Clinician Faci lity 01-02-2024 11:26-0500 Body mass index (BMI) [Ratio] 33.62 kg/m2 Janina DAY Work Phone: [facility] 01-02-2024 11:26-050 Body weight 83.37 kg Janina DAY Work Phone: [facility] 01-02-2024 11:26-0500 Diastolic blood pressure 74 mm[Hg] Janina DAY Work Phone: [facility] 01-02-2024 11:26-0500 Systolic blood pressure 122 mm[Hg] Janina DAY Work Phone: [facility] Encounters Encounter Date Encounter Type Care Provider Facility Start: 05-13-2024 End: 05-13-2024 ambulatory ASHOK ANUEL Not Available Start: 04-29-2024 End: 04-29-2024 ambulatory JANINA LLUVIA [...] 01-02-2024 flow sheet Janina DAY Work Phone: [facility] Comment on above: Second [...] Conception, Low Cervical, Open Approach DR TRAY MLILS Plan of Treatment Date Care Activity Detail Author Start: 06-30-2024 End: 06-30-2024 Patient encounter procedure 06/30/2024 2:00 PM EDT Office Visit [facility] [address] [place] [address] Ashok Bose, DO [address] [place], [place] [id number] [facility] Start: 02-03-2024 End: 02-03-2024 Patient encounter procedure 02/03/2024 1:50 PM EDT Routine [facility] [address] [place] [address] Ashok Bose, DO [address] [place] [address] [place] [address] [facility] Payers Date Payer Category Payer Unknown BCBS BCBS [id number] 2023-Present [phone] [address] [place] [address] [id number] 2023 Unknown [id number] 1997 Unknown [id number] 2.16.840.1.559064.3.579.2.593 1997 Unknown [id number] 2.16.840.1.571363.3.579.2.593 1997 Unknown [id number] 2.16.840.1.665245.3.579.2.593 1997 Unknown [id number] 2.16.840.1.570098.3.579.2.593 1997 Unknown [id number] 2.16.840.1.886121.3.579.2.593 1997 Unknown [id number] 2.16.840.1.259347.3.579.2.593 1997 Unknown [id number] 2.16.840.1.982378.3.579.2.593 1997 Unknown [id number] 2.16.840.1.669687.3.579.2.593 1997 Unknown [id number] 2.16.840.1.671060.3.579.2.1259 1997 Unknown [id number] 2.16.840.1.682824.3.579.2.1259 1997 Unknown [id number] 2.16.840.1.932947.3.579.2.1259 1997 Unknown [id number] 2.16.840.1.343626.3.579.2.9 1997 Unknown [id number] 2.16.840.1.136897.3.579.2.9 1997 Unknown [id number] 2.16.840.1.060291.3.579.2.9 1997 Unknown [id number] 2.16.840.1.880521.3.579.2.9 1997 Unknown [id number] 2.16.840.1.098574.3.579.2.9 1997 Unknown [id number] 2.16.840.1.912018.3.579.2.9 1997 Unknown [id number] 2.16.840.1.915023.3.579.2.9 1997 Unknown [id number] 2.16.840.1.122765.3.579.2.9 1959 Self-pay 1957 Unknown [id number] Social History Date Type Detail Facility Tobacco smoking stat [facility] Tobacco smoking consumption unknown [facility] Start: 08-16-2023 [facility] Start: 1997 Sex Assigned At Not on file [facility] Gender identity Not on file [facility] History of Present illness Narrative 01-02-2024 SHAY Flores - 01/02/2024 11:20 AM EST Note Date & Type Note Facility 01-02-2024 History of Presen t illness Narrative Reason for Appointment: Patient ID: Mrecedes Bliss is a 28 y.o. female who presents [...] pital DATE CREATED AUTHOR AUTHOR'S ORGANRAUL ATION 05/15/2024 [facility] EP[facility] Reason for Visit (unrecogniz ed [...] BE BASED ON THE PRIMARY CLINICAL RECORDS. [facility] [employer] provides no warranty or guarantee of the accuracy or completeness of information in this document.
--- NOTE | 2024-06-09 12:31 | PC.NURSE ---
Suzi and Wu arrive for support. had oral revision 06/05/[address] Long. States has noted improvement but continues to have frequent hiccups, gassy and occ shallow latch. assessed, has weak suck on gloved finger, easily pull out finger, no tug of war noted. Baby has limited curl of tongue or lateralization until suck exercises initiated. noted to attempt to lateralize tongue both left and right. upper lip massage demo'd with , as well as pterygoid stretch and cheek massage. After these now improved with tug of war and tongue curl. Mom also shown hip rocks, ribcage rocking and sacral massage for relaxation. Infant pleasant and engaged with exercises. Mom states confident she can perform these as well. Wll continue to work with and reach out to LC as needed.
== END 2024-06-09 10:15 | disposition home or self-care (01) ==
LOC: FBCO 08:22
PROVIDERS: Visit Provider Obstetrics & Gynecology
DX: Z39.1 Encounter for care and examination of lactating mother (principal)
CPT/HCPCS: G0463

== ENCOUNTER 2024-08-20 19:22 | Outpatient (REF) | payer BC, SELFPAY ==
--- OUTSIDE RECORDS SUMMARY | 2024-08-20 19:26 | XMS_ITS | CCD ---
Author Organization [facility] Care Team Providers Care [employer] Operator Name Role Phone OMAR, DR FELIZ Attending Unavailable KARASIK, DR FELIZ Admitting Unavailable ANUEL, DR PULIDO Attending Unavailable ANUEL, DR PULIDO Consulting Unavailable ANUEL, DR PULIDO Admitting Unavailable ANUEL, DR PULIDO Attending Unavailable ANULE, DR PULIDO Consulting Unavailable ANUEL, DR PULIDO [...] Unavailable Unavailable Primary Care Provider Unavailabl e ASOHK BOSE Attending Unavailable LLUVIAJANINA MCALLISTER Attending Unavailable ANUELASHOK Attending Unavailable ANUELASHOK HERNANDEZ Attending Unavailable JANINA TEIXEIRA Attending Unavailable ANUELASHOK Attending Unavailable ANUEL, ASHOK Attending Unavailable LLUVIA JANINA Attending Unavailable ANUEL, SAHOK Attending Unavailable ANUELASHOK Attending Unavailable LLUVIA, JANINA [...] UA Negative Negative - 4(70) +++ mg/dL [facility] Blood, UA Negative Negative - 50 Nathan/mcL [facility] Clarity, UA Clear [facility] re Color, UA Yellow [facility] e Glucose, UA Negative Negative - 1999(110) ++++ mg/dL [facility] Interpretation and review of laboratory results Abnormal [facility] Ketones, UA Negative Negative - 160(16) ++++ mg/dL [facility] Leukocytes, UA Negative Negative - 500+++ Isha/mcL [facility] Nitrite, UA Negative Negative - Positive [facility] pH, UA 7.0 5 - 9 [facility] e Protein, UA Positive Negative - 1999(20) ++++ mg/dL [facility] Spec Grav, UA 1.020 1 - 1.03 [facility] Urobilinogen, UA 0.2 0.2 - 12 mg/[facility] W [facility]UAL DIFFon 12-26-19 22 ATYPICAL LYMPH # Normal [facility] Comment on above: Performed By: #### C NOMAN #### [facility] [address] [place] [address] Dr. Amy Carrion ATYPICAL LYMPH % Normal [facility] Comment on above: Performed By: #### C NOMAN #### [facility] [address] [address] [address] Amy Carrion BAND # 0.4 103/ul Critically high 0.0-0.3 [facility] Comment on above: Performed By: #### C NOMAN #### [facility] [address] [place] [address] Dr. Amy Carrion BAND % 3 % Normal 0-5 [facility] Comment on above: Performed By: #### C NOMAN #### [facility] [address] [place] [address] Dr. Amy Carrion BASOM # 0.00 103/ul Normal 0.00-0.10 [facility] Comment on above: Performed By: #### C NOMAN #### [facility] [address] [place] [address] Dr. Amy Carrion BASOM % 0.0 % Critically low 0.2-2.0 [facility] Comment on above: Performed By: #### C NOMAN #### [facility] [address] [place] [address] Dr. Amy Carrion BLAST # Normal [facility] Comment on above: Performed By: #### C NOMAN #### [facility] [address] [place] [address] Dr. Amy Carrion BLAST % Normal [facility] Comment on above: Performed By: #### C NOMAN #### [facility] [address] [place] [address] Dr. Amy Carrion CORRECTED WBC Normal 4.0-11.0 [facility] Comment on above: Performed By: #### C NOMAN #### [facility] [address] [address] [address] Amy Carrion EOS # 0.00 103/ul Normal 0.00-0.70 [facility] Comment on above: Performed By: #### C NOMAN #### [facility] [address] [place] [address] Dr. Amy Carrion EOS% 0.0 % Critically low 0.9-7.0 [facility] Comment on above: Performed By: #### C NOMAN #### [facility] [address] [place] [address] Dr. Amy Carrion HCT 24.9 % Critically low 36.0-48.0 [facility] Comment on above: Performed By: #### C NOMAN #### [facility] [address] [place] [address] Dr. Amy Carrion HGB 8.0 g/dl Critically low 12.0-16.0 [facility] Comment on above: Performed By: #### Luzmaria TINEO #### [facility] [address] [place] [address] Dr. Amy Carrion LYMPHM # 3.06 103/ul Normal 1.20-3.80 [facility] Comment on above: Performed By: #### C NOMAN #### [facility] [address] [place] [address] Dr. Amy Carrion LYMPHM% 22.0 % Normal 20.5-60.0 [facility] Comment on above: Performed By: #### C NOMAN #### [facility] [address] [place] [address] Dr. Amy aCrrion MCH 30.8 pg Normal 26.7-34.0 [facility] Comment on above: Performed By: #### Luzmaria TINEO #### [facility] [address] [place] [address] Dr. Amy Carrion MCHC 32.1 g/dl Normal 29.9-35.2 [facility] Comment on above: Performed By: #### Luzmaria TINEO #### [facility] [address] [place] [address] Dr. Amy Carrion MCV 95.8 fL Normal 81.0-99.0 [facility] Comment on above: Performed By: #### C BCMAN #### [facility] [address] [place] [address] Dr. Amy Carrion METAMYELOCYTE # Normal [facility] Comment on above: Performed By: #### C BCKAM #### [facility] [address] [place] [address] Dr. Amy Carrion METAMYELOCYTE % Normal [facility] Comment on above: Performed By: #### C BCMAN #### [facility] [address] [address] [address] Amy Carrion MONOM# 1.25 103/ul Critically high 0.30-0.80 [facility] Comment on above: Performed By: #### C NOMAN #### [facility] [address] [place] [address] Dr. Amy Carrion MONOM% 9.0 % Normal 1.7-12.0 [facility] Comment on above: Performed By: #### C BCMAN #### [facility] [address] [place] [address] Dr. Amy Carrion MPV 11.0 fL Normal 9.5-13.5 [facility] Comment on above: Performed By: #### C NOMAN #### [facility] [address] [place] [address] Dr. Amy Carrion MYELOCYTE # Normal [facility] Comment on above: Performed By: #### C NOMAN #### [facility] [address] [place] [address] Dr. Amy Carrion MYELOCYTE % Normal [facility] Comment on above: Performed By: #### C NOMAN #### [facility] [address] [place] [address] Dr. Amy Carrion NRBC Normal [facility] Comment on above: Performed By: #### C BCMAN #### [facility] [address] [place] [address] Dr. Amy Carrion PLT 170 103/ul Normal 150-450 [facility] Comment on above: Performed By: #### C BCKAM #### [facility] [address] [address] [address] Amy Carrion RBC 2.60 106/ul Critically low 4.20-5.40 [facility] Comment on above: Performed By: #### C NOMAN #### [facility] [address] [address] [address] Amy Carrion RDW 13.1 % Normal 11.0-15.0 [facility] Comment on above: Performed By: #### C NOMAN #### [facility] [address] [place] [address] Dr. Amy Carrion SEG # 9.17 103/ul Critically high 1.40-6.50 [facility] Comment on above: Performed By: #### C NOMAN #### [facility] [address] [place] [address] Dr. Amy Carrion SEG % 66.0 % Normal 43.0-75.0 [facility] Comment on above: Performed By: #### C NOMAN #### [facility] [address] [place] [address] Dr. Amy Carrion WBC 13.9 103/ul Critically high 4.0-11.0 [facility] Comment on above: Performed By: #### C NOMAN #### [facility] [address] [place] [address] Dr. Amy Carrion CBC AUTO DIFFon 12-25-2021 BASO # 0.0 103/ul Normal 0.0-0.1 [facility] Comment on above: Performed By: #### C BC #### [facility] [address] [place] [address] Dr. Amy Cariron Basophils/100 WBC (Bld) 0.1 % Critically low 0.2-2.0 [facility] Comment on above: Performed By: #### C BC #### [facility] [address] [place] [address] Dr. Amy Carrion EO # 0.0 103/ul Normal 0.0-0.7 [facility] Comment on above: Performed By: #### C BC #### [facility] [address] [place] [address] Dr. Amy Carrion Eosinophils/100 WBC (Bld) 0.0 % Critically low 0.9-7.0 [facility] Comment on above: Performed By: #### C BC #### [facility] [address] [place] [address] Dr. Amy Carrion Erythrocyte distribution width (RBC) [Ratio] 13.0 % Normal 11.0-15.0 [facility] Comment on above: Performed By: #### C BC #### [facility] [address] [place] [address] Dr. Amy Carrion Hematocrit (Bld) [Volume fraction] 25.2 % Critically low 36.0-48.0 [facility] Comment on above: Performed By: #### C BC #### [facility] [address] [place] [address] Dr. Amy Carrion Hemoglobin (Bld) [Mass/Vol] 8.2 g/dL Critically low 12.0-16.0 [facility] Comment on above: Result Comment: Post Performed By: #### C BC #### [facility] [address] [place] [address] Dr. Amy Carrion IG # 0.27 10e3/ul Critically high 0.00-0.03 [facility] Comment on above: Performed By: #### C BC #### [facility] [address] [place] [address] Dr. Amy Carrion IG % 1.3 % Critically high 0.0-0.5 [facility] Comment on above: Performed By: #### C BC #### [facility] [address] [place] [address] Dr. Amy Carrion LYMPH # 2.3 103/ul Normal 1.2-3.8 [facility] Comment on above: Performed By: #### C BC #### [facility] [address] [place] [address] Dr. Amy Carrion Lymphocytes/100 WBC (Bld) 10.8 % Critically low 20.5-60.0 [facility] Comment on above: Performed By: #### C BC #### [facility] [address] [address] [address] Amy Carrion MANUAL DIFF REQ NO Normal [facility] Comment on above: Performed By: #### C BC #### [facility] [address] [place] [address] Dr. Amy Carrion MCH (RBC) [Entitic mass] 30.6 pg Normal 26.7-34.0 [facility] Comment on above: Performed By: #### C BC #### [facility] [address] [place] [address] Dr. Amy Carrion MCHC (RBC) [Mass/Vol] 32.5 g/dL Normal 29.9-35.2 [facility] Comment on above: Performed By: #### C BC #### [facility] [address] [place] [address] Dr. Amy Carrion MCV (RBC) [Entitic vol] 94.0 fL Normal 81.0-99.0 [facility] Comment on above: Performed By: #### C BC #### [facility] [address] [place] [address] Dr. Amy Carrion MONO # 1.8 103/ul Critically high 0.3-0.8 [facility] Comment on above: Performed By: #### C BC #### [facility] [address] [place] [address] Dr. Amy Carrion Monocytes/100 WBC (Bld) 8.4 % Normal 1.7-12.0 [facility] Comment on above: Performed By: #### C BC #### [facility] [address] [place] [address] Dr. Amy Carrion NEUT # 16.7 103/ul Critically high 1.4-6.5 [facility] Comment on above: Performed By: #### C BC #### [facility] [address] [place] [address] Dr. Amy Carrion Neutrophils/100 WBC (Bld) 79.4 % Critically high 43.0-75.0 [facility] Comment on above: Performed By: #### C BC #### [facility] [address] [place] [address] Dr. Amy Carrion Platelet mean volume (Bld) [Entitic vol] 10.9 fL Normal 9.5-13.5 [facility] Comment on above: Performed By: #### C BC #### [facility] [address] [address] [address] Amy Carrion PLT 167 103/ul Normal 150-450 [facility] Comment on above: Performed By: #### C BC #### [facility] [address] [address] [address] Amy Carrion RBC 2.68 106/ul Critically low 4.20-5.40 [facility] Comment on above: Performed By: #### C BC #### [facility] [address] [place] [address] Dr. Amy Carrion WBC 21.0 103/ul Critically high 4.0-11.0 [facility] Comment on above: Performed By: #### C BC #### [facility] [address] [address] [address] Amy Carrion ASYMPTOMATIC COVID-19 ANTIGE Non 12-24-2021 EUA Statement SEE BELOW Normal [facility] Comment on above: Result Comment: [...] sooner. Performed By: #### C VDAGA #### [facility] [address] [place] [address] Dr. Amy Carrion SARS-CoV-2 (COVID-19) RNA KERA+probe Ql (Unsp spec) Negative Normal NEGATIVE [facility] Comment on above: Result Comment: Nega tive results are presumptive. They do not preclude infection and should not be used as the sole basis for treatment decisions. Additional confirmatory testing by a molecular method should be considered. Performed By: #### C DALLASAGA #### [facility] [address] [place] [address] Dr. Amy Carrion CBC W MANUAL DIFFon 12-24-19 22 ATYPICAL LYMPH # Normal [facility] Comment on above: Performed By: #### C NOMAN #### [facility] [address] [place] [address] Dr. Amy Carrion ATYPICAL LYMPH % Normal [facility] Comment on above: Performed By: #### C NOMAN #### [facility] [address] [place] [address] Dr. Amy Carrion BAND # 0.3 103/ul Normal 0.0-0.3 [facility] Comment on above: Performed By: #### C NOMAN #### [facility] [address] [place] [address] Dr. Amy Carrion BAND % 2 % Normal 0-5 [facility] Comment on above: Performed By: #### C NOMAN #### [facility] [address] [place] [address] Dr. Amy Carrion BASOM # 0.00 103/ul Normal 0.00-0.10 [facility] Comment on above: Performed By: #### C NOMAN #### [facility] [address] [place] [address] Dr. Amy Carrion BASOM % 0.0 % Critically low 0.2-2.0 [facility] Comment on above: Performed By: #### C NOMAN #### [facility] [address] [place] [address] Dr. Amy Carrion BLAST # Normal [facility] Comment on above: Performed By: #### C NOMAN #### [facility] [address] [place] [address] Dr. Amy Carrion BLAST % Normal [facility] Comment on above: Performed By: #### C NOMAN #### [facility] [address] [address] [address] Amy Cariron CORRECTED WBC Normal 4.0-11.0 [facility] Comment on above: Performed By: #### C NOMAN #### [facility] [address] [address] [address] Amy Carrion EOS # 0.00 103/ul Normal 0.00-0.70 [facility] Comment on above: Performed By: #### C NOMAN #### [facility] [address] [place] [address] Dr. Amy Carrion EOS% 0.0 % Critically low 0.9-7.0 [facility] Comment on above: Performed By: #### C NOMAN #### [facility] [address] [place] [address] Dr. Amy Carrion HCT 36.0 % Normal 36.0-48.0 [facility] Comment on above: Performed By: #### C NOMAN #### [facility] [address] [place] [address] Dr. Amy Carrion HGB 12.2 g/dl Normal 12.0-16.0 [facility] Comment on above: Performed By: #### C NOMAN #### [facility] [address] [place] [address] Dr. Amy Carrion LYMPHM # 1.56 103/ul Normal 1.20-3.80 [facility] Comment on above: Performed By: #### C NOMAN #### [facility] [address] [place] [address] Dr. Amy Carrion LYMPHM% 9.0 % Critically low 20.5-60.0 [facility] Comment on above: Performed By: #### C NOMAN #### [facility] [address] [place] [address] Dr. Amy Carrion MCH 30.8 pg Normal 26.7-34.0 [facility] Comment on above: Performed By: #### C NOMAN #### [facility] [address] [place] [address] Dr. Amy Carrion MCHC 33.9 g/dl Normal 29.9-35.2 [facility] Comment on above: Performed By: #### C BCMAN #### [facility] [address] [place] [address] Dr. Amy Carrion MCV 90.9 fL Normal 81.0-99.0 [facility] Comment on above: Performed By: #### C BCMAN #### [facility] [address] [place] [address] Dr. Amy Carrion METAMYELOCYTE # Normal [facility] Comment on above: Performed By: #### C BCMAN #### [facility] [address] [place] [address] Dr. Amy Carrion METAMYELOCYTE % Normal [facility] Comment on above: Performed By: #### C BCMAN #### [facility] [address] [place] [address] Dr. Amy Carrion MONOM# 0.86 103/ul Critically high 0.30-0.80 [facility] Comment on above: Performed By: #### C BCMAN #### [facility] [address] [place] [address] Dr. Amy Carrion MONOM% 5.0 % Normal 1.7-12.0 [facility] Comment on above: Performed By: #### C BCMAN #### [facility] [address] [place] [address] Dr. Amy Carrion MPV 11.1 fL Normal 9.5-13.5 [facility] Comment on above: Performed By: #### C BCMAN #### [facility] [address] [place] [address] Dr. Amy Carrion MYELOCYTE # Normal [facility] Comment on above: Performed By: #### C BCMAN #### [facility] [address] [place] [address] Dr. Amy Carrion MYELOCYTE % Normal [facility] Comment on above: Performed By: #### C BCMAN #### [facility] [address] [place] [address] Dr. Amy Carrion NRBC Normal [facility] Comment on above: Performed By: #### Luzmaria TINEO #### [facility] [address] [address] [address] Amy Carrion PLT 203 103/ul Normal 150-450 [facility] Comment on above: Performed By: #### C NOMAN #### [facility] [address] [address] [address] Amy Carrion RBC 3.96 106/ul Critically low 4.20-5.40 [facility] Comment on above: Performed By: #### C NOMAN #### [facility] [address] [address] [address] Amy Carrion RDW 12.7 % Normal 11.0-15.0 [facility] Comment on above: Performed By: #### Luzmaria TINEO #### [facility] [address] [address] [address] Amy Carrion SEG # 14.53 103/ul Critically high 1.40-6.50 [facility] Comment on above: Performed By: #### Luzmaria TINEO #### [facility] [address] [address] [address] Amy Carrion SEG % 84.0 % Critically high 43.0-75.0 [facility] Comment on above: Performed By: #### Luzmaria TINEO #### [facility] [address] [address] [address] Amy Carrion WBC 17.3 103/ul Critically high 4.0-11.0 [facility] Comment on above: Performed By: #### Luzmaria TINEO #### [facility] [address] [place] [address] Dr. Amy Carrion DRUG SCREEN RAPID (URINE)on 12-24-2021 AMP Negative Normal NEGATIVE [facility] Comment on above: Performed By: #### D RUGCHUCK #### [facility] [address] [place] [address] Dr. Amy Carrion BAR Negative Normal NEGATIVE [facility] Comment on above: Performed By: #### Leah ROSS #### [facility] [address] [place] [address] Dr. Amy Carrion BUP Negative Normal NEGATIVE [facility] Comment on above: Performed By: #### D RUGRPD #### [facility] [address] [address] [address] Amy Carrion BZO Negative Normal NEGATIVE [facility] Comment on above: Performed By: #### D RUGRPD #### [facility] [address] [address] [address] Amy Carrion MARISSA Negative Normal NEGATIVE [facility] Comment on above: Performed By: #### D RUGRPD #### [facility] [address] [address] [address] Amy Carrion CUT-OFFS SEE BELOW Normal [facility] Comment on above: Result Comment: AMP [...] ng/mL Performed By: #### D RUGRPD #### [facility] [address] [place] [address] Dr. Amy Carrion DRUG CUT HEADER DRUG CLASS TEST SYSTEM CUT-OFF CONCENTRATIONS ARE FOLLOWS: Normal [facility] Comment on above: Performed By: #### D RUGRPD #### [facility] [address] [address] [address] Amy Carrion mAMP Negative Normal NEGATIVE [facility] Comment on above: Performed By: #### D RUGRPD #### [facility] [address] [place] [address] Dr. Amy Carrion MTD Negative Normal NEGATIVE [facility] Comment on above: Performed By: #### D RUGRPD #### [facility] [address] [place] [address] Dr. Amy Carrion OPI Negative Normal NEGATIVE [facility] Comment on above: Performed By: #### D RUGRPD #### [facility] [address] [place] [address] Dr. Amy Carrion OXY Negative Normal NEGATIVE [facility] Comment on above: Performed By: #### D RUGRPD #### [facility] [address] [place] [address] Dr. Amy Carrion PCP Negative Normal NEGATIVE [facility] Comment on above: Performed By: #### D RUGRPD #### [facility] [address] [place] [address] Dr. Amy Carrion PPX Negative Normal NEGATIVE [facility] Comment on above: Performed By: #### D RUGRPD #### [facility] [address] [place] [address] Dr. Amy Carrion TCA Negative Normal NEGATIVE [facility] Comment on above: Performed By: #### D RUGRPD #### [facility] [address] [place] [address] Dr. Amy Carrion THC Negative Normal NEGATIVE [facility] Comment on above: Performed By: #### D RUGRPD #### [facility] [address] [place] [address] Dr. Amy Carrion TYPE AND SCREENon 12-24-2021 TYPE AND SCREEN Negative Normal [facility] Comment on above: Performed By: #### G TT3P #### [facility] [address] [place] [address] Dr. Amy Carrion US PREG BIOPHY W [...] by: MARIELLA Vyas: 2021-12-22 10:47 Normal [facility] US PREG GROWTHon 12-22-2021 US [...] MARIELLA WHITEHEAD Date: 2021-12-22 10:49 Normal [facility] GROUP B STREP CULTUREon S. [...] F Tetracycline >=16 R F Normal [facility] Comment on above: Performed By: #### G TT3P #### [facility] [address] [address] [address] Amy Carrion GTT 3 HR PREGon 11-07-2021 Glucose [Mass/Vol] 91 mg/dL Normal 74-106 [facility] Comment on above: Performed By: #### G TT3P #### [facility] [address] [place] [address] Dr. Amy Carrion Glucose [Mass/Vol] 172 mg/dL Normal [facility] Comment on above: Performed By: #### G TT3P #### [facility] [address] [place] [address] Dr. Amy Carrion Glucose [Mass/Vol] 134 mg/dL Normal [facility] Comment on above: Performed By: #### G TT3P #### [facility] [address] [place] [address] Dr. Amy Carrion Glucose [Mass/Vol] 117 mg/dL Normal [facility] Comment on above: Performed By: #### G TT3P #### [facility] [address] [place] [address] Dr. Amy Carrion HEPATITIS C ANTIBODYon 10-27 Hep C Virus Ab 0.2 s/co ratio Normal 0.0-0.9 [facility] Comment on above: Result Comment: Nega tive: < 0.8 Indeterminate: 0.8 - 0.9 Positive: > 0.9 . The CDC recommends that a positive HCV antibody result be followed up with a HCV Nucleic Acid Amplification test (546581). Performed By: #### G TT3P #### [facility] [address] [place] [address] Dr. Amy Carrion HIV 1 AND 2 WITH REFLEXon HIV Screen 4th Generation wRfx Non-Reactive Normal Non Reactive [facility] Comment on above: Performed By: #### H IV12 #### [facility] [address] [place] [address] Dr. Amy Carrion GLUCOSE - 1HRon 10-26-2021 Glucose [Mass/Vol] 142 mg/dL Critically high 74-106 [facility] Comment on above: Performed By: #### G LU1HR #### [facility] [address] [place] [address] Dr. Amy Carrion HEMOGRAM AND PLATELon 2020 Hematocrit (Bld) [Volume fraction] 32.8 % Critically low 36.0-48.0 [facility] Comment on above: Performed By: #### H H #### [facility] [address] [place] [address] Dr. Amy Carrion Hemoglobin (Bld) [Mass/Vol] 10.7 g/dL Critically low 12.0-16.0 [facility] Comment on above: Performed By: #### H H #### [facility] [address] [place] [address] Dr. Amy Carrion MCH (RBC) [Entitic mass] 30.6 pg Normal 26.7-34.0 [facility] Comment on above: Performed By: #### H H #### [facility] [address] [place] [address] Dr. Amy Carrion MCHC (RBC) [Mass/Vol] 32.6 g/dL Normal 29.9-35.2 [facility] Comment on above: Performed By: #### H H #### [facility] [address] [place] [address] Dr. Amy Carrion MCV (RBC) [Entitic vol] 93.7 fL Normal 81.0-99.0 [facility] Comment on above: Performed By: #### H H #### [facility] [address] [place] [address] Dr. Amy Carrion PLT 197 103/ul Normal 150-450 [facility] Comment on above: Performed By: #### H H #### [facility] [address] [place] [address] Dr. Amy Carrion RBC 3.50 106/ul Critically low 4.20-5.40 [facility] Comment on above: Performed By: #### H H #### [facility] [address] [place] [address] Dr. Amy Carrion WBC 12.4 103/ul Critically high 4.0-11.0 [facility] Comment on above: Performed By: #### H H #### [facility] [address] [address] [address] Amy Carrion Vital Signs Date Time Vital Sign Value Performing Clinician Faci lity 01-02-2024 11:26-0500 Body mass index (BMI) [Ratio] 33.62 kg/m2 Janina DAY Work Phone: [facility] 01-02-2024 11:26-050 Body weight 83.37 kg Janina DAY Work Phone: [facility] 01-02-2024 11:26-0500 Diastolic blood pressure 74 mm[Hg] Janina DAY Work Phone: [facility] 01-02-2024 11:26-0500 Systolic blood pressure 122 mm[Hg] Janina DAY Work Phone: [facility] Encounters Encounter Date Encounter Type Care [...] 01-02-2024 flow sheet Janina DAY Work Phone: [facility] Comment on above: Second trimester [...] Visit [facility] [address] [place] [address] Ashok Bose, DO [address] [place], [place] [id number] [facility] Start: 02-03-2024 End: 02-03-2024 Patient encounter procedure 02/03/2024 1:50 PM EDT Routine [facility] [address] [place] [address] Ashok Bose, DO [address] [place] [address] [place] [address] [facility] Payers Date Payer Category Payer Unknown BCBS BCBS xxxxxx [id number] 2023-Present [phone] [address] [place] [address] [id number] 2023 Unknown [id number] 1997 Unknown [id number] 2.16.840.1.725916.3.579.2.593 1997 Unknown [id number] 2.16.840.1.757348.3.579.2.593 1997 Unknown [id number] 2.16.840.1.492793.3.579.2.593 1997 Unknown [id number] 2.16.840.1.009791.3.579.2.593 1997 Unknown [id number] 2.16.840.1.032438.3.579.2.593 1997 Unknown [id number] 2.16.840.1.360126.3.579.2.593 1997 Unknown [id number] 2.16.840.1.144704.3.579.2.593 1997 Unknown [id number] 2.16.840.1.322445.3.579.2.593 1997 Unknown [id number] 2.16.840.1.510349.3.579.2.1259 1997 Unknown [id number] 2.16.840.1.073646.3.579.2.1259 1997 Unknown [id number] 2.16.840.1.929615.3.579.2.1259 1997 Unknown [id number] 2.16.840.1.090487.3.579.2.9 1997 Unknown [id number] 2.16.840.1.736023.3.579.2.9 1997 Unknown [id number] 2.16.840.1.084213.3.579.2.9 1997 Unknown [id number] 2.16.840.1.753965.3.579.2.9 1997 Unknown [id number] 2.16.840.1.400387.3.579.2.9 1997 Unknown [id number] 2.16.840.1.044463.3.579.2.9 1997 Unknown [id number] 2.16.840.1.104901.3.579.2.9 1997 Unknown [id number] 2.16.840.1.972419.3.579.2.9 1959 Self-pay 1959 Unknown [id number] Social History Date Type Detail Facility Tobacco smoking stat [facility] Tobacco smoking consumption unknown [facility] Start: 08-16-2023 [facility] Start: [facility] Sex Assigned At Not on file [facility] Gender identity Not [facility] file [facility] History of Present illness Narrative 01-02-2024 SHAY Flores - 01/02/2024 11:20 AM EST Note Date & Type Note Facility 01-02-2024 History of Presen t illness Narrative Reason for Appointment: Patient ID: Mercedes Bliss is a 28 y.o. female who [...] and content) DATE CREATED AUTHOR 07/27/2022 [facility] DATE CREATED AUTHOR AUTHOR'S ORGANRAUL ATION 05/15/2024 [facility] EPIC Reason for Visit (unrecogniz [...] BE BASED ON THE PRIMARY CLINICAL RECORDS. [facility] [employer] provides no warranty or guarantee of the accuracy or completeness of information in this document.
== END 2024-08-20 19:23 | disposition home or self-care (01) ==
LOC: LAB 19:22
PROVIDERS: Visit Provider Obstetrics & Gynecology
DX: Z01.419 Encounter for gynecological examination (general) (routine) without abnormal findings (principal)
CPT/HCPCS: 88175

== ENCOUNTER 2025-09-06 21:10 | Outpatient (REF) | payer BC, SELFPAY ==
--- OUTSIDE RECORDS SUMMARY | 2025-09-06 21:14 | XMS_ITS | CCD ---
Author Organization [facility] Care Team Providers Care Emergency Management Program Specialist Name Role Phone OMAR, DR FELIZ Attending Unavailable KARASIK, DR FELIZ Admitting Unavailable LIDYA, DR PULIDO Attending Unavailable LIDYA, DR PULIDO Consulting Unavailable LIDYA, DR PULIDO Admitting Unavailable LIDYA, DR PULIDO Attending Unavailable LIDYA, DR PULIDO Consulting Unavailable LIDYA, DR PULIDO Admitting Unavailable LIDYA, DR PULIDO Attending Unavailable LIDYA, DR PULIDO Consulting Unavailable LIDYA, DR PULIDO Admitting Unavailable KARASIK, DR FELIZ Consulting Unavailable KARASIK, DR FELIZ Admitting Unavailable KARASIK, DR FELIZ Procedure Practitioner Unava ilable KARASIK, DR FELIZ Attending Unavailable LIDYA, DR PULIDO Consulting Unavailable AGUBOSIM, ANDRE Consulting Unavailable IOFFE-PARRIS, FRANCESCO Consulting Unavailab le KARASIK, DR FELIZ Consulting Unavailable KARASIK, DR FELIZ Admitting Unavailable KARASIK, DR FELIZ Attending Unavailable WEST, DR MARIELLA Ramirez Consulting Unavailable LIDYA, DR PULIDO Consulting Unavailable LIDYA, DR PULIDO Attending Unavailable LIDYA, DR PULIDO Admitting Unavailable LIDYA, DR PULIDO Attending Unavailable LIDYA, DR PULIDO Admitting Unavailable Unavailable Primary Care Provider Unavailabl e JANINA TEIXEIRA Attending Unavailable LIDYAASHOK Attending Unavailable JANINA TEIXEIRA Attending Unavailable LIDYAASHOK Attending Unavailable LLUVIAJANINA MCALLISTER Attending Unavailable LIDYA, ASHOK Attending Unavailable LIDYAASHOK Attending Unavailable LLUVIA JANINA Attending Unavailable LIDYA, ASHOK Attending Unavailable LLUVIA JANINA Attending Unavailable LLUVIA JANINA Attending Unavailable Medications Current Medications Medication Drug Class(es) Dates Sig (Normalized) Sig (Original) 24 hr buPROPion hydrochloride 150 mg extended release oral tablet (4 sources) Aminoketone Start: 03-17-2024 End: 03-17-2025 take 1 tablet by mouth once daily buPROPion XL (Wellbutrin XL) 150 MG 24 hr tablet Indications: Depression with anxiety Take 1 tablet (150 mg) by mouth Daily Do not crush, chew, or split. 30 tablet 11 03/17/2024 03/17/2025 Active docusate sodium 100 mg oral capsule (2 sources) Start: 01-02-2024 End: 04-01-2024 take 1 capsule by mouth twice daily as needed for constipation docusate sodium (Colace) 100 MG capsule Indications: Constipation during in second trimester Take 1 capsule (100 mg) by mouth 2 (two) times a day as needed for constipation 60 capsule 2 01/02/2024 04/01/2024 Active ferrous sulfate 325 mg oral tablet (4 sources) Start: 05-08-2024 take 1 tablet by mouth once daily FeroSul 325 (65 Fe) MG tablet Take 1 tablet by mouth Daily 05/08/2024 Active magnesium oxide 400 mg oral tablet (2 sources) Start: 01-02-2024 End: 04-01-2024 take 1 tablet by mouth once in the morning magnesium oxide (Mag-Ox) 400 MG tablet Indications: Constipation during in second trimester Take 1 tablet (400 mg) by mouth in the morning. 30 tablet 2 01/02/2024 04/01/2024 Active sertraline 50 mg oral tablet (10 sources) Serotonin Reuptake Inhibitor Start: 06-15-2024 sertraline (Zoloft) 50 MG tablet 06/15/2024 Active Start: 10-31-2023 End: 02-28-2024 take 1 tablet by mouth once daily sertraline (Zoloft) 100 MG tablet Indications: Depression with anxiety Take 1 tablet by mouth once daily at the same time. 30 tablet 3 01/17/2024 Active Problems Active Problems Problem Classification Problem [...] Test Name Value Interpretation Reference Range Facility IGP,APTIMA HPV,AGE GDLNon AGE GDLN ACOG TESTING Note . [facility] Comment on above: TESTS RESULT FLAG UN ITS REF RANGE LAB Clinician Provided Cytology Information Source.............Cervix;Endocervix No. of containers..01 ThinPrep Vial Age Valerie LEE Lori... FLAG LEGEND: L-Low Normal,H-High Normal,LL-Alert Low,HH-Alert High <-Panic Low,>-Panic High,A-Abnormal,AA-Critical Abnormal Performed at: 01 =G [facility] [id number] Yesy Vallecillo MD, IGP, RFX APTIMA HPV ASCU Note . [facility] Comment on above: TESTS RESULT FLAG U NITS REF RANGE LAB DIAGNOSIS: 02 NEGATIVE FOR INTRAEPITHELIAL LESION OR MALIGNANCY. Specimen adequacy: 02 Satisfactory for evaluation. Endocervical and/or squamous metaplastic cells (endocervical component) are present. Performed by: Yvonne Cormier, Polisher Sand ([facility]) . 02 Note: Note 02 The Pap smear is a screening test designed to aid in the detection of premalignant and malignant conditions of the uterine cervix. It is not a diagnostic procedure and should not be used as the sole means of detecting cervical cancer. Both false-positive and false-negative reports do occur. Test Methodology: Note 02 This liquid based ThinPrep(R) pap test was screened with the use of an image guided system. . 02 The HPV DNA reflex criteria were not met with this specimen result therefore, no HPV testing was performed. FLAG LEGEND: L-Low Normal,H-High Normal,LL-Alert Low,HH-Alert High <-Panic Low,>-Panic High,A-Abnormal,AA-Critical Abnormal Performed at: [address] [id number] Yesy Vallecillo MD, Performed at: = - [address] [id number] Radiation Control Worker: Yesy Vallecillo MD, Phone: [phone] Performed at: [address] [id number] Radiation Control Worker: Yesy Vallecillo MD, Phone: [phone] BRUSH-SPATULA CERVIX ENDOCERVIX [facility] [employer] e Urinalysis macro (dipstick) panel (U)on 01-02-2024 Bilirubin, UA Negative Negative - 4(70) +++ mg/dL [facility] Blood, UA Negative Negative - 50 Nathan/mcL [facility] iiko Clarity, UA Clear [facility] Color, UA Yellow [facility] Glucose, UA Negative Negative - 2000(110) ++++ mg/dL [facility] Interpretation and review of laboratory results Abnormal [facility] Ketones, UA Negative Negative - 160(16) ++++ mg/dL [facility] Leukocytes, UA Negative Negative - 500+++ Isha/mcL [facility] Nitrite, UA Negative Negative - Positive [facility] pH, UA 7.0 5 - 9 [facility] Protein, UA Positive Negative - 2000(20) ++++ mg/dL [facility] Spec Grav, UA 1.020 1 - 1.03 [facility] Urobilinogen, UA 0.2 0.2 - 12 mg/dL [facility] e CBC W MANUAL DIFFon 12-26-19 22 ATYPICAL LYMPH # Normal [facility] Comment on above: Performed By: #### C NICOLASMAN #### [facility] [address] [place] [address] Dr. Amy Carrion ATYPICAL LYMPH % Normal [facility] Comment on above: Performed By: #### C BCMAN #### [facility] [address] [place] [address] Dr. Amy Carrion BAND # 0.4 103/ul Critically high 0.0-0.3 [facility] Comment on above: Performed By: #### C BCKAM #### [facility] [address] [place] [address] Dr. Amy Carrion BAND % 3 % Normal 0-5 [facility] Comment on above: Performed By: #### C NOMAN #### [facility] [address] [place] [address] Dr. Amy Carrion BASOM # 0.00 103/ul Normal 0.00-0.10 [facility] Comment on above: Performed By: #### C NOMAN #### [facility] [address] [place] [address] Dr. Amy Carrion BASOM % 0.0 % Critically low 0.2-2.0 [facility] Comment on above: Performed By: #### C BCKAM #### [facility] [address] [place] [address] Dr. Amy Carrion BLAST # Normal [facility] Comment on above: Performed By: #### C BCKAM #### [facility] [address] [place] [address] Dr. Amy Carrion BLAST % Normal [facility] Comment on above: Performed By: #### C BCKAM #### [facility] [address] [address] [address] Amy Carrion CORRECTED WBC Normal 4.0-11.0 [facility] Comment on above: Performed By: #### C NOMAN #### [facility] [address] [place] [address] Dr. Amy Carrion EOS # 0.00 103/ul Normal 0.00-0.70 [facility] Comment on above: Performed By: #### C NOMAN #### [facility] [address] [place] [address] Dr. Amy Carrion EOS% 0.0 % Critically low 0.9-7.0 [facility] Comment on above: Performed By: #### C NOMAN #### [facility] [address] [place] [address] Dr. Amy Carrion HCT 24.9 % Critically low 36.0-48.0 [facility] Comment on above: Performed By: #### C NOMAN #### [facility] [address] [place] [address] Dr. Amy Carrion HGB 8.0 g/dl Critically low 12.0-16.0 [facility] Comment on above: Performed By: #### C NOMAN #### [facility] [address] [place] [address] Dr. Amy Carrion LYMPHM # 3.06 103/ul Normal 1.20-3.80 [facility] Comment on above: Performed By: #### C ONMAN #### [facility] [address] [place] [address] Dr. Amy Carrion LYMPHM% 22.0 % Normal 20.5-60.0 [facility] Comment on above: Performed By: #### C NOMAN #### [facility] [address] [place] [address] Dr. Amy Carrion MCH 30.8 pg Normal 26.7-34.0 [facility] Comment on above: Performed By: #### C NOMAN #### [facility] [address] [place] [address] Dr. Amy Carrion MCHC 32.1 g/dl Normal 29.9-35.2 [facility] Comment on above: Performed By: #### C NOMAN #### [facility] [address] [place] [address] Dr. Amy Carrion MCV 95.8 fL Normal 81.0-99.0 [facility] Comment on above: Performed By: #### C NOMAN #### [facility] [address] [place] [address] Dr. Amy Carrion METAMYELOCYTE # Normal [facility] Comment on above: Performed By: #### C NOMAN #### [facility] [address] [place] [address] Dr. Amy Carrion METAMYELOCYTE % Normal [facility] Comment on above: Performed By: #### C NOMAN #### [facility] [address] [place] [address] Dr. Amy Carrion MONOM# 1.25 103/ul Critically high 0.30-0.80 [facility] Comment on above: Performed By: #### C NOMAN #### [facility] [address] [place] [address] Dr. Amy Carrion MONOM% 9.0 % Normal 1.7-12.0 [facility] Comment on above: Performed By: #### C NOMAN #### [facility] [address] [place] [address] Dr. Amy Carrion MPV 11.0 fL Normal 9.5-13.5 [facility] Comment on above: Performed By: #### C NOMAN #### [facility] [address] [place] [address] Dr. Amy Carrion MYELOCYTE # Normal [facility] Comment on above: Performed By: #### C NOMAN #### [facility] [address] [place] [address] Dr. Amy Carrion MYELOCYTE % Normal [facility] Comment on above: Performed By: #### C NOMAN #### [facility] [address] [place] [address] Dr. Amy Carrion NRBC Normal [facility] Comment on above: Performed By: #### C NOMAN #### [facility] [address] [address] [address] Amy Carrion PLT 170 103/ul Normal 150-450 [facility] Comment on above: Performed By: #### C NOMAN #### [facility] [address] [address] [address] Amy Carrion RBC 2.60 106/ul Critically low 4.20-5.40 [facility] Comment on above: Performed By: #### C NOMAN #### [facility] [address] [place] [address] Dr. Amy Carrion RDW 13.1 % Normal 11.0-15.0 [facility] Comment on above: Performed By: #### C NOMAN #### [facility] [address] [place] [address] Dr. Amy Carrion SEG # 9.17 103/ul Critically high 1.40-6.50 The [facility] Comment on above: Performed By: #### C NOMAN #### [facility] [address] [place] [address] Dr. Amy Carrion SEG % 66.0 % Normal 43.0-75.0 [facility] Comment on above: Performed By: #### C NOMAN #### [facility] [address] [place] [address] Dr. Amy Carrion WBC 13.9 103/ul Critically high 4.0-11.0 [facility] Comment on above: Performed By: #### C NOMAN #### [facility] [address] [place] [address] Dr. Amy Carrion CBC AUTO DIFFon 12-25-2021 BASO # 0.0 103/ul Normal 0.0-0.1 [facility] Comment on above: Performed By: #### C BC #### [facility] [address] [place] [address] Dr. Amy Carrion Basophils/100 WBC (Bld) 0.1 % Critically low 0.2-2.0 [facility] Comment on above: Performed By: #### C BC #### [facility] [address] [address] [address] Amy Carrion EO # 0.0 103/ul Normal 0.0-0.7 [facility] Comment on above: Performed By: #### C BC #### [facility] [address] [place] [address] Dr. Amy Carrion Eosinophils/100 WBC (Bld) 0.0 % Critically low 0.9-7.0 [facility] Comment on above: Performed By: #### C BC #### [facility] [address] [place] [address] Dr. Amy Carrion Erythrocyte distribution width (RBC) [Ratio] 13.0 % Normal 11.0-15.0 [facility] Comment on above: Performed By: #### C BC #### [facility] [address] [place] [address] Dr. Amy Carrion Hematocrit (Bld) [Volume fraction] 25.2 % Critically low 36.0-48.0 [facility] Comment on above: Performed By: #### C BC #### [facility] [address] [place] [address] Dr. Amy Carrion Hemoglobin (Bld) [Mass/Vol] 8.2 g/dL Critically low 12.0-16.0 [facility] Comment on above: Result Comment: Post Performed By: #### C BC #### [facility] [address] [place] [address] Dr. Amy Carrion IG # 0.27 10e3/ul Critically high 0.00-0.03 The [facility] Comment on above: Performed By: #### C BC #### [facility] [address] [place] [address] Dr. Amy Carrion IG % 1.3 % Critically high 0.0-0.5 [facility] Comment on above: Performed By: #### C BC #### [facility] [address] [place] [address] Dr. Amy Carrion LYMPH # 2.3 103/ul Normal 1.2-3.8 [facility] Comment on above: Performed By: #### C BC #### [facility] [address] [address] [address] Amy Carrion Lymphocytes/100 WBC (Bld) 10.8 % Critically low 20.5-60.0 [facility] Comment on above: Performed By: #### C BC #### [facility] [address] [address] [address] Amy Carrion MANUAL DIFF REQ NO Normal [facility] Comment on above: Performed By: #### C BC #### [facility] [address] [place] [address] Dr. Amy Carrion MCH (RBC) [Entitic mass] 30.6 pg Normal 26.7-34.0 [facility] Comment on above: Performed By: #### C BC #### [facility] [address] [place] [address] Dr. Amy Carrion MCHC (RBC) [Mass/Vol] 32.5 g/dL Normal 29.9-35.2 [facility] Comment on above: Performed By: #### C BC #### [facility] [address] [place] [address] Dr. Amy Carrion MCV (RBC) [Entitic vol] 94.0 fL Normal 81.0-99.0 [facility] Comment on above: Performed By: #### C BC #### [facility] [address] [place] [address] Dr. Amy Carrion MONO # 1.8 103/ul Critically high 0.3-0.8 [facility] Comment on above: Performed By: #### C BC #### [facility] [address] [place] [address] Dr. Amy Carrion Monocytes/100 WBC (Bld) 8.4 % Normal 1.7-12.0 [facility] Comment on above: Performed By: #### C BC #### [facility] [address] [place] [address] Dr. Amy Carrion NEUT # 16.7 103/ul Critically high 1.4-6.5 The [facility] Comment on above: Performed By: #### C BC #### [facility] [address] [address] [address] Amy Carrion Neutrophils/100 WBC (Bld) 79.4 % Critically high 43.0-75.0 [facility] Comment on above: Performed By: #### C BC #### [facility] [address] [address] [address] Amy Carrion Platelet mean volume (Bld) [Entitic vol] 10.9 fL Normal 9.5-13.5 [facility] Comment on above: Performed By: #### C BC #### [facility] [address] [address] [address] Amy Carrion PLT 167 103/ul Normal 150-450 [facility] Comment on above: Performed By: #### C BC #### [facility] [address] [address] [address] Amy Carrion RBC 2.68 106/ul Critically low 4.20-5.40 [facility] Comment on above: Performed By: #### C BC #### [facility] [address] [address] [address] Amy Carrion WBC 21.0 103/ul Critically high 4.0-11.0 [facility] Comment on above: Performed By: #### C BC #### [facility] [address] [place] [address] Dr. Amy Carrion ASYMPTOMATIC COVID-19 ANTIGE Non 12-24-2021 EUA Statement SEE BELOW Normal [facility] Comment on above: Result Comment: This test [...] is revoked sooner. Performed By: #### C AMIRAH #### [facility] [address] [place] [address] Dr. Amy Carrion SARS-CoV-2 (COVID-19) RNA KERA+probe Ql (Unsp spec) Negative Normal NEGATIVE [facility] Comment on above: Result Comment: Nega tive results are presumptive. They do not preclude infection and should not be used as the sole basis for treatment decisions. Additional confirmatory testing by a molecular method should be considered. Performed By: #### C AMIRAH #### [facility] [address] [place] [address] Dr. Amy Carrion CBC W MANUAL DIFFon 12-24-19 22 ATYPICAL LYMPH # Normal [facility] Comment on above: Performed By: #### Luzmaria TINEO #### [facility] [address] [place] [address] Dr. Amy Carrion ATYPICAL LYMPH % Normal [facility] Comment on above: Performed By: #### Luzmaria TINEO #### [facility] [address] [place] [address] Dr. Amy Carrion BAND # 0.3 103/ul Normal 0.0-0.3 [facility] Comment on above: Performed By: #### C NOMAN #### [facility] [address] [place] [address] Dr. Amy Carrion BAND % 2 % Normal 0-5 [facility] Comment on above: Performed By: #### C NOMAN #### [facility] [address] [place] [address] Dr. Amy Carrion BASOM # 0.00 103/ul Normal 0.00-0.10 [facility] Comment on above: Performed By: #### C NOMAN #### [facility] [address] [place] [address] Dr. Amy Carrion BASOM % 0.0 % Critically low 0.2-2.0 The [facility] Comment on above: Performed By: #### C NOMAN #### [facility] [address] [place] [address] Dr. Amy Carrion BLAST # Normal [facility] Comment on above: Performed By: #### C NOMAN #### [facility] [address] [address] [address] Amy Carrion BLAST % Normal [facility] Comment on above: Performed By: #### C NOMAN #### [facility] [address] [place] [address] Dr. Amy Carrion CORRECTED WBC Normal 4.0-11.0 [facility] Comment on above: Performed By: #### C NOMAN #### [facility] [address] [place] [address] Dr. Amy Carrion EOS # 0.00 103/ul Normal 0.00-0.70 [facility] Comment on above: Performed By: #### C NOMAN #### [facility] [address] [place] [address] Dr. Amy Carrion EOS% 0.0 % Critically low 0.9-7.0 [facility] Comment on above: Performed By: #### C NOMAN #### [facility] [address] [place] [address] Dr. Amy Carrion HCT 36.0 % Normal 36.0-48.0 [facility] Comment on above: Performed By: #### C NOMAN #### [facility] [address] [place] [address] Dr. Amy Carrion HGB 12.2 g/dl Normal 12.0-16.0 [facility] Comment on above: Performed By: #### C NOMAN #### [facility] [address] [place] [address] Dr. Amy Carrion LYMPHM # 1.56 103/ul Normal 1.20-3.80 [facility] Comment on above: Performed By: #### C NOMAN #### [facility] [address] [place] [address] Dr. Amy Carrion LYMPHM% 9.0 % Critically low 20.5-60.0 [facility] Comment on above: Performed By: #### C NOMAN #### [facility] [address] [place] [address] Dr. Amy Carrion MCH 30.8 pg Normal 26.7-34.0 [facility] Comment on above: Performed By: #### C NOMAN #### [facility] [address] [place] [address] Dr. Amy Carrion MCHC 33.9 g/dl Normal 29.9-35.2 [facility] Comment on above: Performed By: #### C NOMAN #### [facility] [address] [place] [address] Dr. Amy Carrion MCV 90.9 fL Normal 81.0-99.0 [facility] Comment on above: Performed By: #### C BCKAM #### [facility] [address] [place] [address] Dr. Amy Carrion METAMYELOCYTE # Normal [facility] Comment on above: Performed By: #### C NOMAN #### [facility] [address] [place] [address] Dr. Amy Carrion METAMYELOCYTE % Normal [facility] Comment on above: Performed By: #### C NOMAN #### [facility] [address] [place] [address] Dr. Amy Carrion MONOM# 0.86 103/ul Critically high 0.30-0.80 [facility] Comment on above: Performed By: #### C NOMAN #### [facility] [address] [place] [address] Dr. Amy Carrion MONOM% 5.0 % Normal 1.7-12.0 [facility] Comment on above: Performed By: #### C NOMAN #### [facility] [address] [place] [address] Dr. Amy Carrion MPV 11.1 fL Normal 9.5-13.5 [facility] Comment on above: Performed By: #### C BCKAM #### [facility] [address] [place] [address] Dr. Amy Carrion MYELOCYTE # Normal [facility] Comment on above: Performed By: #### C NOMAN #### [facility] [address] [place] [address] Dr. Amy Carrion MYELOCYTE % Normal [facility] Comment on above: Performed By: #### C NOMAN #### [facility] [address] [address] [address] Amy Carrion NRBC Normal [facility] Comment on above: Performed By: #### C NOMAN #### [facility] [address] [address] [address] Amy Carrion PLT 203 103/ul Normal 150-450 [facility] Comment on above: Performed By: #### C NOMAN #### [facility] [address] [address] [address] Amy Carrion RBC 3.96 106/ul Critically low 4.20-5.40 [facility] Comment on above: Performed By: #### C NOMNA #### [facility] [address] [place] [address] Dr. Amy Carrion RDW 12.7 % Normal 11.0-15.0 [facility] Comment on above: Performed By: #### C NOMAN #### [facility] [address] [place] [address] Dr. Amy Carrion SEG # 14.53 103/ul Critically high 1.40-6.50 [facility] Comment on above: Performed By: #### C NOMAN #### [facility] [address] [place] [address] Dr. Amy Carrion SEG % 84.0 % Critically high 43.0-75.0 [facility] Comment on above: Performed By: #### C NOMAN #### [facility] [address] [place] [address] Dr. Amy Carrion WBC 17.3 103/ul Critically high 4.0-11.0 [facility] Comment on above: Performed By: #### C NOMAN #### [facility] [address] [place] [address] Dr. Amy Carrion DRUG SCREEN RAPID (URINE)on 12-24-2021 AMP Negative Normal NEGATIVE [facility] Comment on above: Performed By: #### D RUGRPD #### [facility] [address] [place] [address] Dr. Amy Carrion BAR Negative Normal NEGATIVE [facility] Comment on above: Performed By: #### D RUGRPD #### [facility] [address] [place] [address] Dr. Amy Carrion BUP Negative Normal NEGATIVE [facility] Comment on above: Performed By: #### D RUGRPD #### [facility] [address] [place] [address] Dr. Amy Carrion BZO Negative Normal NEGATIVE [facility] Comment on above: Performed By: #### D RUGRPD #### [facility] [address] [place] [address] Dr. Amy Carrion MARISSA Negative Normal NEGATIVE [facility] Comment on above: Performed By: #### D RUGRPD #### [facility] [address] [place] [address] Dr. Amy Carrion CUT-OFFS SEE BELOW Normal [facility] Comment on above: Result Comment: AMP [...] ng/mL Performed By: #### D RUGRPD #### [facility] [address] [place] [address] Dr. Amy Carrion DRUG CUT HEADER DRUG CLASS TEST SYSTEM CUT-OFF CONCENTRATIONS ARE FOLLOWS: Normal [facility] Comment on above: Performed By: #### D RUGRPD #### [facility] [address] [place] [address] Dr. Amy Carrion mAMP Negative Normal NEGATIVE [facility] Comment on above: Performed By: #### D RUGRPD #### [facility] [address] [address] [address] Amy Carrion MTD Negative Normal NEGATIVE [facility] Comment on above: Performed By: #### D RUGRPD #### [facility] [address] [place] [address] Dr. Amy Carrion OPI Negative Normal NEGATIVE [facility] Comment on above: Performed By: #### D RUGRPD #### [facility] [address] [place] [address] Dr. Amy Carrion OXY Negative Normal NEGATIVE [facility] Comment on above: Performed By: #### D RUGRPD #### [facility] [address] [place] [address] Dr. Amy Carrion PCP Negative Normal NEGATIVE [facility] Comment on above: Performed By: #### D RUGRPD #### [facility] [address] [place] [address] Dr. Amy Carrion PPX Negative Normal NEGATIVE [facility] Comment on above: Performed By: #### D RUGRPD #### [facility] [address] [place] [address] Dr. Amy Carrion TCA Negative Normal NEGATIVE [facility] Comment on above: Performed By: #### D RUGRPD #### [facility] [address] [place] [address] Dr. Amy Carrion THC Negative Normal NEGATIVE [facility] Comment on above: Performed By: #### D RUGRPD #### [facility] [address] [place] [address] Dr. Amy Crarion TYPE AND SCREENon 12-24-2021 TYPE AND SCREEN Negative Normal [facility] Comment on above: Performed By: #### G TT3P #### [facility] [address] [place] [address] Dr. Amy Carrion US PREG BIOPHY W [...] by: MARIELLA WHITEHEAD Date: 2021-12-22 10:47 Normal [facility] US PREG GROWTHon 12-22-2021 US PREG [...] by: MARIELLA WHITEHEAD Date: 2021-12-22 10:49 Normal [facility] GROUP B STREP CULTUREon S. agalactiae [...] S F Tetracycline >=16 R F Normal [facility] Comment on above: Performed By: #### G TT3P #### [facility] [address] [place] [address] Dr. Amy Carrion GTT 3 HR PREGon 11-07-2021 Glucose [Mass/Vol] 91 mg/dL Normal 74-106 [facility] Comment on above: Performed By: #### G TT3P #### [facility] [address] [address] [address] Amy Carrion Glucose [Mass/Vol] 172 mg/dL Normal [facility] Comment on above: Performed By: #### G TT3P #### [facility] [address] [place] [address] Dr. Amy Carrion Glucose [Mass/Vol] 134 mg/dL Normal [facility] Comment on above: Performed By: #### G TT3P #### [facility] [address] [place] [address] Dr. Amy Carrion Glucose [Mass/Vol] 117 mg/dL Normal [facility] Comment on above: Performed By: #### G TT3P #### [facility] [address] [place] [address] Dr. Amy Carrion HEPATITIS C ANTIBODYon 10-27 Hep C Virus Ab 0.2 s/co ratio Normal 0.0-0.9 [facility] Comment on above: Result Comment: Nega tive: < 0.8 Indeterminate: 0.8 - 0.9 Positive: > 0.9 . The CDC recommends that a positive HCV antibody result be followed up with a HCV Nucleic Acid Amplification test (228375). Performed By: #### G TT3P #### [facility] [address] [place] [address] Dr. Amy Carrion HIV 1 AND 2 WITH REFLEXon HIV Screen 4th Generation wRfx Non-Reactive Normal Non Reactive [facility] Comment on above: Performed By: #### H IV12 #### [facility] [address] [place] [address] Dr. Amy Carrion GLUCOSE - 1HRon 10-26-2021 Glucose [Mass/Vol] 142 mg/dL Critically high 74-106 [facility] Comment on above: Performed By: #### G LU1HR #### [facility] [address] [place] [address] Dr. Amy Carrion HEMOGRAM AND PLATELon 2020 Hematocrit (Bld) [Volume fraction] 32.8 % Critically low 36.0-48.0 [facility] Comment on above: Performed By: #### H H #### [facility] [address] [place] [address] Dr. Amy Carrion Hemoglobin (Bld) [Mass/Vol] 10.7 g/dL Critically low 12.0-16.0 [facility] Comment on above: Performed By: #### H H #### [facility] [address] [place] [address] Dr. Amy Carrion MCH (RBC) [Entitic mass] 30.6 pg Normal 26.7-34.0 [facility] Comment on above: Performed By: #### H H #### [facility] [address] [place] [address] Dr. Amy Carrion MCHC (RBC) [Mass/Vol] 32.6 g/dL Normal 29.9-35.2 [facility] Comment on above: Performed By: #### H H #### [facility] [address] [place] [address] Dr. Amy Carrion MCV (RBC) [Entitic vol] 93.7 fL Normal 81.0-99.0 [facility] Comment on above: Performed By: #### H H #### [facility] [address] [place] [address] Dr. Amy Carrion PLT 197 103/ul Normal 150-450 [facility] Comment on above: Performed By: #### H H #### [facility] [address] [place] [address] Dr. Amy Carrion RBC 3.50 106/ul Critically low 4.20-5.40 [facility] Comment on above: Performed By: #### H H #### [facility] [address] [place], [place] [address] Dr. Amy Carrion WBC 12.4 103/ul Critically high 4.0-11.0 [facility] Comment on above: Performed By: #### H H #### [facility] [address] [place], [place] [address] Dr. Amy Carrion Vital Signs Date Time Vital Sign Value Performing Clinician Faci lity 08-20-2024 14:17-0400 Body mass index (BMI) [Ratio] 32.01 kg/m2 Janina Teixeira PA Work Phone: [facility] 08-20-2024 14:17-040 Body weight 79.38 kg Janina Lluvia PA Work Phone: [facility] 08-20-2024 14:17-0400 Diastolic blood pressure 72 mm[Hg] Janina Teixeira PA Work Phone: [facility] 08-20-2024 14:17-0400 Systolic blood pressure 118 mm[Hg] Janina Lluvia PA Work Phone: [facility] 01-02-2024 11:26-0500 Body mass index (BMI) [Ratio] 33.62 kg/m2 Janina Lluvia PA Work Phone: [facility] 01-02-2024 11:26-0500 Body weight 83.37 kg Janina Salem PA Work Phone: [facility] 01-02-2024 11:26-0500 Diastolic blood pressure 74 mm[Hg] Janina Lluvia PA Work Phone: [facility] 01-02-2024 11:26-0500 Systolic blood pressure 122 mm[Hg] Janina Salem PA Work Phone: [facility] Healthcare Encounters Encounter Date Encounter Type Care Provider Facility Start: 02-08-2025 End: 02-08-2025 ambulatory JANINA TEIXEIRA Not Available Start: 08-20-2024 End: 08-20-2024 ambulatory JANINA TEIXEIRA Not Available Start: 08-20-2024 End: 08-20-2024 Bamboo flowsheet Janina Salem PA Work Phone: [facility] Start: 08-20-2024 End: 08-27-2024 Clinisync Result Encounter Ashok Lidya DO Work Phone: [facility] Unsolicited Start: 08-20-2024 End: 08-27-2024 Clinisync Result Encounter Ashok Lidya DO Work Phone: [facility] Unsolicited Start: 08-20-2024 End: 08-20-2024 Patient encounter procedure Janina DAY Work Phone: [facility] Start: 08-20-2024 End: 08-20-2024 Periodic preventive med est patient 18-39 yrs Janina DAY Work Phone: [facility] Comment on above: Well woman exam with routine gynecological exam Start: 06-17-2024 End: 06-17-2024 ambulatory JANINA TEIXEIRA Not Available Start: 05-13-2024 End: 05-13-2024 ambulatory ASHOK LIDYA Not Available Start: 04-29-2024 End: 04-29-2024 ambulatory JANINA LLUVIA Not Available Start: 04-23-2024 End: 04-23-2024 ambulatory ASHOK LIDYA Not Available Start: 04-14-2024 End: 04-14-2024 ambulatory ASHOK LIDYA Not Available Start: 03-31-2024 End: 03-31-2024 ambulatory JANINA LLUVIA Not Available Start: 03-17-2024 End: 03-17-2024 ambulatory ASHOK LIDYA Not Available Start: 03-03-2024 End: 03-03-2024 ambulatory JANINA LLUVIA Not Available Start: 02-17-2024 End: 02-17-2024 ambulatory ASHOK LIDYA Not Available Start: 01-02-2024 End: 01-02-2024 flow sheet Janina DAY Work Phone: [facility] Comment on above: Second trimester pre gnancy; Constipation during in second trimester Start: 07-27-2022 End: 07-27-[address] ASHOK BOSE Facility: Start: 01-02-2022 End: 01-18-[address] ASHOK [...] Date Procedure Procedure Detail Performing Clinician Start: 08-20-2024 IGP,APTIMA HPV,AGE GDLN Ashok Bose DO Work Phone: Start: 01-02-2024 Urnls dip stick/tabl et rgnt non-auto w/o micrscp Janina DAY Work Phone: Start: 12-24-2021 Extraction of Produc ts of Conception, Low Cervical, Open Approach DR TRAY MILLS Plan of Treatment Date Care Activity Detail Author Start: 08-26-2025 End: 08-26-2025 Patient encounter procedure 08/26/2025 3:00 PM EDT Office Visit [facility] [address] [place] [address] Janina Teixeira PA [address] [place] [address] [facility] Start: 06-30-2024 End: 06-30-2024 Patient encounter procedure 06/30/2024 2:00 PM EDT Office Visit [facility] [address] [place] [address] Ashok Bose DO [address] [place], [place] [id number] [facility] Start: 02-03-2024 End: 02-03-2024 Patient encounter procedure 02/03/2024 1:50 PM EDT Routine [facility] [address] [facility] [place] [address] Ashok Bose DO [address] [facility] [place] [address] [facility] Cytology Cervical or vaginal smear or scraping study Pap Smear Pathology and Cytology Routine Well woman exam with routine gynecological exam Ordered: 08/20/2024 [facility] Work Phone: Comment on above: Ordered: 08/20/2024 Payers Date Payer Category Payer Unknown BCBS BCBS [id number] [id number] 2023-Present [phone] [address] [place] [address] [id number] 2023 Unknown [id number] 1997 Unknown [id number] [id number]3 1997 Unknown [id number] 2.16.840.1.127920.3.579.2.593 1997 Unknown [id number] 2.16.840.1.469822.3.579.2.593 1997 Unknown [id number] 2.16.840.1.125470.3.579.2.593 1997 Unknown [id number] 2.16.840.1.845426.3.579.2.593 1997 Unknown [id number] 2.16.840.1.373363.3.579.2.593 1997 Unknown [id number] 2.16.840.1.771060.3.579.2.593 1997 Unknown [id number] 2.16.840.1.845453.3.579.2.593 1997 Unknown [id number] 2.16.840.1.013666.3.579.2.9 1997 Unknown [id number] 2.16.840.1.326992.3.579.2.1259 1997 Unknown [id number] 2.16.840.1.688428.3.579.2.9 1997 Unknown [id number] 2.16.840.1.569711.3.579.2.9 1997 Unknown [id number] 2.16.840.1.423484.3.579.2.9 1997 Unknown [id number] 2.16.840.1.752463.3.579.2.9 1997 Unknown [id number] 2.16.840.1.169951.3.579.2.9 1997 Unknown [id number] 2.16.840.1.483874.3.579.2.9 1997 Unknown [id number] 2.16.840.1.138304.3.579.2.9 1997 Unknown [id number] 2.16.840.1.424497.3.579.2.9 1997 Unknown [id number] 2.16.840.1.492851.3.579.2.1259 1957 Self-pay 1957 Unknown [id number] Social History Date Type Detail Facility Tobacco smoking stat [facility] Tobacco smoking consumption unknown [facility] Start: 08-16-2023 [facility] Start: 1997 Sex Assigned At Not on file [facility] Gender identity Not on file [facility] History of Present illness Narrative 08-20-2024 SHAY Flores - 08/20/2024 2:00 PM EDT Note Date & Type Note Facility 08-20-2024 History of Presen t illness Narrative Reason for Appointment: Patient ID: Ethan Madrigal is a 28 y.o. female who presents for Gynecologic Exam Patient presents today for Annual Exam. MEDICATIONS Current Outpatient Medications Medication Instructions buPROPion XL (WELLBUTRIN XL) 150 mg, Oral, Daily, Do not crush, chew, or split. FeroSul 325 (65 Fe) MG tablet 1 tablet, Oral, Daily sertraline (Zoloft) 100 MG tablet Take 1 tablet by mouth once daily at the same time. sertraline (Zoloft) 50 MG tablet ALLERGIES No Known Allergies PROBLEMS Active Ambulatory Problems Diagnosis Date Noted No Active Ambulatory Problems Resolved Ambulatory Problems Diagnosis Date Noted No Resolved Ambulatory Problems Past Medical History: Diagnosis Date Anxiety Frequent headaches HISTORY PAST MEDICAL HISTORY SOCIAL HISTORY Past Medical History: Diagnosis Date Anxiety Frequent headaches Social History Tobacco Use Smoking status: Not on file Smokeless tobacco: Not on file Substance Use Topics Alcohol use: Not on file Drug use: Not on file FAMILY HISTORY Family History Problem Relation Name Age of Onset Hypertension Mother Diabetes Father Cancer Maternal Grandmother SURGICAL HISTORY Past Surgical History: Procedure Laterality Date SECTION, CLASSIC 05/06/2024 SECTION, LOW TRANSVERSE 12/24/2021 PAP SMEAR 03/01/2021 negative REVIEW OF SYSTEMS Review of Systems: Review of Systems Constitutional: Negative. HENT: Negative. Eyes: Negative. Respiratory: Negative. Cardiovascular: Negative. Gastrointestinal: Negative. Genitourinary: Negative. Musculoskeletal: Negative. Skin: Negative. Neurological: Negative. All other systems reviewed and are negative. Hematological: Negative. Endocrine: Negative. Allergic/Immunologic: Negative. OBJECTIVE Objective: Physical Exam Constitutional: Appearance: Normal appearance. She is well-developed. Genitourinary: Vulva normal. Right Adnexa: not tender and no mass present. Left Adnexa: not tender and no mass present. No cervical discharge. Breasts: Breasts are soft. Right: Normal. Left: Normal. HENT: Head: Normocephalic. Nose: Nose normal. Mouth/Throat: Mouth: Mucous membranes are moist. Cardiovascular: Rate and Rhythm: Normal rate and regular rhythm. Pulmonary: Effort: Pulmonary effort is normal. Breath sounds: Normal breath sounds. Abdominal: General: Bowel sounds are normal. There is no distension. Palpations: Abdomen is soft. Tenderness: There is no abdominal tenderness. There is no guarding or rebound. Musculoskeletal: General: No swelling. Normal range of motion. Cervical back: Normal range of motion. Right lower leg: No edema. Left lower leg: No edema. Neurological: General: No focal deficit present. Mental Status: She is alert and oriented to person, place, and time. Skin: General: Skin is warm and dry. Psychiatric: Mood and Affect: Mood normal. Behavior: Behavior normal. Vitals and nursing note reviewed. Exam conducted with a card cutter present. Vitals: Estimated body mass index is 32.01 kg/m as calculated from the following: Height as of 06/25/23: 5' 2 . Weight as of this encounter: 175 lb. BP: 118/72 No LMP recorded. ASSESSMENT & PLAN ICD-10-CM 1. Well woman exam with routine gynecological exam Z01.419 Pap Smear Pt present today for annual visit. Pt has no concerns at this time. Pt denies any b/c and is currently . Annual and breast exam was preformed and collected by Janina Teixeira PA-C. Patient to return back in office in a year for her annual visit. Documented by Amalia Yuan MA on behalf of: SHAY Flores documented in this encounter [facility] History of Present illness Narrative 01-02-2024 SHAY [...] trimester documented in this encounter [facility] Evaluation note Note Date & Type Note Facility Evaluation note Diagnosis Well woman exam with routine gynecological exam Routine gynecological examination documented in this encounter [facility] Summary Purpose Family History No Family History Records FoundNo Family History Records Found Advance Directives No Advanced Directives Records FoundNo Advanced Directives Records Found Additional Source Comments INFORMATION SOURCE (unrecogn ized section and content) DATE CREATED AUTHOR 07/27/2022 [facility] DATE CREATED AUTHOR AUTHOR'S SEEMA ATLIAN 02/09/2025 [facility] EPIC Reason for Visit (unrecogniz ed section and content) Reason Comments Routine Visit Reason Comments Gynecologic Exam FOR RECORDS PERTAINING TO PATIENTS WHO ARE [...] BE BASED ON THE PRIMARY CLINICAL RECORDS. [employer] [facility]. provides no warranty or guarantee of the accuracy or completeness of information in this document.
[2025-09-10 15:13] LABS: Age Gdln ACOG Testing Note (.); IGP, rfx Aptima HPV ASCU Note (.)
== END 2025-09-06 21:11 | disposition home or self-care (01) ==
LOC: LAB 21:10
PROVIDERS: Visit Provider Physician Assistant
DX: Z01.419 Encounter for gynecological examination (general) (routine) without abnormal findings (principal)
CPT/HCPCS: 88175